=== PATIENT | female | born 1940 | race Caucasian/White ===

== ENCOUNTER 2018-10-15 04:49 | Emergency (ER) | payer OTHER, MEDICARE ==
[2018-10-15 05:57] LABS: Urine Appearance CLOUDY; Urine Bilirubin NEGATIVE (NEG); Urine Blood 1+ (NEG); Urine Color YELLOW; Urine Glucose NEGATIVE (NEG); Urine Microscopic Reflex ORDER UMIC; Urine Protein 2+ (NEG); Urine Urobilinogen 0.2 mg/dL (0.2-1.0); Urine pH 5.5 (5.0-7.0)
[2018-10-15 05:59] LABS: Urine Blood 1+ (NEG); Urine Glucose NEGATIVE (NEG); Urine Protein 2+ (NEG); Urine Specific Gravity 1.015 (1.005-1.030)
[2018-10-15 06:06] LABS: Absolute Lymphocytes (CBC) 1.4 K/uL (0.7-4.9); Absolute Monocytes 0.4 K/uL (0.1-1.3); Absolute Neutrophil 4.4 K/uL (1.8-8.0); Basophils % 0.6 % (0-1.3); Eosinophils % 3.8 % (0-4.4); Hematocrit 38.2 % (36.0-45.0); Lymphocytes % 21.9 % (15.3-44.8); MCH 31.3 pg (27.0-35.0); MCV 91.3 fL (80-100); MPV 8.8 fL (7.6-11.3); Monocytes % 5.8 % (3.3-12.3); RBC Red Blood Cell Count 4.18 M/uL (3.86-4.86)
[2018-10-15 06:09] LABS: Urine Bacteria <20 /HPF (<20); Urine Culture Reflex Order REFLEXED; Urine RBC <5 /HPF (NONE SEEN)
[2018-10-15 06:36] LABS: Albumin 3.7 g/dL (3.4-5.0); Bilirubin Direct 0.2 mg/dL (0-0.2); Bilirubin Total 0.5 mg/dL (0.2-1.0); Potassium 4.1 mmol/L (3.5-5.1); Protein, Total 7.6 g/dL (6.4-8.2)
[2018-10-15] MEDS ORDERED: NA CHLORIDE 0.9% 500 ML ONE (06:36)
[2018-10-15] MEDS ORDERED: CEFTRIAXONE/SWI 1gm 1 GM/10 ML SYR ONE (06:37)
--- NOTE | 2018-10-15 08:11 | EDPHYS ---
Physician Documentation [facility] Name: Tsering Osman Age: 78 yrs Sex: Female : 1940 Arrival Date: 10/15/2018 Time: 04:50 Bed 20 Private MD: Alexia Arellano C ED Physician Maulik Webster HPI: 10/15 06:18 This 78 yrs old Female presents to ER via Ambulatory with complaints of Back gris Pain. 06:18 The patient presents with pain that is acute. The symptoms are located in the low back, gris lumbar spine. Onset: The symptoms/episode began/occurred 2 day(s) ago. The pain does not radiate. Associated signs and symptoms: The patient has no apparent associated signs or symptoms. Modifying factors: The patient symptoms are alleviated by remaining still, the patient symptoms are aggravated by movement. Severity of symptoms: At their worst the symptoms were mild, moderate, in the emergency department the symptoms are unchanged. The patient has not experienced similar symptoms in the past. Historical: - Allergies: 05:12 NKA; jd3 - Home Meds: 05:12 aspirin 81 mg Oral chew 1 tab once daily [Active]; atorvastatin 20 mg Oral tab 1 tab jd3 nightly [Active]; Centrum Silver Oral daily [Active]; Coreg 6.25 mg Oral tab 1 tab 2 times per day [Active]; ferrous sulfate 325 mg (65 mg iron) Oral tab 2 tab daily [Active]; Flovent Inhl 100 mcg twice a day [Active]; furosemide 40 mg Oral tab 1 tab 2 times per day [Active]; gabapentin 300 mg Oral cap 3 times per day [Active]; glimepiride 4 mg Oral tab 1 tab twice a day [Active]; Oxybutynin Chloride Oral 1 tab once daily [Active]; trazodone 50 mg Oral tab nightly [Active]; Ventolin HFA 90 mcg/actuation Nebulizer HFAA 2 puffs Q4H prn [Active]; Plavix 75 mg Oral tab 1 tab once daily [Active]; Onglyza 5 mg oral tab 1 tab once daily [Active]; magnesium oxide 400 mg oral tab 400 mg daily [Active]; - PMHx: 05:12 CHF; Diabetes - NIDDM; Hyperlipidemia; Hypertension; jd3 - PSHx: 05:12 right knee sx; back sx; Heart stents; jd3 - Immunization history:: Adult Immunizations up to date, Pneumococcal vaccine is not up to date, Flu vaccine is not up to date. - Social history:: Smoking status: Patient/guardian denies using tobacco. - Ebola Screening: : Patient negative for fever greater than or equal to 101.5 degrees Fahrenheit, and additional compatible Ebola Virus Disease symptoms. - Family history:: not pertinent. ROS: 06:18 Constitutional: Negative for fever, chills, and weight loss, Eyes: Negative for injury, gris pain, redness, and discharge, ENT: Negative for injury, pain, and discharge, Neck: Negative for injury, pain, and swelling, Cardiovascular: Negative for chest pain, palpitations, and edema, Respiratory: Negative for shortness of breath, cough, wheezing, and pleuritic chest pain, Abdomen/GI: Negative for abdominal pain, nausea, vomiting, diarrhea, and constipation, : Negative for injury, bleeding, discharge, and swelling, MS/Extremity: Negative for injury and deformity, Skin: Negative for injury, rash, and discoloration, Neuro: Negative for headache, weakness, numbness, tingling, and seizure, Psych: Negative for depression, anxiety, suicide ideation, homicidal ideation, and hallucinations, Allergy/Immunology: Negative for hives, rash, and allergies, Endocrine: Negative for neck swelling, polydipsia, polyuria, polyphagia, and marked weight changes, Hematologic/Lymphatic: Negative for swollen nodes, abnormal bleeding, and unusual bruising. 06:18 Back: Positive for decreased range of motion, pain at rest, pain with movement, flank pain, on the right. Exam: 06:18 Constitutional: This is a well developed, well nourished patient who is awake, alert, gris and in no acute distress. Head/Face: Normocephalic, atraumatic. Eyes: Pupils equal round and reactive to light, extra-ocular motions intact. Lids and lashes normal. Conjunctiva and sclera are non-icteric and not injected. Cornea within normal limits. Periorbital areas with no swelling, redness, or edema. ENT: Nares patent. No nasal discharge, no septal abnormalities noted. Tympanic membranes are normal and external auditory canals are clear. Oropharynx with no redness, swelling, or masses, exudates, or evidence of obstruction, uvula midline. Mucous membranes moist. Neck: Trachea midline, no thyromegaly or masses palpated, and no cervical lymphadenopathy. Supple, full range of motion without nuchal rigidity, or vertebral point tenderness. No Meningismus. Chest/axilla: Normal chest wall appearance and motion. Nontender with no deformity. No lesions are appreciated. Cardiovascular: Regular rate and rhythm with a normal S1 and S2. No gallops, murmurs, or rubs. Normal PMI, no JVD. No pulse deficits. Respiratory: Lungs have equal breath sounds bilaterally, clear to auscultation and percussion. No rales, rhonchi or wheezes noted. No increased work of breathing, no retractions or nasal flaring. Abdomen/GI: Soft, non-tender, with normal bowel sounds. No distension or tympany. No guarding or rebound. No evidence of tenderness throughout. Female : Normal external genitalia. Skin: Warm, dry with normal turgor. Normal color with no rashes, no lesions, and no evidence of cellulitis. MS/ Extremity: Pulses equal, no cyanosis. Neurovascular intact. Full, normal range of motion. Neuro: Awake and alert, GCS 15, oriented to person, place, time, and situation. Cranial nerves II-XII grossly intact. Motor strength 5/5 in all extremities. Sensory grossly intact. Cerebellar exam normal. Normal gait. Psych: Awake, alert, with orientation to person, place and time. Behavior, mood, and affect are within normal limits. 06:18 Back: pain, that is mild, ROM is painful, normal spinal alignment noted, CVA tenderness, is absent. Vital Signs: 05:12 BP 171 / 83; Pulse 81; Resp 18 S; Temp 99.1(O); Pulse Ox 95% on R/A; Weight 90.72 kg jd3 (R); Height 5 ft. 7 in. (170.18 cm) (R); Pain 8/10; 06:52 BP 176 / 78; Pulse 79; Resp 16 S; Pulse Ox 94% on R/A; jd3 07:35 BP 167 / 75; Pulse 80; Resp 18; Pulse Ox 100% on R/A; hj 08:50 BP 158 / 74; Pulse 79; Resp 18; Pulse Ox 96% on R/A; hj 05:12 Body Mass Index 31.32 (90.72 kg, 170.18 cm) jd3 MDM: 05:18 Patient medically screened. tw4 05:59 Patient medically screened. [facility] 06:20 Data reviewed: vital signs, nurses notes, lab test result(s), radiologic studies, CT gris scan. 10/15 05:18 Order name: Basic Metabolic Panel [facility] 10/15 05:18 Order name: CBC with Diff [facility] 10/15 05:18 Order name: Creatinine for Radiology [facility] 10/15 05:18 Order name: Hepatic Function [facility] 10/15 05:18 Order name: Lipase [facility] 10/15 05:18 Order name: Urinalysis [facility] 10/15 05:51 Order name: Urine Dipstick--Ancillary (enter results) [facility] 10/15 05:57 Order name: Urinalysis; Complete Time: 06:16 [facility] 10/15 05:59 Order name: Urine Dipstick-Ancillary; Complete Time: 06:16 [facility] 10/15 06:10 Order name: Urine Microscopic Only; Complete Time: 06:16 [facility] 10/15 06:12 Order name: CBC with Automated Diff; Complete Time: 06:16 [facility] 10/15 06:37 Order name: Basic Metabolic Panel; Complete Time: 08:01 [facility] 10/15 06:37 Order name: Liver (Hepatic) Function; Complete Time: 08:01 [facility] 10/15 06:37 Order name: Lipase; Complete Time: 08:01 [facility] 10/15 05:18 Order name: IV Saline Lock; Complete Time: 05:48 [facility] 10/15 05:18 Order name: Labs collected and sent; Complete Time: 05:48 [facility] 10/15 06:17 Order name: CT Stone Protocol [facility] 10/15 06:37 Order name: Creatinine (Radiology Only); Complete Time: 08:01 [facility] 10/15 08:16 Order name: CT EDMS Administered Medications: 06:50 Drug: NS 0.9% 500 ml Route: IV; Rate: bolus; Site: left antecubital; jd3 07:30 Follow up: IV Status: Completed infusion hj 06:50 Drug: Rocephin - (cefTRIAXone) 1 grams Route: IVPB; Infused Over: 30 mins; Site: left jd3 antecubital; 07:00 Follow up: IV Status: Completed infusion hj 08:10 Drug: Cipro 500 mg Route: PO; hj 08:45 Follow up: Response: No adverse reaction hj 08:10 Drug: Dilaudid 0.5 mg Route: IVP; Site: left antecubital; hj 08:45 Follow up: Response: No adverse reaction; Pain is decreased hj 08:10 Drug: Zofran 4 mg Route: IVP; Site: left antecubital; hj 08:45 Follow up: Response: No adverse reaction; Nausea is decreased hj 08:10 Drug: Richardson 5 mg-325 mg 1 tabs Route: PO; hj 08:45 Follow up: Response: No adverse reaction; Pain is decreased Point of Care Testing: Blood Glucose: 07:43 Blood Glucose: 254 mg/dL; jb1 Ranges: Critical Glucose Levels:Adult <50 mg/dl or >400 mg/dl <40 mg/dl or >180 mg/dl Disposition: 10/15/18 08:10 Discharged to Home. Impression: Low back pain, Urinary tract infection, site not specified, Type 2 diabetes mellitus, Obesity, unspecified, Unspecified kidney failure, Cholelithiasis. - Condition is Stable. - Discharge Instructions: Back Pain, Adult, Chronic Back Pain, Type 2 Diabetes Mellitus, Diagnosis, Adult, Dysuria, Obesity, Adult, Urinary Tract Infection, Adult, Cholelithiasis, Cholelithiasis, [id number]. - Prescriptions for Skelaxin 800 mg Oral Tablet - take 1 tablet by ORAL route every 8 hours As needed; 21 tablet. Tylenol- Codeine #3 300-30 mg Oral Tablet - take 2 tablets by ORAL route every 6 hours As needed; 26 tablet. Cipro 250 mg Oral Tablet - take 1 tablet by ORAL route every 12 hours; 14 tablet. - Medication Reconciliation Form, Thank You Letter, Antibiotic Education, Prescription Opioid Use form. - Follow up: A Arellano; When: 2 - 3 days; Reason: Recheck today's complaints, Continuance of care, Re-evaluation by your physician. - Problem is new. - Symptoms have improved. Signatures: Dispatcher [employer] Maulik Trent MD MD cha Joaquin, Henry, RN RN hj Davies, Jonathon, RN RN jd3 Wadley, Terrence, MD MD tw4 Corrections: (The following items were deleted from the chart) 08:11 08:10 10/15/2018 08:10 Discharged to Home. Impression: Low back pain; Urinary tract gris infection, site not specified; Type 2 diabetes mellitus; Obesity, unspecified; Unspecified kidney failure. Condition is Stable. Discharge Instructions: Back Pain, Adult, Chronic Back Pain, Type 2 Diabetes Mellitus, Diagnosis, Adult, Dysuria, Obesity, Adult, Urinary Tract Infection, Adult. Prescriptions for Skelaxin 800 mg Oral Tablet - take 1 tablet by ORAL route every 8 hours As needed; 21 tablet, Tylenol-Codeine #3 300-30 mg Oral Tablet - take 2 tablets by ORAL route every 6 hours As needed; 26 tablet, Cipro 500 mg Oral Tablet - take 1 tablet by ORAL route every 12 hours for 7 days; 14 tablet. and Forms are Medication Reconciliation Form, Thank You Letter, Antibiotic Education, Prescription Opioid Use. Follow up: A Arellano; When: 2 - 3 days; Reason: Recheck today's complaints, Continuance of care, Re-evaluation by your physician. Problem is new. Symptoms have improved. [facility] 08:51 08:11 10/15/2018 08:10 Discharged to Home. Impression: Low back pain; Urinary tract hj infection, site not specified; Type 2 diabetes mellitus; Obesity, unspecified; Unspecified kidney failure; Cholelithiasis. Condition is Stable. Discharge Instructions: Back Pain, Adult, Chronic Back Pain, Type 2 Diabetes Mellitus, Diagnosis, Adult, Dysuria, Obesity, Adult, Urinary Tract Infection, Adult. Prescriptions for Skelaxin 800 mg Oral Tablet - take 1 tablet by ORAL route every 8 hours As needed; 21 tablet, Tylenol-Codeine #3 300-30 mg Oral Tablet - take 2 tablets by ORAL route every 6 hours As needed; 26 tablet, Cipro 500 mg Oral Tablet - take 1 tablet by ORAL route every 12 hours for 7 days; 14 tablet. and Forms are Medication Reconciliation Form, Thank You Letter, Antibiotic Education, Prescription Opioid Use. Follow up: A Arellano; When: 2 - 3 days; Reason: Recheck today's complaints, Continuance of care, Re-evaluation by your physician. Problem is new. Symptoms have improved. gris
--- NOTE | 2018-10-15 08:11 | ER ---
Nurse's Notes [facility] Name: Tsering Osman Age: 78 yrs Sex: Female : 1940 Arrival Date: 10/15/2018 Time: 04:50 Bed 20 Private MD: Alexia Arellano C Diagnosis: Low back pain;Urinary tract infection, site not specified;Type 2 diabetes mellitus;Obesity, unspecified;Unspecified kidney failure;Cholelithiasis Presentation: 10/15 05:02 Presenting complaint: Patient states: "I have been having lower back spasms for 3 weeks jd3 now.". Transition of care: patient was not received from another setting of care. Onset of symptoms was September 26, 2018. Risk Assessment: Do you want to hurt yourself or someone else? Patient reports no desire to harm self or others. Initial Sepsis Screen: Does the patient meet any 2 criteria? No. Patient's initial sepsis screen is negative. Does the patient have a suspected source of infection? No. Patient's initial sepsis screen is negative. Care prior to arrival: Medication(s) given: Tylenol, taken at 0350. 05:02 Method Of Arrival: Ambulatory jd3 05:02 Acuity: MANNIE 4 jd3 Historical: - Allergies: 05:12 NKA; jd3 - Home Meds: 05:12 aspirin 81 mg Oral chew 1 tab once daily [Active]; atorvastatin 20 mg Oral tab 1 tab jd3 nightly [Active]; Centrum Silver Oral daily [Active]; Coreg 6.25 mg Oral tab 1 tab 2 times per day [Active]; ferrous sulfate 325 mg (65 mg iron) Oral tab 2 tab daily [Active]; Flovent Inhl 100 mcg twice a day [Active]; furosemide 40 mg Oral tab 1 tab 2 times per day [Active]; gabapentin 300 mg Oral cap 3 times per day [Active]; glimepiride 4 mg Oral tab 1 tab twice a day [Active]; Oxybutynin Chloride Oral 1 tab once daily [Active]; trazodone 50 mg Oral tab nightly [Active]; Ventolin HFA 90 mcg/actuation Nebulizer HFAA 2 puffs Q4H prn [Active]; Plavix 75 mg Oral tab 1 tab once daily [Active]; Onglyza 5 mg oral tab 1 tab once daily [Active]; magnesium oxide 400 mg oral tab 400 mg daily [Active]; - PMHx: 05:12 CHF; Diabetes - NIDDM; Hyperlipidemia; Hypertension; jd3 - PSHx: 05:12 right knee sx; back sx; Heart stents; jd3 - Immunization history:: Adult Immunizations up to date, Pneumococcal vaccine is not up to date, Flu vaccine is not up to date. - Social history:: Smoking status: Patient/guardian denies using tobacco. - Ebola Screening: : Patient negative for fever greater than or equal to 101.5 degrees Fahrenheit, and additional compatible Ebola Virus Disease symptoms. - Family history:: not pertinent. Screenin:16 Abuse screen: Denies threats or abuse. Nutritional screening: No deficits noted. jd3 Tuberculosis screening: No symptoms or risk factors identified. Fall Risk Ambulatory Aid- Crutches/Cane/Walker (15 pts). Gait- Weak (10 pts.). Mental Status- Oriented to own ability (0 pts). Total Handy Fall Scale indicates Low Risk Score (25-44 pts). Fall prevention measures have been instituted. Side Rails Up X 2 Placed close to Nursing Station Frequent Obs/Assesments occuring Family Present and informed to notify staff if they need to leave bedside. Assessment: 05:14 General: Appears in no apparent distress. uncomfortable, Behavior is calm, cooperative, jd3 appropriate for age. Pain: Complains of pain in low back area Pain currently is 8 out of 10 on a pain scale. Quality of pain is described as aching, Is intermittent. Neuro: Level of Consciousness is awake, alert, obeys commands, Oriented to person, place, time, situation, Moves all extremities. Cardiovascular: Capillary refill < 3 seconds Patient's skin is warm and dry. Respiratory: Airway is patent Respiratory effort is even, unlabored, Respiratory pattern is regular, symmetrical. GI: No signs and/or symptoms were reported involving the gastrointestinal system. : Reports urinary frequency. EENT: No signs and/or symptoms were reported regarding the EENT system. Derm: Skin is intact, Skin is dry, Skin is normal, Skin temperature is warm. Musculoskeletal: Circulation, motion, and sensation intact. Range of motion: intact in all extremities. 06:15 Reassessment: Patient appears in no apparent distress at this time. Patient and/or jd3 family updated on plan of care and expected duration. Pain level reassessed. Patient is alert, oriented x 3, equal unlabored respirations, skin warm/dry/pink. 06:53 Reassessment: Patient appears in no apparent distress at this time. Patient and/or jd3 family updated on plan of care and expected duration. Pain level reassessed. Patient is alert, oriented x 3, equal unlabored respirations, skin warm/dry/pink. 07:00 General: Appears in no apparent distress. uncomfortable, Behavior is calm, cooperative, hj appropriate for age. Pain: Complains of pain in lumbar spine and back and low back area Pain Quality of pain is described as aching, Is intermittent. Neuro: Level of Consciousness is awake, alert, obeys commands, Oriented to person, place, time, situation, Moves all extremities. Cardiovascular: Capillary refill < 3 seconds Patient's skin is warm and dry. Respiratory: Airway is patent Respiratory effort is even, unlabored, Respiratory pattern is regular, symmetrical. GI: No signs and/or symptoms were reported involving the gastrointestinal system. : Reports urinary frequency. EENT: No signs and/or symptoms were reported regarding the EENT system. Derm: Skin is intact, Skin is dry. Musculoskeletal: Circulation, motion, and sensation intact. Range of motion: intact in all extremities. 08:50 Reassessment: Patient and/or family updated on plan of care and expected duration. Pain hj level reassessed. Patient is alert, oriented x 3, equal unlabored respirations, skin warm/dry/pink. Patient states feeling better. Patient states symptoms have improved. Vital Signs: 05:12 BP 171 / 83; Pulse 81; Resp 18 S; Temp 99.1(O); Pulse Ox 95% on R/A; Weight 90.72 kg [facility] (R); Height 5 ft. 7 in. (170.18 cm) (R); Pain 8/10; 06:52 BP 176 / 78; Pulse 79; Resp 16 S; Pulse Ox 94% on R/A; jd3 07:35 BP 167 / 75; Pulse 80; Resp 18; Pulse Ox 100% on R/A; hj 08:50 BP 158 / 74; Pulse 79; Resp 18; Pulse Ox 96% on R/A; hj 05:12 Body Mass Index 31.32 (90.72 kg, 170.18 cm) [facility] ED Course: 04:50 Patient arrived in ED. am2 04:51 Alexia Arellano MD is Private Physician. am2 05:01 Theron Scruggs, RN is Primary Nurse. jd3 05:04 Triage completed. jd3 05:13 Arm band placed on. jd3 05:16 Patient has correct armband on for positive identification. Bed in low position. Call jd3 light in reach. Side rails up X 1. Adult w/ patient. 05:17 Braeden Lraa MD is Attending Physician. tw4 05:38 Inserted saline lock: 22 gauge in left antecubital area, using aseptic technique. Blood jd3 collected. 05:48 Urinalysis Sent. jd3 05:48 Basic Metabolic Panel Sent. jd3 05:49 CBC with Diff Sent. jd3 05:49 Creatinine for Radiology Sent. jd3 05:49 Hepatic Function Sent. jd3 05:49 Lipase Sent. jd3 05:59 Maulik Webster MD is Attending Physician. gris 06:[address] via wheelchair. kw1 06:39 CT completed. Patient tolerated procedure well. Patient moved back from CT. kw1 07:47 Evaristo Quesada, CUCA is Primary Nurse. hj 08:10 Alexia Arellano MD is Referral Physician. gris 08:49 No provider procedures requiring assistance completed. IV discontinued, intact, hj bleeding controlled, No redness/swelling at site. Pressure dressing applied. Administered Medications: 06:50 Drug: NS 0.9% 500 ml Route: IV; Rate: bolus; Site: left antecubital; jd3 07:30 Follow up: IV Status: Completed infusion hj 06:50 Drug: Rocephin - (cefTRIAXone) 1 grams Route: IVPB; Infused Over: 30 mins; Site: left jd3 antecubital; 07:00 Follow up: IV Status: Completed infusion hj 08:10 Drug: Cipro 500 mg Route: PO; hj 08:45 Follow up: Response: No adverse reaction hj 08:10 Drug: Dilaudid 0.5 mg Route: IVP; Site: left antecubital; hj 08:45 Follow up: Response: No adverse reaction; Pain is decreased hj 08:10 Drug: Zofran 4 mg Route: IVP; Site: left antecubital; hj 08:45 Follow up: Response: No adverse reaction; Nausea is decreased hj 08:10 Drug: Raymond 5 mg-325 mg 1 tabs Route: PO; 08:45 Follow up: Response: No adverse reaction; Pain is decreased Point of Care Testing: Blood Glucose: 07:43 Blood Glucose: 254 mg/dL; jb1 Ranges: Outcome: 08:10 Discharge ordered by . gris 08:49 Discharged to home ambulatory, with family. 08:49 Condition: stable 08:49 Discharge instructions given to patient, family, Instructed on discharge instructions, follow up and referral plans. medication usage, Demonstrated understanding of instructions, follow-up care, medications, Prescriptions given X 3. 08:51 Patient left the ED. Addendum: 10/18/2018 07:14 Addendum: Culture Results: Positive urine culture. No further action required. Bacteria s s sensitive to prescribed antibiotic. Signatures: Adrian Torre jb1 Maulik Webster MD MD cha Smirch, Shelby, RN RN ss Evaristo Quesada RN RN hj Moreno, Amanda am2 Davies, Jonathon, RN RN jMiladis Raza kw1 Braeden Lara MD MD tw4
--- NOTE | 2018-10-15 08:16 | RAD REPORT ---
EXAM DESCRIPTION: CT - Stone Protocol - 10/15/2018 6:40 am CLINICAL HISTORY: Flank pain. PAIN COMPARISON: Abdomen Pelvis Wo Contrast dated 07/02/2016 TECHNIQUE: Axial images were obtained without oral or IV contrast. Lack of contrast limits solid org an and vascular assessment. The [id number] spans the entirety of the system partially obscuring uppermost abdomen and lung bases. Coronal reformatted images were obtained and reviewed. All CT scans are performed using dose optimization technique as appropriate and may include automated exposure control or mA/KV adjustment according to patient size. FINDINGS: The lower lung eckert are clear. Imaged portions of the liver and spleen show no suspicious findings on non-contrast imaging.Cholelith iasis. The pancreas and adrenal glands are normal. No pathologic lymphadenopathy in the abdomen or pe lvis. No urinary tract stones or obstructive uropathy. Urinary bladder is thickened with air present. No bowel obstruction, free air, free fluid or abscess. 5.1 cm left adnexal cystic appearing lesion is again noted, appearing quite similar to the prior study.The appendix is not identified as a discrete structure, however, no secondary findings of appendicitis are identified. Prominent lumbar degenerative changes are noted. 9 mm anterolisthesis of L4 on 5 is seen. IMPRESSION: Significant bladder wall thickening is present with air present in the urinary bladder s uggesting chronic inflammation/cystitis. Cystoscopy followup may be of value. Cholelithiasis. 5.1 cm left adnexal cystic lesion, unchanged. Prominent lumbar degenerative changes.
[2018-10-15] MEDS ORDERED: CIPROFLOXACIN HCL 500 MG TAB ONE (08:29)
[2018-10-15] MEDS ORDERED: HYDROMORPHONE HCL 0.5 MG/0.5 ML INJ ONE (08:30)
[2018-10-15] MEDS ORDERED: ONDANSETRON 4 MG/2 ML VIAL ONE (08:30)
[2018-10-15] MEDS ORDERED: HYDROCODONE/APAP 5/325 MG TAB ONE (08:30)
[2018-10-15 09:04] VITALS: TEMP 99.1
[2018-10-15 09:08] VITALS: BP 158/74; O2SAT 96
== END 2018-10-15 08:51 | disposition home or self-care (01) ==
LOC: ER 04:49
DX: N39.0 Urinary tract infection, site not specified (principal); K80.20 Calculus of gallbladder without cholecystitis without obstruction; N19 Unspecified kidney failure; E11.9 Type 2 diabetes mellitus without complications; E66.9 Obesity, unspecified; I10 Essential (primary) hypertension; E78.5 Hyperlipidemia, unspecified; Z95.818 Presence of other cardiac implants and grafts; Z79.01 Long term (current) use of anticoagulants; Z79.82 Long term (current) use of aspirin
CPT/HCPCS: 36415; 74176; 76377; 80048; 80076; 83690; 85025; 87077; 87086; 87088; 87186; 96361; 96374; 96375; 99284; J0696; J1170; J2405; 81003; 81015

== ENCOUNTER 2019-10-22 06:32 | Inpatient (IN) | payer OTHER, MEDICARE ==
[2019-10-22] MEDS ORDERED: ALBUTEROL 2.5 MG/3 ML NEB SOL ONE (06:46)
[2019-10-22 07:19] LABS: Absolute Lymphocytes (CBC) 1.1 K/uL (0.7-4.9); Basophils % 0.8 % (0-1.3); Hematocrit 34.7 % (36.0-45.0); Lymphocytes % 13.3 % (15.3-44.8); MPV 8.2 fL (7.6-11.3); RBC Red Blood Cell Count 3.84 M/uL (3.86-4.86)
[2019-10-22 07:46] LABS: Albumin 3.2 g/dL (3.4-5.0); Bilirubin Direct 0.2 mg/dL (0-0.2); Bilirubin Total 0.5 mg/dL (0.2-1.0); Magnesium 2.5 mg/dL (1.8-2.4); Potassium 4.6 mmol/L (3.5-5.1); Protein, Total 7.3 g/dL (6.4-8.2)
[2019-10-22 07:47] LABS: Troponin (Emerg Dept Use Only) 1.21 ng/mL (0.0-0.045)
[2019-10-22 07:52] LABS: Protime INR 1.11
[2019-10-22] MEDS ORDERED: ASPIRIN 81 MG CHEWABLE TABLET ONE (07:57)
[2019-10-22] MEDS ORDERED: ENOXAPARIN 100 MG/ML SYR SQ ONE (07:57)
[2019-10-22] MEDS ORDERED: FUROSEMIDE 20 MG/ 2ML VIAL ONE (07:57)
[2019-10-22] MEDS ORDERED: FUROSEMIDE 40 MG/4 ML VIAL ONE (07:58)
--- NOTE | 2019-10-22 08:07 | EDPHYS ---
Physician Documentation [facility] Name: Tsering Osman Age: 79 yrs Sex: Female : 1940 Arrival Date: 10/22/2019 Time: 06:[address] Private MD: ED Physician Bob Benjamin HPI: 10/22 07:21 This 79 yrs old Female presents to ER via EMS with complaints of shortness of jr8 breath. 07:21 The patient has shortness of breath at rest. Onset: The symptoms/episode began/occurred jr8 gradually, 2 day(s) ago. Duration: The symptoms are continuous. The patient's shortness of breath is aggravated by light activity, walking. Associated signs and symptoms: Pertinent positives: general weakness . Severity of symptoms: At their worst the symptoms were moderate in the emergency department the symptoms are unchanged. It is unknown whether or not the patient has had similar symptoms in the past. The patient has not recently seen a physician. Patient stated that she has been having mild difficulty breathing for past several days but thought it was secondary from her asthma. Stated that it has abruptly become worse over past two days. Very week. Called EMS this morning because she was so weak. EMS reported 88% RA saturation. Patient denies any other complaints at this time . Historical: - Allergies: 06:39 NKA; ao - Home Meds: 07:02 aspirin 81 mg Oral chew 1 tab once daily [Active]; atorvastatin 20 mg Oral tab 1 tab tw2 nightly [Active]; Centrum Silver Oral daily [Active]; Coreg 6.25 mg Oral tab 1 tab 2 times per day [Active]; ferrous sulfate 325 mg (65 mg iron) Oral tab 2 tab daily [Active]; Flovent Inhl 100 mcg twice a day [Active]; furosemide 40 mg Oral tab 1 tab 2 times per day [Active]; glimepiride 4 mg Oral tab 1 tab twice a day [Active]; gabapentin 300 mg Oral cap 3 times per day [Active]; magnesium oxide 400 mg Oral tab 400 mg daily [Active]; Onglyza 5 mg Oral tab 1 tab once daily [Active]; Oxybutynin Chloride Oral 1 tab once daily [Active]; Plavix 75 mg Oral tab 1 tab once daily [Active]; trazodone 50 mg Oral tab nightly [Active]; Ventolin HFA 90 mcg/actuation Nebulizer HFAA 2 puffs Q4H prn [Active]; - PMHx: 06:39 CHF; Hyperlipidemia; Diabetes - NIDDM; Hypertension; ao - PSHx: 07:02 right knee sx; back sx; Heart stents; tw2 - Immunization history:: Adult Immunizations up to date. - Social history:: Smoking status: Patient uses tobacco products, denies chronic smoking, but will smoke occasionally. - Ebola Screening: : Patient negative for fever greater than or equal to 101.5 degrees Fahrenheit, and additional compatible Ebola Virus Disease symptoms Patient denies exposure to infectious person Patient denies travel to an Ebola-affected area in the 21 days before illness onset. ROS: 07:21 Eyes: Negative for injury, pain, redness, and discharge, ENT: Negative for injury, jr8 pain, and discharge, Neck: Negative for injury, pain, and swelling, Cardiovascular: Negative for chest pain, palpitations, and edema, Abdomen/GI: Negative for abdominal pain, nausea, vomiting, diarrhea, and constipation, Back: Negative for injury and pain, MS/Extremity: Negative for injury and deformity, Skin: Negative for injury, rash, and discoloration, Neuro: Negative for headache, weakness, numbness, tingling, and seizure. 07:21 Constitutional: Positive for fatigue. 07:21 Respiratory: Positive for shortness of breath. Exam: 07:21 Constitutional: This is a well developed, well nourished patient who is awake, alert, jr8 and in no acute distress. Eyes: Pupils equal round and reactive to light, extra-ocular motions intact. Lids and lashes normal. Conjunctiva and sclera are non-icteric and not injected. Cornea within normal limits. Periorbital areas with no swelling, redness, or edema. ENT: Nares patent. No nasal discharge, no septal abnormalities noted. Tympanic membranes are normal and external auditory canals are clear. Oropharynx with no redness, swelling, or masses, exudates, or evidence of obstruction, uvula midline. Mucous membranes moist. Neck: Trachea midline, no thyromegaly or masses palpated, and no cervical lymphadenopathy. Supple, full range of motion without nuchal rigidity, or vertebral point tenderness. No Meningismus. Respiratory: Lungs have equal breath sounds bilaterally, clear to auscultation and percussion. No rales, rhonchi or wheezes noted. No increased work of breathing, no retractions or nasal flaring. Abdomen/GI: Soft, non-tender, with normal bowel sounds. No distension or tympany. No guarding or rebound. No evidence of tenderness throughout. Back: No spinal tenderness. No costovertebral tenderness. Full range of motion. Skin: Warm, dry with normal turgor. Normal color with no rashes, no lesions, and no evidence of cellulitis. MS/ Extremity: Pulses equal, no cyanosis. Neurovascular intact. Full, normal range of motion. Neuro: Awake and alert, GCS 15, oriented to person, place, time, and situation. Cranial nerves II-XII grossly intact. Motor strength 5/5 in all extremities. Sensory grossly intact. Cerebellar exam normal. Normal gait. 07:21 Cardiovascular: Rate: normal, Rhythm: regular, Pulses: Pulses are 2+ in right radial artery and left radial artery. Heart sounds: normal, normal S1and S2, no S3 or S4, no murmur, no rub, no gallop, Edema: 1+ edema to level of left ankle, left foot, right ankle and right foot, JVD: is not appreciated. Vital Signs: 06:38 BP 132 / 72; Pulse 76; Resp 20; Pulse Ox 88% on R/A; Weight 113.4 kg (R); Height 5 ft. ao 4 in. (162.56 cm) (R); 07:44 BP 138 / 66; Pulse 76; Resp 20; Temp 97.9(TE); Pulse Ox 94% on 4 lpm NC; tw2 08:16 BP 134 / 92; Pulse 81; Resp 20; Pulse Ox 97% on 4 lpm NC; tw2 06:38 Body Mass Index 42.91 (113.40 kg, 162.56 cm) ao MDM: 06:40 Patient medically screened. jr8 07:59 Data reviewed: vital signs, nurses notes, lab test result(s), EKG, radiologic studies, jr8 plain films. Data interpreted: Pulse oximetry: on room air is 88 %. Interpretation: hypoxia. Counseling: I had a detailed discussion with the patient and/or guardian regarding: the historical points, exam findings, and any diagnostic results supporting the discharge/admit diagnosis, lab results, radiology results, the need for further work-up and treatment in the hospital. 08:01 ED course: Both Dr. Arellano and Dr. Paulino consulted. Both accepted and will see patient .10/22 06:40 Order name: Basic Metabolic Panel; Complete Time: 07:49 10/22 06:40 Order name: CBC with Diff; Complete Time: 07:38 10/22 06:40 Order name: LFT's; Complete Time: 07:49 10/22 06:40 Order name: Magnesium; Complete Time: 07:49 10/22 06:40 Order name: NT PRO-BNP; Complete Time: 07:49 10/22 06:40 Order name: PT-INR; Complete Time: 07:58 10/22 06:40 Order name: Troponin (emerg Dept Use Only); Complete Time: 07:49 10/22 06:40 Order name: XRAY Chest (1 view); Complete Time: 09:13 10/22 07:52 Order name: Echo w/ Doppler [facility] 10/22 08:34 Order name: Urine Microscopic Only; Complete Time: 11:17 10/22 09:12 Order name: Urine Dipstick--Ancillary (enter results) 10/22 09:14 Order name: XRAY Chest Pa And Lat (2 Views) [facility] 10/22 09:44 Order name: Urine Dipstick-Ancillary; Complete Time: 11:17 EDMS 10/22 06:40 Order name: EKG; Complete Time: 06:41 10/22 06:40 Order name: Cardiac monitoring; Complete Time: 06:51 10/22 06:40 Order name: EKG - Nurse/Tech; Complete Time: 06:51 10/22 06:40 Order name: IV Saline Lock; Complete Time: 07:04 10/22 06:40 Order name: Labs collected and sent; Complete Time: 07:04 10/22 06:40 Order name: O2 Per Protocol; Complete Time: 06:51 10/22 06:40 Order name: O2 Sat Monitoring; Complete Time: 06:51 10/22 08:34 Order name: Straight Cath - Urine; Complete Time: 08:35 10/22 08:34 Order name: Urine Dipstick-Ancillary (obtain specimen); Complete Time: 08:36 jr8 10/22 08:50 Order name: CONS Physician Consult EDMS Administered Medications: 06:55 Drug: Albuterol 2.5 mg Route: Inhalation; jb4 08:36 Follow up: Response: No adverse reaction tw2 06:55 Drug: Albuterol 2.5 mg Route: Inhalation; tw2 06:55 Drug: Albuterol 2.5 mg Route: Inhalation; tw2 08:05 Drug: Lasix 60 mg Route: IVP; Site: left forearm; tw2 08:37 Follow up: Response: No adverse reaction tw2 08:05 Drug: Aspirin Chewable Tablet 324 mg Route: PO; tw2 08:36 Follow up: Response: No adverse reaction tw2 08:05 Drug: Lovenox 1 mg/kg Route: Sub-Q; Site: right lower abdomen; tw2 08:36 Follow up: Response: No adverse reaction tw2 Disposition: 10/22/19 08:02 Hospitalization ordered by Alexia Arellano for Inpatient Admission. Preliminary diagnosis are Non-ST elevation (NSTEMI) myocardial infarction, Acute respiratory failure with hypoxia, Chronic kidney disease (CKD). - Bed requested for Telemetry/MedSurg (Inpatient). - Status is Inpatient Admission. tw2 - Condition is Stable. - Problem is new. - Symptoms have improved. UTI on Admission? No Addendum: 10/23/2019 19:04 Co-signature as Attending Physician, Bob Benjamin MD. p kl Signatures: Dispatcher [employer] EDMS Marta borja Bob Gunn MD MD pkl Roszak, Josh, PA PA jr8 Jewel Reyes RN RN ao Wise, Tara, RN RN tw2 Pierre Desai, [facility] RN jb4 Corrections: (The following items were deleted from the chart) 10/22 07:02 06:39 PSHx: None; ao tw2 08:03 08:02 Hospitalization Ordered by Alexia Arellano MD for Inpatient Admission. Preliminary jr8 diagnosis is Non-ST elevation (NSTEMI) myocardial infarction; Acute respiratory failure with hypoxia. Bed requested for Telemetry/MedSurg (Inpatient). Status is Inpatient Admission. Condition is Stable. Problem is new. Symptoms have improved. UTI on Admission? No. jr8 09:03 08:03 10/22/2019 08:02 Hospitalization Ordered by A Adan AQUINO for Inpatient Admission. bd Preliminary diagnosis is Non-ST elevation (NSTEMI) myocardial infarction; Acute respiratory failure with hypoxia; Chronic kidney disease (CKD). Bed requested for Telemetry/MedSurg (Inpatient). Status is Inpatient Admission. Condition is Stable. Problem is new. Symptoms have improved. UTI on Admission? No. jr8 10:02 09:03 10/22/2019 08:02 Hospitalization Ordered by A Adan AQUINO for Inpatient Admission. tw2 Preliminary diagnosis is Non-ST elevation (NSTEMI) myocardial infarction; Acute respiratory failure with hypoxia; Chronic kidney disease (CKD). Bed requested for Telemetry/MedSurg (Inpatient). Status is Inpatient Admission. Condition is Stable. Problem is new. Symptoms have improved. UTI on Admission? No. bd
--- NOTE | 2019-10-22 08:07 | ER ---
Nurse's Notes [facility] Name: Tsering Osman Age: 79 yrs Sex: Female : 1940 Arrival Date: 10/22/2019 Time: 06:[address] Private MD: Diagnosis: Non-ST elevation (NSTEMI) myocardial infarction;Acute respiratory failure with hypoxia;Chronic kidney disease (CKD) Presentation: 10/22 06:36 Presenting complaint: Patient states: Pt C/O SOB and weakness since last night. Pt ao reports was to weak to get to get bed and felt down to sleep in her recliner. Pt called family this morning to get medical attention. Transition of care: patient was not received from another setting of care. Onset of symptoms was October 22, 2019 at 05:00. Risk Assessment: Do you want to hurt yourself or someone else? Patient reports no desire to harm self or others. Initial Sepsis Screen: Does the patient meet any 2 criteria? No. Patient's initial sepsis screen is negative. Does the patient have a suspected source of infection? No. Patient's initial sepsis screen is negative. Care prior to arrival: None. 06:36 Method Of Arrival: EMS: [facility] ao 06:36 Acuity: MANNIE 2 ao Historical: - Allergies: 06:39 NKA; ao - Home Meds: 07:02 aspirin 81 mg Oral chew 1 tab once daily [Active]; atorvastatin 20 mg Oral tab 1 tab tw2 nightly [Active]; Centrum Silver Oral daily [Active]; Coreg 6.25 mg Oral tab 1 tab 2 times per day [Active]; ferrous sulfate 325 mg (65 mg iron) Oral tab 2 tab daily [Active]; Flovent Inhl 100 mcg twice a day [Active]; furosemide 40 mg Oral tab 1 tab 2 times per day [Active]; glimepiride 4 mg Oral tab 1 tab twice a day [Active]; gabapentin 300 mg Oral cap 3 times per day [Active]; magnesium oxide 400 mg Oral tab 400 mg daily [Active]; Onglyza 5 mg Oral tab 1 tab once daily [Active]; Oxybutynin Chloride Oral 1 tab once daily [Active]; Plavix 75 mg Oral tab 1 tab once daily [Active]; trazodone 50 mg Oral tab nightly [Active]; Ventolin HFA 90 mcg/actuation Nebulizer HFAA 2 puffs Q4H prn [Active]; - PMHx: 06:39 CHF; Hyperlipidemia; Diabetes - NIDDM; Hypertension; ao - PSHx: 07:02 right knee sx; back sx; Heart stents; tw2 - Immunization history:: Adult Immunizations up to date. - Social history:: Smoking status: Patient uses tobacco products, denies chronic smoking, but will smoke occasionally. - Ebola Screening: : Patient negative for fever greater than or equal to 101.5 degrees Fahrenheit, and additional compatible Ebola Virus Disease symptoms Patient denies exposure to infectious person Patient denies travel to an Ebola-affected area in the 21 days before illness onset. Screenin:00 Abuse screen: Denies threats or abuse. Nutritional screening: No deficits noted. tw2 Tuberculosis screening: No symptoms or risk factors identified. Fall Risk Secondary diagnosis (15 points) impaired mobility. Assessment: 07:00 General: Appears in no apparent distress. obese, well groomed, Behavior is calm, tw2 cooperative, appropriate for age. Pain: Denies pain. Neuro: Level of Consciousness is awake, alert, obeys commands, Oriented to person, place, time, situation. Cardiovascular: Heart tones S1 S2 Patient's skin is warm and dry. Respiratory: Reports shortness of breath at rest on exertion Airway is patent Respiratory effort is even, unlabored, Respiratory pattern is regular, symmetrical, Breath sounds are clear bilaterally. Breath sounds are diminished bilaterally. GI: No signs and/or symptoms were reported involving the gastrointestinal system. Abdomen is round non-distended, obese, Bowel sounds present X 4 quads. : No signs and/or symptoms were reported regarding the genitourinary system. EENT: No signs and/or symptoms were reported regarding the EENT system. Derm: No signs and/or symptoms reported regarding the dermatologic system. Musculoskeletal: Range of motion: intact in all extremities. 07:45 Reassessment: Patient appears in no apparent distress at this time. Patient and/or tw2 family updated on plan of care and expected duration. Pain level reassessed. Patient is alert, oriented x 3, equal unlabored respirations, skin warm/dry/pink. 08:10 Reassessment: pt requesting olivarez at this time, states "i am just so weak i cannot get tw2 up, please can i have a olivarez", provider notified, no orders at this time, pt educated as to the risks and parameters of olivarez insertion and educated pt is not a candidate for olivarez at this time. peripads and care offered. 08:15 Reassessment: Dr. Paulino at bedside at this time. tw2 Vital Signs: 06:38 BP 132 / 72; Pulse 76; Resp 20; Pulse Ox 88% on R/A; Weight 113.4 kg (R); Height 5 ft. ao 4 in. (162.56 cm) (R); 07:44 BP 138 / 66; Pulse 76; Resp 20; Temp 97.9(TE); Pulse Ox 94% on 4 lpm NC; tw2 08:16 BP 134 / 92; Pulse 81; Resp 20; Pulse Ox 97% on 4 lpm NC; tw2 06:38 Body Mass Index 42.91 (113.40 kg, 162.56 cm) ao ED Course: 06:34 Patient arrived in ED. ds1 06:36 Bed in low position. Call light in reach. scientific software developer on. Pulse ox on. NIBP on. tw2 06:38 Triage completed. ao 06:39 Arm band placed on right wrist. Patient placed in an exam room, on a stretcher, Patient ao notified of wait time. 06:40 Ulysses Johnson PA is PHCP. jr8 06:40 Bob Benjamin MD is Attending Physician. jr8 07:00 Vicky Colin RN is Primary Nurse. tw2 07:05 Initial lab(s) drawn, by me, sent to lab. Maintain EMS IV. Dressing intact. Good blood jb4 return noted. Site clean \\T\\ dry. Gauge \\T\\ site: 20g Left forearm. 07:20 XRAY Chest (1 view) In Process Unspecified. EDMS 08:02 Alexia Arellano MD is Hospitalizing Provider. jr8 08:20 Straight cath inserted, using sterile technique, 18 Fr. Specimen obtained. Returned tw2 cloudy urine. Patient tolerated well. Mirna Domínguze served as visual merchandise manager. 08:51 Urine Microscopic Only Sent. tw2 10:00 No provider procedures requiring assistance completed. Patient admitted, IV remains in tw2 place. Administered Medications: 06:55 Drug: Albuterol 2.5 mg Route: Inhalation; jb4 08:36 Follow up: Response: No adverse reaction tw2 06:55 Drug: Albuterol 2.5 mg Route: Inhalation; tw2 06:55 Drug: Albuterol 2.5 mg Route: Inhalation; tw2 08:05 Drug: Lasix 60 mg Route: IVP; Site: left forearm; tw2 08:37 Follow up: Response: No adverse reaction tw2 08:05 Drug: Aspirin Chewable Tablet 324 mg Route: PO; tw2 08:36 Follow up: Response: No adverse reaction tw2 08:05 Drug: Lovenox 1 mg/kg Route: Sub-Q; Site: right lower abdomen; tw2 08:36 Follow up: Response: No adverse reaction tw2 Outcome: 08:02 Decision to Hospitalize by Provider. jr8 10:00 Admitted to Med/surg accompanied by nurse, via stretcher, room 206, with oxygen, with tw2 chart, Report called to [facility] Ascencio 10:00 Condition: stable 10:00 Instructed on the need for admit. 10:02 Patient left the ED. tw2 Signatures: Dispatcher [facility] [place] Dan ds1 Ulysses Johnson PA PA jr8 Jewel Reyes, RN RN Vicky Zepeda RN RN tw2 Pierre Desai, RN RN jb4 Corrections: (The following items were deleted from the chart) 07:02 06:39 PSHx: None; ao tw2 08:17 08:15 Reassessment: pt requesting olivarez at this time, states "i am just so weak i tw2 cannot get up, please can i have a olivarez", provider notified, no orders at this time, pt educated as to the risks and parameters of olivarez insertion and educated pt is not a candidate for olivarez at this time. peripads and care offered. tw2
--- NOTE | 2019-10-22 09:01 | RAD REPORT ---
EXAM DESCRIPTION: [facility] Single View10/22/2019 7:30 am CLINICAL HISTORY: Shortness of breath COMPARISON: 2016 FINDINGS: The [place] are blurred. . The heart is borderline enlarged Mild prominence of mediastinum IMPRESSION: [place] are blurred which may indicate minimal interstitial pulmonary edema Mild prominence mediastinum. PA and lateral chest series is recommended for further evaluation
[2019-10-22 09:43] LABS: Urine Specific Gravity 1.025 (1.005-1.030)
[2019-10-22 09:44] LABS: Urine Blood TRACE (NEG); Urine Glucose NEGATIVE (NEG); Urine Protein 3+ (NEG)
[2019-10-22 09:46] LABS: Urine Bacteria >50 /HPF (<20); Urine Culture Reflex Order REFLEXED
[2019-10-22 09:47] LABS: Urine Mucus SLIGHT /HPF (NONE SEEN)
[2019-10-22] MEDS ORDERED: ALBUTEROL 2.5 MG/3 ML NEB SOL NEB PRN (10:11)
[2019-10-22] MEDS ORDERED: D50W 25 GM/50 ML SYRINGE/VIAL IV PRN (10:11)
[2019-10-22] MEDS ORDERED: ONDANSETRON 4 MG/2 ML VIAL IV PRN (10:11)
[2019-10-22] MEDS ORDERED: GLUCAGON 1 MG/VIAL IM PRN (10:11)
[2019-10-22] MEDS ORDERED: IPRATROPIUM BROM 0.5MG/2.5ML NEB PRN (10:11)
[2019-10-22 10:20] VITALS: BMI 33.6
--- NOTE | 2019-10-22 10:27 | RAD REPORT ---
EXAM DESCRIPTION: RAD - Chest Pa And Lat (2 Views) - 10/22/2019 9:36 am CLINICAL HISTORY: abnormal 1 view Chest pain. COMPARISON: Chest Single View dated 10/22/2019; Chest Single View dated 09/26/2016; Chest Single View dated 09/23/2016; Chest Single View dated 09/22/2016 FINDINGS: Moderate bilateral interstitial lung opacities are present. This may represent interstitia l pneumonitis or interstitial pulmonary edema. The heart is upper limit of normal in size. No displac ed fractures.
[2019-10-22] MEDS ORDERED: FUROSEMIDE 40 MG/4 ML VIAL IV ONE (11:25)
[2019-10-22] MEDS: INSULIN -REGULAR HUMAN 50 UNIT/0.5 ML ML SQ SCH ×3 (11:30→21:00)
--- NOTE | 2019-10-22 12:04 | EKG ---
Test Date: 2019-10-22 Test Time: 06:45:16 Business Consult: [place] MEASUREMENT RESULTS: Intervals: Rate: 74 MO: 218 QRSD: 84 QT: 458 QTc: 508 [place]: P: 88 MO: 218 QRS: 43 T: 78 INTERPRETIVE STATEMENTS: Sinus rhythm with 1st degree AV block Anterior infarct, age undetermined Abnormal ECG Compared to ECG 09/23/2016 06:14:11 First degree AV block now present Myocardial infarct finding still present Electronically Signed On 10-22-19 12:03:25 FLAG DECORATOR by Dariel Paulino
[2019-10-22] MEDS: CEFTRIAXONE/SWI 1gm 1 GM/10 ML SYR IV SCH ×2 (12:08→20:42)
--- NOTE | 2019-10-22 13:23 | ECHO ---
HEIGHT: 5 ft 7 in WEIGHT: 215 lb 0 oz DATE OF STUDY: 10/22/[address]: Maurizio Johnson 2-DIMENSIONAL: YES M.MODE: YES DOPPLER: YES COLOR FLOW: YES TDS: YES PORTABLE: NO DEFINITY: NO BUBBLE STUDY: NO DIAGNOSIS: SHORTNESS OF BREATH CARDIAC HISTORY: CATHERIZATION: NO SURGERY: NO PROSTHETIC VALVE: NO PACEMAKER: NO MEASUREMENTS (cm) DIASTOLIC (NORMALS) SYSTOLIC (NORMALS) IVSd 1.2 (0.6-1.2) LA Diam 3.9 (1.9-4.0) LVEF 69% LVIDd 3.5 (3.5-5.7) LVIDs 2.2 (2.0-3.5) %FS 38% LVPWd 1.6 (0.6-1.2) Ao Diam 2.5 (2.0-3.7) 2 DIMENSIONAL ASSESSMENT: RIGHT ATRIUM: NORMAL LEFT ATRIUM: NORMAL RIGHT VENTRICLE: NORMAL LEFT VENTRICLE: LEFT VENTRICULAR HYPERTROPHY TRICUSPID VALVE: NORMAL MITRAL VALVE: NORMAL PULMONIC VALVE: NORMAL AORTIC VALVE: NORMAL PERICARDIAL EFFUSION: NONE AORTIC ROOT: NORMAL LEFT VENTRICULAR WALL MOTION: NORMAL EJECTION FRACTION. DOPPLER/COLOR FLOW: MILD TRICUSPID REGURGITATION. COMMENTS: DECREASED LEFT VENTRICULAR COMPLIANCE. NORMAL LEFT VENTRICULAR EJECTION FRACTION. LEFT VENTRICULAR HYPERTROPHY. NO EFFUSION. TECHNOLOGIST: OPLLO MERCADO
[2019-10-22] MEDS: ALBUTEROL 2.5 MG/3 ML NEB SOL NEB PRN ×2 (13:55→17:40)
[2019-10-22] MEDS: IPRATROPIUM BROM 0.5MG/2.5ML NEB PRN ×2 (13:55→17:40)
[2019-10-22] MEDS ORDERED: INFLUENZA VACCINE (for 3y+) 0.5 ML DOSE IMVAC ONE (14:00)
[2019-10-22] MEDS ORDERED: PNEUMOCOCCAL VACCINE 0.5 ML IMVAC ONE (14:00)
[2019-10-22] MEDS ORDERED: FUROSEMIDE 20 MG/ 2ML VIAL IV SCH (17:00)
--- NOTE | 2019-10-22 17:06 | CON ---
Date of Consultation: 10/22/2019 Reason For Consultation: Shortness of breath and elevated troponin. History Of Present Illness: Ms. Osman is an 79-year-old white woman. She is a patient of Dr. Juli Abdul, my partner. She has had a history of coronary artery disease status post stent in 2015, n egative stress test in 2016, ejection fraction 75% in 2016. She is a do not resuscitate, came in wit h nonspecific symptoms mostly weakness and fatigue for the last 2 to 3 weeks with some shortness of b reath. Denied chest pain, nausea, vomiting, diaphoresis, PND, orthopnea, palpitations, or syncope. Has had some pedal edema. Her EKG was nonspecific. Her troponin was 1.21. BNP was 5816. She was f ound to have a UTI. Allergies: NONE. Review of Systems: Negative. Social History: Negative. Family History: Noncontributory. Medications: Include Coreg, Januvia, Amaryl, Onglyza, losartan, Lasix, inhalers, aspirin, Plavix, an d Lipitor. Physical Examination: General: Ms. Osman was in no acute distress when I saw her. Vital Signs: Stable. O2 saturation was 88% on room air, 93% on 2 L. She was in sinus rhythm. No a cute distress. HEENT: Negative. Neck: Supple with no bruit. Chest: Reveals some rales both bases. Cardiac: Revealed a regular rhythm and rate with an S4 gallops. No murmurs or rubs. Abdomen: Obese, but benign. Extremities: Revealed 1+ edema. Skin: Dry and intact. Neurologic: She was nonfocal. Pulses were present distally bilaterally. Diagnostic Data: As stated earlier. Impression And Plan: 1.Elevated troponin with symptoms of weakness, shortness of breath, and pedal edema. We may be deal ing more with an acute on chronic diastolic congestive heart failure. 2.Urinary tract infection. 3.Renal insufficiency. 4.Elevated troponin secondary to congestive heart failure. 5.Diabetes. 6.Dyslipidemia. Patient takes Coreg, Januvia, Amaryl, Allyson, losartan, Lasix, inhalers, aspirin, Plavix, and Lipito r at home we told her to need to continue those. We could probably increase her dose of Coreg, incre ase her dose of Lasix, treat her UTI. Echocardiogram is pending. We should probably do an outpatien t stress test sometime down the road. No plan for catheterization at this point. Case was discussed with Dr. Arellano. NEELA/BRAULIO Voice ID: [id number] Report ID: [id number]
[2019-10-22] MEDS: FUROSEMIDE 40 MG/4 ML VIAL IV SCH (17:30)
[2019-10-22] MEDS ORDERED: CEFTRIAXONE 1 GM/NS 50 ML 1 GM/50 ML BAG IV SCH (21:00)
[2019-10-22] MEDS: ARFORMOTEROL TARTRATE 15 MCG/2 ML VIAL.NEB NEB SCH (21:15)
[2019-10-22] MEDS ORDERED: FORMOTEROL FUMARATE 20 MCG/2 ML VIAL.NEB ONE (21:32)
[2019-10-22] MEDS: GABAPENTIN 300 MG CAP PO SCH (23:32)
[2019-10-22] MEDS: TRAZODONE 50 MG TABLET PO SCH (23:32)
[2019-10-23] MEDS: ALBUTEROL 2.5 MG/3 ML NEB SOL NEB PRN ×2 (05:33→11:37)
[2019-10-23] MEDS: IPRATROPIUM BROM 0.5MG/2.5ML NEB PRN ×4 (05:33→20:20)
[2019-10-23 05:45] LABS: Absolute Lymphocytes (CBC) 1.5 K/uL (0.7-4.9); Basophils % 0.8 % (0-1.3); Hematocrit 32.3 % (36.0-45.0); Lymphocytes % 16.2 % (15.3-44.8); MPV 8.2 fL (7.6-11.3)
[2019-10-23] MEDS ORDERED: ENOXAPARIN 100 MG/ML SYR SQ SCH (06:00)
[2019-10-23 07:23] LABS: Potassium 3.9 mmol/L (3.5-5.1)
[2019-10-23] MEDS: INSULIN -REGULAR HUMAN 50 UNIT/0.5 ML ML SQ SCH ×4 (07:30→20:29)
[2019-10-23] MEDS ORDERED: ALBUTEROL INHALER 60 PUFF/8 GM IH PRN (07:42)
[2019-10-23] MEDS: ARFORMOTEROL TARTRATE 15 MCG/2 ML VIAL.NEB NEB SCH ×2 (07:59→20:20)
[2019-10-23] MEDS: CEFTRIAXONE/SWI 1gm 1 GM/10 ML SYR IV SCH ×2 (08:25→20:15)
[2019-10-23] MEDS: ASPIRIN 81 MG CHEWABLE TABLET PO SCH (08:25)
[2019-10-23] MEDS: FUROSEMIDE 40 MG/4 ML VIAL IV SCH ×2 (08:25→17:05)
[2019-10-23] MEDS: GABAPENTIN 300 MG CAP PO SCH ×3 (08:25→20:14)
[2019-10-23] MEDS: carvediloL 6.25 MG TAB PO SCH ×2 (08:39→20:14)
[2019-10-23] MEDS: MAGNESIUM OXIDE 400 MG TAB PO SCH (08:39)
[2019-10-23] MEDS: OXYBUTYNIN CHLORIDE 5 MG TAB PO SCH (08:39)
[2019-10-23] MEDS: LOSARTAN POTASSIUM 50 MG TABLET PO SCH (08:40)
[2019-10-23] MEDS: CIPROFLOXACIN HCL 250 MG TAB PO SCH ×2 (08:40→20:14)
[2019-10-23] MEDS: FLUTICASONE PROPIONATE 100 MCG IH SCH ×2 (09:00→20:28)
[2019-10-23] MEDS ORDERED: FLUOXETINE 20 MG CAP PO ONE (10:40)
[2019-10-23] MEDS: FERROUS SULFATE 325 MG TAB PO SCH (10:45)
[2019-10-23] MEDS: CLOPIDOGREL 75 MG TABLET PO SCH (10:45)
--- NOTE | 2019-10-23 13:53 | PN ---
History Of Present Illness: Mrs. Osman is 79. She came to the hospital with dyspnea, some tightn ess in the chest. She notes this happens to her a lot. She has had abnormal cardiac enzymes and EKG s that show sinus rhythm, first-degree AV block, old anterior infarct. The patient has a history of a stent being placed in her heart. It was in 2013. It was a stent in the circumflex. Mrs. Osman is [id number]-kukdsownnjp. She never wants to be put on a ventilator in an ICU, but she does want to do anything that might help her breathe better and feel better and is willing to undergo a cardiac cath . Medications: Outpatient medications have been Flovent, trazodone, Ditropan, Plavix, glimepiride, lavon apentin, furosemide, iron sulfate, Coreg, atorvastatin, aspirin, Ventolin, magnesium oxide, saxaglipt in, losartan, fluoxetine, multivitamin, and sitagliptin. Physical Examination: General: She is alert, oriented, pleasant, obese, not in distress. 5 feet 7 inches, 215 pounds. HEENT: Normal. Lungs: Clear. Cardiac: Within normal limits. Carotids, no bruit. Extremities: Mild edema. Distal pulses palpable. Laboratory Data: Her troponins are as high as 1.88. Her creatinine is 1.64, GFR 30. Impression: Mrs. Osman would probably benefit from a cardiac cath and another stent. There are r isks to be addressed including kidney injury. We will give medicines to prevent kidney injury, Mucom yst and gentle IV hydration, and I will recommend we try to do a cardiac cath tomorrow. The patient seems to understand the procedure, potential benefits, indications, risks, and agrees to proceed. BETO/BRAULIO Voice ID: [id number] Report ID: [id number]
--- NOTE | 2019-10-23 13:53 | PN ---
Date of Progress Note: 10/23/2019 Subjective: Patient was seen this morning for followup. She was feeling better this morning compare d to yesterday. Yesterday evening, she had lot of trouble with shortness of breath. Nebulizer treat ment was given and then we also added Brovana and eventually she improved. This morning, she is feel ing better, looking better. Denies any other complaints. No chest pain. Objective: Vital Signs: Reviewed. HEENT: Unremarkable. Lungs: Clear to auscultation except diminished air entry with some rales in lower lung eckert. Not using accessory muscles of respiration. Heart: Sounds normal. Abdomen: Soft. Bowel sounds normal. No guarding, rigidity, tenderness, or distention. Extremities: Bilateral leg edema present, but better today than yesterday. Laboratory Data: Sodium 139, potassium 3.9, chloride 104, bicarb 29, BUN 30, creatinine 1.64, glucos e 75. ProBNP 21,686. White count 9, hemoglobin 10.9, platelets 208. Impression: 1.Pulmonary edema. 2.Congestive heart failure, chronic, systolic, with acute exacerbation. 3.Coronary artery disease. 4.Diabetes mellitus. 5.Hypertension. 6.Urinary tract infection. 7.Chronic kidney disease, stage 3. 8.Anemia due to chronic kidney disease. Plan: We will continue current IV Rocephin and IV Lasix. Monitor intake and output records. Ambula tion was encouraged. Reduce dose of Lovenox to prophylactic dose per order. Cardiac enzymes reviewe d and we will continue to follow with tilt tray driver. I have added Cipro 250 mg twice a day considerin g patient having low-grade fever. This morning, her temperature is 100 degrees Fahrenheit. Urine cu lture pending. I will see her tomorrow for followup. JAVY/MODL Voice ID: [id number] Report ID: [id number]
[2019-10-23] MEDS ORDERED: POTASSIUM CL SA 10 MEQ TAB PO ONE (15:28)
--- NOTE | 2019-10-23 19:19 | HP ---
Date of Admission: 10/22/2019 Chief Complaint: Shortness of breath and feeling weak. History Of Present Illness: This is an 79-year-old female patient who lives at home, has been having some shortness of breath for the last few days and today she came into emergency room because of weakness. When the patient's daughter talked to her on the phone, the patient was not making any sense, appeared very weak and daughter was concerned about how the patient was sounding on the phone , so she made arrangements for patient to come to emergency room. Patient was sitting in her chair for almost 12 hours and says that she was so weak that she could not get up. Denies any fall or injury. After she was evaluated in the ER , she was admitted to the hospital. Denies any chest pain. No fever, chills, nausea, vomiting. Medications List: Reviewed. Allergies: NO KNOWN ALLERGIES. Review of Systems: Constitutional: As mentioned above. Respiratory: As mentioned above. Cardiovascular: As mentioned above. Extremities: Has bilateral leg edema. All other systems reviewed and negative. 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 Past Surgical History: Hysterectomy, back surgery in 2013, coronary artery angioplasty with stent placement in 2013. Family History: Significant for heart disease, lung cancer. Social History: Negative for smoking and alcohol abuse. Physical Examination: Vital Signs: Temperature 97.9, pulse 81, respiratory rate 20, blood pressure 134/92, oxygen saturation 97%. Height 5 feet 7 inches. General: Awake, alert, oriented, not in distress. HEENT: Head atraumatic, normocephalic. Conjunctivae nonerythematous. Sclerae white. Mouth, no thrush or edema noted. Ears/Nose, no mass, lesion, discharge noted. Neck: Supple. No JVD, lymph nodes, bruit, thyromegaly noted. Lungs: Diminished air entry with some crackles in the lower lung eckert. Heart: Normal heart sounds, no murmur or gallop. Abdomen: Soft, bowel sounds normal. No guarding, rigidity, tenderness, mass, hepatosplenomegaly, distention, or bruit noted. Extremities: Bilateral grade 2 pedal edema and there is some edema of upper extremity and edema of her face. Skin: No rash, ulcer, cellulitis. Lymphatics: No lymph node enlargement in neck, supraclavicular, infraclavicular region. Neuro: No focal neurological deficit. Chest: Unremarkable. External Genitalia: Deferred. Rectal: Deferred. Laboratory Data: Echocardiogram done today shows ejection fraction 69%, left ventricular hypertrophy with reduced left ventricular compliance. No pericardial effusion. Chest x-ray shows changes of pulmonary edema. EKG; sinus rhythm, first-degree AV block, anterior infarct, age undetermined. White count 7.1, hemoglobin 11.5. Sodium 139, potassium 4.6, chloride 104, bicarb 29 , BUN 34, creatinine 1.61, glucose 119. Liver function tests unremarkable. Troponin 1.21. ProBNP 5860. Urinalysis; trace esterase, wbc more than 50, bacteria more than 50. Impression: 1. Pulmonary edema. 2. Congestive heart failure, chronic, systolic, with acute exacerbation. 3. Coronary artery disease. 4. Chronic kidney disease, stage 3. 5. Hypertension. 6. Type 2 diabetes mellitus. 7. Osteoarthritis, multiple sites. 8. Hyperlipidemia. 9. Peripheral neuropathy. 10. Asthma. 11. Depression. 12. Urinary tract infection. Plan: Admit patient to hospital for further evaluation and management of this problem. The patient is appropriate for inpatient and is expected to spend 2 midnights in the hospital. We will go ahead and continue home medications per order. She received 60 mg of Lasix in the emergency room. I will give her 40 mg of Lasix twice a day per order. Monitor intake, output, daily weight. Nebulizer treatment will be given per order. Details were discussed with Dr. Paulino regarding abnormal cardiac enzymes. Patient has no chest pain at all and Dr. Paulino has suggested at this point conservative treatment. She already received 1 dose of Lovenox in the emergency room. Echocardiogram shows normal ejection fraction at this point and Dr. Paulino will consider elective stress test on an outpatient basis for her. Her last cardiac cath was about 4 to 5 years ago. I did talk to her in presence of her daughter about all these details including advanced directives and the patient does not want any heroic measures like CPR, defibrillation, ventilator support, etc. DNR order was written in the chart and she was advised to get out of hospital DNR paperwork ready as per her decision and we will have social service to help her with that. Consult physical therapy to help ambulate. We will repeat blood work tomorrow morning. We will start IV antibiotics per order for urinary tract infection and follow up on culture results. JAVY/BRAULIO Voice ID: [id number]
[2019-10-23] MEDS: ATORVASTATIN 20 MG TAB PO SCH (20:14)
[2019-10-23] MEDS: ACETYLCYST 20% 800 MG/4 ML VIAL PO SCH (20:15)
[2019-10-23] MEDS: TRAZODONE 50 MG TABLET PO SCH (20:15)
[2019-10-24 05:40] LABS: Absolute Lymphocytes (CBC) 1.5 K/uL (0.7-4.9); Basophils % 1.1 % (0-1.3); Hematocrit 30.9 % (36.0-45.0); Lymphocytes % 28.1 % (15.3-44.8); MPV 8.1 fL (7.6-11.3); RBC Red Blood Cell Count 3.36 M/uL (3.86-4.86)
[2019-10-24 05:58] LABS: Magnesium 2.4 mg/dL (1.8-2.4); Potassium 3.8 mmol/L (3.5-5.1)
[2019-10-24] MEDS ORDERED: HEPA 1000U/500MLS 2,000 UNIT/1,000 ML BAG IV ONE (06:58)
[2019-10-24] MEDS ORDERED: LIDOCAINE 1% 20 ML MDV ONE (06:58)
[2019-10-24] MEDS: INSULIN -REGULAR HUMAN 50 UNIT/0.5 ML ML SQ SCH ×4 (07:30→21:37)
[2019-10-24] MEDS: ARFORMOTEROL TARTRATE 15 MCG/2 ML VIAL.NEB NEB SCH ×2 (07:51→20:00)
[2019-10-24] MEDS: CEFTRIAXONE/SWI 1gm 1 GM/10 ML SYR IV SCH ×2 (08:23→21:33)
[2019-10-24] MEDS: ASPIRIN 81 MG CHEWABLE TABLET PO SCH (08:23)
[2019-10-24] MEDS: GABAPENTIN 300 MG CAP PO SCH ×3 (08:24→21:39)
[2019-10-24] MEDS: CIPROFLOXACIN HCL 250 MG TAB PO SCH ×2 (08:24→21:39)
[2019-10-24] MEDS: carvediloL 6.25 MG TAB PO SCH ×2 (08:25→21:39)
[2019-10-24] MEDS: FUROSEMIDE 40 MG/4 ML VIAL IV SCH ×2 (08:25→16:24)
[2019-10-24] MEDS: LOSARTAN POTASSIUM 50 MG TABLET PO SCH (08:25)
[2019-10-24] MEDS: CLOPIDOGREL 75 MG TABLET PO SCH (08:25)
[2019-10-24] MEDS: ACETYLCYST 20% 800 MG/4 ML VIAL PO SCH ×2 (08:27→21:46)
[2019-10-24] MEDS ORDERED: PNEUMOCOCCAL VACCINE 0.5 ML IMVAC ONE ×2 (09:00→15:00)
[2019-10-24] MEDS: FLUTICASONE PROPIONATE 100 MCG IH SCH ×2 (09:00→21:00)
[2019-10-24] MEDS ORDERED: INFLUENZA VACCINE (for 3y+) 0.5 ML DOSE IMVAC ONE ×2 (09:00→15:00)
[2019-10-24] MEDS ORDERED: ENOXAPARIN 30 MG/0.3 ML SQ SCH (09:00)
[2019-10-24] MEDS ORDERED: POTASSIUM CL SA 10 MEQ TAB PO ONE (09:00)
[2019-10-24] MEDS: MAGNESIUM OXIDE 400 MG TAB PO SCH ×2 (09:00→14:04)
[2019-10-24] MEDS: FLUOXETINE 20 MG CAP PO SCH ×2 (09:00→14:03)
[2019-10-24] MEDS: FERROUS SULFATE 325 MG TAB PO SCH ×2 (09:00→14:04)
[2019-10-24] MEDS: OXYBUTYNIN CHLORIDE 5 MG TAB PO SCH ×2 (09:00→14:04)
[2019-10-24] MEDS ORDERED: NA CHLORIDE 0.9% 500 ML ONE (10:11)
[2019-10-24] MEDS ORDERED: HEPARIN 5000 UNIT/ML 1 ML VIAL ONE (10:11)
[2019-10-24] MEDS ORDERED: MIDAZOLAM HCL 2 MG/2 ML INJ ONE (10:11)
[2019-10-24] MEDS ORDERED: NICARDIPINE HCL 25 MG/10 ML IV ONE (10:12)
[2019-10-24] MEDS ORDERED: NITROGLYCERIN 100 MCG/ML SYR (for cath lab use only) IV ONE (10:12)
[2019-10-24] MEDS ORDERED: NITROGLYCERIN/D5W 25 MG/250 ML BTL IV ONE (10:12)
[2019-10-24] MEDS ORDERED: NA CHLORIDE 0.9% 0 ML IV ONE (10:12)
[2019-10-24] MEDS ORDERED: FENTANYL CITR 100 MCG/2 ML ONE (10:12)
[2019-10-24] MEDS ORDERED: ATROPINE SULF 1 MG/10 ML SYR IV ONE (10:12)
[2019-10-24] MEDS ORDERED: FLUMAZENIL 0.1 MG/ML (5 mL VIAL) IV ONE (10:25)
--- NOTE | 2019-10-24 11:53 | OP ---
Surgeon: Brian Abdul MD Veterinarian Small Animal: Daphnie Hansen. Identification: 79-year-old woman. Procedure: Left heart catheterization and coronary angiography. No intervention was done. Procedure Findings: The patient's right coronary artery, left main, proximal mid, LAD are all perfec tly normal. The distal LAD has a 90% stenosis at the apex where it becomes a 0.5 mm vessel. The cir cumflex is totally occluded just after an obtuse marginal branch. The obtuse marginal branch itself has a 50% stenosis, which may be mostly a myocardial bridge. No LV-gram was done. Left ventricular end-diastolic pressure was 16. She has mild systolic hypertension, systolic from 40s and there was n o gradient across the valve, so no evidence of aortic stenosis. Procedure In Detail: The patient was brought to the cardiac pathology laboratory technologist in a fasting state, sedated wit h Versed and fentanyl, prepared and draped in usual sterile fashion. Right radial approach was used. 1% lidocaine was used to anesthetize the tissues over the right radial artery. The artery was ente red using a 21-gauge needle, cannulated with a 0.021 inch diameter guidewire and a 6-Setswana CHROMAom ra dial sheath was placed. It was flushed and a radial cocktail was given consisting of nicardipine, he darrian, nitroglycerin. We guided a TIG catheter into the ascending aorta using fluoroscopy and a [employer] Glidewire with a short radius J-tip. We angiogramed right coronary, left coronary and measured pr essures in the left ventricle all using the same TIG catheter. No LV-gram was done in order to reduc e the contrast load due to renal insufficiency. Total IV contrast used during the case 58 cc. At th e end of the procedure, the catheter was withdrawn over a guidewire. The sheath was removed and the arteriotomy closed with a TR band, large. Complications from the procedure none. Estimated Blood Loss: 5 cc. BETO/BRAULIO Voice ID: [id number] Report ID: [id number]
--- NOTE | 2019-10-24 14:42 | PN ---
Date of Progress Note: 10/24/2019 Subjective: Patient was seen this morning for followup. She was lying in bed. Her daughter was wit h her at bedside. Denies any chest pain, shortness of breath. Objective: VITAL SIGNS: Reviewed. HEENT: Unremarkable. LUNGS: Clear to auscultation. No wheezing. No crackles. HEART: Sounds normal. ABDOMEN: Soft. Bowel sounds normal. No guarding, rigidity, tenderness, or distention. EXTREMITIES: Trace leg edema. Overall, better than before. Laboratory Data: White count 5.5, hemoglobin 10.1, platelets 182. Sodium 141, potassium 3.8, chlori de 104, bicarb 32, BUN 37, creatinine 1.99, glucose 175. Magnesium 2.4. Urine culture grew E coli. Impression: 1.Pulmonary edema, resolved. 2.Urinary tract infection. 3.Chronic kidney disease, stage 3. 4.Coronary artery disease. 5.Hypertension. 6.Diabetes mellitus. 7.Anemia due to chronic kidney disease. Plan: We will continue current medications. Dr. Abdul saw her from Cardiology yesterday and her sc heduled cardiac cath will be done today. Depending on cardiac cath findings, further cardiac intervention will be decided. I will see her tomorrow for followup. We will repeat blood work tomor row. Continue current antibiotics. JAVY/MODL Voice ID: [id number] Report ID: [id number]
[2019-10-24] MEDS: IPRATROPIUM BROM 0.5MG/2.5ML NEB PRN (19:52)
[2019-10-24] MEDS: TRAZODONE 50 MG TABLET PO SCH (21:39)
[2019-10-24] MEDS: ATORVASTATIN 20 MG TAB PO SCH (21:39)
[2019-10-25 05:25] LABS: Absolute Lymphocytes (CBC) 1.3 K/uL (0.7-4.9); Basophils % 1.1 % (0-1.3); Hematocrit 31.3 % (36.0-45.0); Lymphocytes % 21.3 % (15.3-44.8); MPV 8.1 fL (7.6-11.3); RBC Red Blood Cell Count 3.41 M/uL (3.86-4.86)
[2019-10-25 05:45] LABS: Magnesium 2.3 mg/dL (1.8-2.4); Potassium 4.1 mmol/L (3.5-5.1)
[2019-10-25] MEDS: ARFORMOTEROL TARTRATE 15 MCG/2 ML VIAL.NEB NEB SCH (07:50)
[2019-10-25] MEDS: IPRATROPIUM BROM 0.5MG/2.5ML NEB PRN (07:50)
[2019-10-25] MEDS: ALBUTEROL 2.5 MG/3 ML NEB SOL NEB PRN (07:50)
[2019-10-25] MEDS: FLUOXETINE 20 MG CAP PO SCH (08:44)
[2019-10-25] MEDS: OXYBUTYNIN CHLORIDE 5 MG TAB PO SCH (08:44)
[2019-10-25] MEDS: MAGNESIUM OXIDE 400 MG TAB PO SCH (08:44)
[2019-10-25] MEDS: CEFTRIAXONE/SWI 1gm 1 GM/10 ML SYR IV SCH (08:44)
[2019-10-25] MEDS: CLOPIDOGREL 75 MG TABLET PO SCH (08:44)
[2019-10-25] MEDS: carvediloL 6.25 MG TAB PO SCH (08:44)
[2019-10-25] MEDS: GABAPENTIN 300 MG CAP PO SCH (08:45)
[2019-10-25] MEDS: LOSARTAN POTASSIUM 50 MG TABLET PO SCH (08:45)
[2019-10-25] MEDS: FUROSEMIDE 40 MG/4 ML VIAL IV SCH (08:45)
[2019-10-25] MEDS: ASPIRIN 81 MG CHEWABLE TABLET PO SCH (08:45)
[2019-10-25] MEDS: CIPROFLOXACIN HCL 250 MG TAB PO SCH (08:46)
[2019-10-25] MEDS: FERROUS SULFATE 325 MG TAB PO SCH (08:46)
[2019-10-25] MEDS: FLUTICASONE PROPIONATE 100 MCG IH SCH (08:58)
[2019-10-25 09:00] VITALS: O2SAT 93
[2019-10-25] MEDS: INSULIN -REGULAR HUMAN 50 UNIT/0.5 ML ML SQ SCH ×2 (09:55→11:30)
[2019-10-25] MEDS: ACETYLCYST 20% 800 MG/4 ML VIAL PO SCH (09:56)
[2019-10-25 15:04] VITALS: BP 109/56; TEMP 98.2
--- NOTE | 2019-10-26 00:22 | DS ---
Date of Discharge: 10/25/2019 Disposition: Discharged to go home. Physical Examination: HEENT: Unremarkable. Lungs: Clear to auscultation. Heart: Heart sounds normal. Abdomen: Soft, bowel sounds normal. No guarding, rigidity, tenderness, or distention. Extremities: No leg edema. Laboratory Data: Labs done during this hospitalization. Initial white count 7.9, hemoglobin 11.5 pl atelets 210 on 10/22/2019. Today, white count 6.2, hemoglobin 10.4, platelets 192. Today chemistry, sodium 143, potassium 4.1, chloride 105, bicarb 31, BUN 40, creatinine 1.83, glucose 172, magnesium 2.3. Hospital Course: An 79-year-old female patient who was admitted to the hospital with complaints of s hortness of breath and feeling weak. Please see dictated H and P for more information. The patient was evaluated in the emergency room, admitted to the hospital with pulmonary edema and acute exacerba tion of chronic diastolic congestive heart failure. Cardiac enzymes, troponin was slightly elevated 1.21 and highest level was around 1.6. Cardiology consultation was obtained from Dr. Paulino. Dr. Quinn gonzalez was thinking about doing outpatient cardiac stress test, but then Dr. Abdul saw her day after that for followup and he recommended cardiac cath and he performed this cardiac cath procedure yeste rday and the patient has coronary artery disease as he has documented in the findings, but no interve ntion was done yesterday. After the procedure, the patient has remained stable. Throughout this hos pitalization, since the admission, we started giving her IV diuretic therapy and her condition actual ly improved very well. Both pulmonary edema and congestive heart failure problem improved. Shortnes s of breath and feeling weak complaints that she had has improved. The patient is medically stable f or discharge. Her urinalysis was abnormal consistent with urinary tract infection. Urine culture gr ew E coli. It is sensitive to all different antibiotics and the patient was started on oral Cipro 2- 3 days ago. Upon discharge, we will continue 5 more days of oral antibiotics. Final Diagnoses: 1.Congestive heart failure, chronic, systolic, with acute exacerbation. 2.Pulmonary edema. 3.Urinary tract infection. 4.Coronary artery disease. 5.Chronic kidney disease, stage 3. 6.Hypertension. 7.Type 2 diabetes mellitus. 8.Osteoarthritis, multiple sites. 9.Peripheral neuropathy. 10.Asthma. 11.Depression. Discharge Medications And Instructions: 1.Continue all prior home medications. 2.Take Cipro 250 mg 2 times a day for 5 days. 3.Follow up at my office during week of 11/03/2019. JAVY/BRAULIO Voice ID: [id number] Report ID: [id number]
== END 2019-10-25 13:05 | disposition home or self-care (01) | DRG 286 ==
LOC: ER 06:32 → ERHOLD 08:46 → 2ND 09:32
PROVIDERS: ADMIT Internal Medicine; ATTEND Internal Medicine
PROC: 4A023N7 Measurement of Cardiac Sampling and Pressure, Left Heart, Percutaneous Approach (ICD-10-PCS; principal; 2019-10-24)
PROC: B215YZZ Fluoroscopy of Left Heart using Other Contrast (ICD-10-PCS; 2019-10-24)
DX: I13.0 Hypertensive heart and chronic kidney disease with heart failure and stage 1 through stage 4 chronic kidney disease, or unspecified chronic kidney disease (principal); I50.23 Acute on chronic systolic (congestive) heart failure; N39.0 Urinary tract infection, site not specified; N18.3 Chronic kidney disease, stage 3 (moderate); E11.22 Type 2 diabetes mellitus with diabetic chronic kidney disease; I25.10 Atherosclerotic heart disease of native coronary artery without angina pectoris; M19.90 Unspecified osteoarthritis, unspecified site; E78.5 Hyperlipidemia, unspecified; E11.42 Type 2 diabetes mellitus with diabetic polyneuropathy; J45.909 Unspecified asthma, uncomplicated; F32.9 Major depressive disorder, single episode, unspecified; D63.1 Anemia in chronic kidney disease; I44.0 Atrioventricular block, first degree; Z79.4 Long term (current) use of insulin
CPT/HCPCS: 36415; 51702; 71045; 71046; 80048; 80076; 81003; 81015; 82947; 83735; 83880; 84484; 85025; 85610; 87077; 87086; 87088; 87186; 93005; 93306; 93458; 94640; 96372; 96374; 97116; 97161; 97530; 99285; C1893; J0583; J0696; J1644; J1650; J1940; J2250; J3010; J7040; J7605

== ENCOUNTER 2019-11-29 14:24 | Inpatient (IN) | payer OTHER, MEDICARE ==
[2019-11-29] MEDS: PIPER/TAZO/NS 3.375gm 3.375 GM/100 ML BAG IVPB SCH ×4 (01:00→18:00)
--- NOTE | 2019-11-29 16:46 | RAD REPORT ---
EXAM DESCRIPTION: RAD - Foot Left 2 View - 11/29/2019 4:14 pm CLINICAL HISTORY: Second toe soft tissue swelling COMPARISON: None. FINDINGS: Soft tissue swelling is present involving the mid and distal portion of the second toe. No air or foreign body in the soft tissues. Bone destructive changes are present involving the distal p halanx. There may be some bone loss in the head of the second middle phalanx. Second proximal phalanx is intact. Elsewhere no acute fracture or bone destructive process seen. Pes planus deformity seen. There is a plantar spur present. Arterial calcifications are present. IMPRESSION: Osteomyelitis bone destructive changes involving the second distal phalanx and possibly the head of the second middle phalanx. Soft tissue swelling of the second toe with no air or foreign body.
--- NOTE | 2019-11-29 16:47 | RAD REPORT ---
EXAM DESCRIPTION: RAD - Foot Right 2 View - 11/29/2019 4:18 pm CLINICAL HISTORY: Right fourth toe soft tissue swelling COMPARISON: None. FINDINGS: No bone destructive changes identifiable. No fracture or acute bone process seen. Arterial tree calcifications are present. Degenerative bony changes are present. Plantar spur and pes planus configuration noted. IMPRESSION: No bone destructive changes seen. No air or foreign body in the soft tissues.
[2019-11-29 16:49] LABS: Urine Blood TRACE (NEG); Urine Glucose NEGATIVE (NEG); Urine Protein 3+ (NEG)
[2019-11-29 17:14] LABS: Urine Bacteria <20 /HPF (<20); Urine RBC NONE SEEN /HPF (NONE SEEN)
[2019-11-29 17:15] LABS: Urine Culture Reflex Order NOT NEEDED
[2019-11-29 17:46] LABS: Absolute Lymphocytes (CBC) 1.7 K/uL (0.7-4.9); Basophils % 0.6 % (0-1.3); Hematocrit 36.6 % (36.0-45.0); Lymphocytes % 24.9 % (15.3-44.8); MPV 8.3 fL (7.6-11.3)
[2019-11-29 18:04] LABS: ALT/SGPT 22 U/L (12-78); AST/SGOT 17 U/L (15-37); Albumin 3.2 g/dL (3.4-5.0); Alkaline Phosphatase 79 U/L (45-117); BUN Blood Urea Nitrogen 42 mg/dL (7-18); Bicarbonate 29 mmol/L (21-32); Bilirubin Direct 0.2 mg/dL (0-0.2); Bilirubin Total 0.4 mg/dL (0.2-1.0); Glucose Level 192 mg/dL (74-106); Magnesium 2.2 mg/dL (1.8-2.4); Potassium 3.5 mmol/L (3.5-5.1); Protein, Total 7.6 g/dL (6.4-8.2); Sodium Level 141 mmol/L (136-145); Troponin (Emerg Dept Use Only) < 0.02 ng/mL (0.0-0.045)
--- NOTE | 2019-11-29 18:29 | ER ---
Nurse's Notes [facility] Name: Tsering Osman Age: 79 yrs Sex: Female : 1940 Arrival Date: 11/29/2019 Time: 14:26 Bed 18 Private MD: Alexia Arellano C Diagnosis: Osteomyelitis-left second toe;Cellulitis of right toe-fourth Presentation: 11/29 14:54 Presenting complaint: Patient states: "I think I'm having a UTI." Daughter reports jl7 she's been more tired and a little confused x 1 day and when she gets like this it's normally a UTI. Also reports left foot middle toe has a wound on the bottom side, noticed it yesterday due to drainage but doesn't have much feeling in her feet due to DM. Transition of care: patient was not received from another setting of care. Onset of symptoms was November 28, 2019. Risk Assessment: Do you want to hurt yourself or someone else? Patient reports no desire to harm self or others. Initial Sepsis Screen: Does the patient meet any 2 criteria? No. Patient's initial sepsis screen is negative. Does the patient have a suspected source of infection? Yes: Skin breakdown/wound. Care prior to arrival: None. 14:54 Method Of Arrival: Ambulatory jl7 14:54 Acuity: MANNIE 3 jl7 Triage Assessment: 15:03 General: Appears in no apparent distress. uncomfortable, Behavior is calm, cooperative, jl7 appropriate for age. Pain: Denies pain. Historical: - Allergies: 15:03 NKA; jl7 - Home Meds: 15:03 aspirin 81 mg Oral chew 1 tab once daily [Active]; atorvastatin 20 mg Oral tab 1 tab jl7 nightly [Active]; Coreg 6.25 mg Oral tab 1 tab 2 times per day [Active]; ferrous sulfate 325 mg (65 mg iron) Oral tab 2 tab daily [Active]; furosemide 40 mg Oral tab 1 tab 2 times per day [Active]; gabapentin 300 mg Oral cap 3 times per day [Active]; glimepiride 4 mg Oral tab 1 tab twice a day [Active]; Onglyza 5 mg Oral tab 1 tab once daily [Active]; magnesium oxide 400 mg Oral tab 400 mg daily [Active]; insulin [Active]; Plavix 75 mg Oral tab 1 tab once daily [Active]; Ventolin HFA 90 mcg/actuation Nebulizer HFAA 2 puffs Q4H prn [Active]; Flovent Inhl 100 mcg twice a day [Active]; Oxybutynin Chloride Oral 1 tab once daily [Active]; trazodone 50 mg Oral tab nightly [Active]; Centrum Silver Oral daily [Active]; - PMHx: 15:03 CHF; Hypertension; Diabetes - IDDM; Asthma; neuropathy; jl7 - PSHx: 15:03 right knee sx; back sx; Heart stents; jl7 - Immunization history:: Adult Immunizations not up to date. - Social history:: Smoking status: Patient/guardian denies using tobacco. - Ebola Screening: : No symptoms or risks identified at this time. Screenin:39 Abuse screen: Denies threats or abuse. Denies injuries from another. Nutritional ph screening: No deficits noted. Tuberculosis screening: No symptoms or risk factors identified. Fall Risk None identified. Assessment: 17:42 General: Appears in no apparent distress. comfortable, obese, well groomed, Behavior is ph calm, cooperative, appropriate for age, Denies fever. Pain: Denies pain. 17:43 Neuro: Level of Consciousness is awake, alert, obeys commands, Oriented to person, ph place, time, situation. Cardiovascular: Capillary refill < 3 seconds in bilateral fingers Patient's skin is warm and dry. Respiratory: Airway is patent Respiratory effort is even, unlabored, Respiratory pattern is regular, symmetrical. GI: Patient currently denies abdominal pain, diarrhea, nausea, vomiting. : Reports burning with urination, urinary frequency. Derm: Skin is fragile, is thin, Skin is pink, warm \\T\\ dry. Wound noted plantar aspect of left second toe and right fourth toe. Musculoskeletal: Circulation, motion, and sensation intact. Range of motion: intact in all extremities. 18:45 Reassessment: Patient appears in no apparent distress at this time. Patient and/or ph family updated on plan of care and expected duration. Pain level reassessed. Patient is alert, oriented x 3, equal unlabored respirations, skin warm/dry/pink. 20:00 Reassessment: Patient appears in no apparent distress at this time. Patient and/or iw family updated on plan of care and expected duration. Pain level reassessed. Patient is alert, oriented x 3, equal unlabored respirations, skin warm/dry/pink. Vital Signs: 15:03 BP 190 / 84; Pulse 77; Resp 17 S; Temp 98.9(O); Pulse Ox 94% on R/A; Pain 0/10; jl7 17:37 BP 173 / 67; Pulse 62; Resp 17; Temp 98.1(O); Pulse Ox 94% on R/A; mh5 18:58 BP 172 / 68; Pulse 64; Resp 18; Pulse Ox 95% on R/A; ph 22:07 BP 175 / 82; Pulse 81; Resp 16; Pulse Ox 98% on R/A; iw ED Course: 14:26 Patient arrived in ED. mr 14:27 Alexia Arellano MD is Private Physician. mr 14:58 Triage completed. jl7 15:03 Arm band placed on right wrist. jl7 15:37 Maulik Clemente PA is PHCP. cp 15:37 Maulik Webster MD is Attending Physician. cp 15:49 Lashonda Sunshine, RN is Primary Nurse. ph 16:14 XRAY Foot RIGHT 2 View In Process Unspecified. EDMS 16:14 XRAY Foot LEFT 2 View In Process Unspecified. EDMS 16:40 Patient has correct armband on for positive identification. Bed in low position. Call 5 light in reach. Side rails up X 1. Adult w/ patient. Pulse ox on. NIBP on. 16:40 Urine collected: clean catch specimen, cloudy. mh5 16:41 Urine Culture Sent. mh5 16:41 Urine Microscopic Only Sent. mh5 16:45 EKG done, by ED staff, reviewed by Maulik ZHANG. mh5 17:10 No provider procedures requiring assistance completed. Missed attempt(s): 22 gauge in ph right antecubital area. Bleeding controlled, band aid applied, catheter tip intact. Inserted saline lock: 22 gauge in left antecubital area, using aseptic technique. 18:27 Alexia Arellano MD is Hospitalizing Provider. cp 22:25 Patient admitted, IV remains in place. iw Administered Medications: 19:00 Drug: NS 0.9% 1000 ml Route: IV; Rate: 75 ml/hr; Site: left antecubital; iw 19:14 Drug: NS 0.9% 250 ml Route: IV; Rate: bolus; Site: left antecubital; iw 19:14 Drug: Zosyn 3.375 grams Route: IVPB; Infused Over: 60 mins; Site: left antecubital; iw 21:32 Drug: vancoMYCIN 1 grams Route: IVPB; Infused Over: 2 hrs; Site: left antecubital; iw Outcome: 18:28 Decision to Hospitalize by Provider. cp 22:25 Admitted to Med/surg accompanied by tech, via wheelchair, room 421. iw 22:25 Condition: good 22:25 Discharge instructions given to patient, family, Instructed on the need for admit. 22:28 Patient left the ED. iw Signatures: Dispatcher [employer] EDMS Ginette Cedeno mr Hollie Henderson RN RN Lashonda Sunshine RN RN Maulik De PA PA cp Martinez, [facility] Netta Velazquez RN RN jl7
--- NOTE | 2019-11-29 18:30 | EDPHYS ---
Physician Documentation [facility] Name: Tsering Osman Age: 79 yrs Sex: Female : 1940 Arrival Date: 11/29/2019 Time: 14:26 Bed 18 Private MD: Alexia Arellano C ED Physician Maulik Webster HPI: 11/29 15:55 This 79 yrs old Female presents to ER via Ambulatory with complaints of cp Urinary Problem, Toe laceration. 15:55 The patient presents with possible urinary tract infection. Onset: The symptoms/episode cp began/occurred 1 day(s) ago. 15:55 Associated signs and symptoms: Pertinent positives: nausea, Pertinent negatives: cp constipation, diarrhea, dysuria, fever, vomiting, flank pain. Severity of symptoms: in the emergency department the symptoms are unchanged. Historical: - Allergies: 15:03 NKA; jl7 - Home Meds: 15:03 aspirin 81 mg Oral chew 1 tab once daily [Active]; atorvastatin 20 mg Oral tab 1 tab jl7 nightly [Active]; Coreg 6.25 mg Oral tab 1 tab 2 times per day [Active]; ferrous sulfate 325 mg (65 mg iron) Oral tab 2 tab daily [Active]; furosemide 40 mg Oral tab 1 tab 2 times per day [Active]; gabapentin 300 mg Oral cap 3 times per day [Active]; glimepiride 4 mg Oral tab 1 tab twice a day [Active]; Onglyza 5 mg Oral tab 1 tab once daily [Active]; magnesium oxide 400 mg Oral tab 400 mg daily [Active]; insulin [Active]; Plavix 75 mg Oral tab 1 tab once daily [Active]; Ventolin HFA 90 mcg/actuation Nebulizer HFAA 2 puffs Q4H prn [Active]; Flovent Inhl 100 mcg twice a day [Active]; Oxybutynin Chloride Oral 1 tab once daily [Active]; trazodone 50 mg Oral tab nightly [Active]; Centrum Silver Oral daily [Active]; - PMHx: 15:03 CHF; Hypertension; Diabetes - IDDM; Asthma; neuropathy; jl7 - PSHx: 15:03 right knee sx; back sx; Heart stents; jl7 - Immunization history:: Adult Immunizations not up to date. - Social history:: Smoking status: Patient/guardian denies using tobacco. - Ebola Screening: : No symptoms or risks identified at this time. ROS: 16:00 Constitutional: Negative for body aches, chills, fever, poor PO intake. cp 16:00 Eyes: Negative for injury, pain, redness, and discharge. cp 16:00 ENT: Negative for ear pain, sore throat, difficulty swallowing, difficulty handling secretions. 16:00 Cardiovascular: Negative for chest pain. 16:00 Respiratory: Negative for cough, wheezing. 16:00 Abdomen/GI: Positive for nausea, Negative for abdominal pain, vomiting, diarrhea, constipation. 16:00 : Negative for burning with urination. 16:00 Skin: Positive for cellulitis, of the right foot and left foot. 16:00 Neuro: Positive for weakness, Negative for altered mental status, headache. 16:00 All other systems are negative. Exam: 16:05 Constitutional: The patient appears in no acute distress, alert, awake, cp non-diaphoretic, non-toxic, well developed, well nourished. 16:05 Head/Face: Normocephalic, atraumatic. cp 16:05 Eyes: Periorbital structures: appear normal, Conjunctiva: normal, no exudate, no injection, Sclera: no appreciated abnormality, Lids and lashes: appear normal, bilaterally. 16:05 ENT: External ear(s): are unremarkable, Nose: is normal, Mouth: is normal, Posterior pharynx: is normal, airway is patent, no erythema, no exudate, Voice: is normal. 16:05 Neck: ROM/movement: Meningeal signs: are not present, nuchal rigidity, is not appreciated. 16:05 Chest/axilla: Inspection: normal, Palpation: is normal, no crepitus, no tenderness. 16:05 Cardiovascular: Rate: normal, Rhythm: regular, JVD: is not appreciated. 16:05 Respiratory: the patient does not display signs of respiratory distress, Respirations: normal, no use of accessory muscles, no retractions, no splinting, no tachypnea, labored breathing, is not present, Breath sounds: are clear throughout, no decreased breath sounds, no stridor, no wheezing. 16:05 Abdomen/GI: Inspection: abdomen appears normal, Bowel sounds: active, all quadrants, Palpation: abdomen is soft and non-tender, in all quadrants. 16:05 Back: CVA tenderness, is absent. 16:05 Skin: cellulitis, well demarcated, on the left second toe and right fourth toe, injury, pressure ulcer noted to left second toe and right fourth toe. 16:05 Neuro: Orientation: to person, place \T\ time. Mentation: is normal, Cerebellar function: is grossly normal, Motor: moves all fours, strength is normal, Sensation: is normal. 17:19 ECG was reviewed by the Attending Physician. Vital Signs: 15:03 BP 190 / 84; Pulse 77; Resp 17 S; Temp 98.9(O); Pulse Ox 94% on R/A; Pain 0/10; jl7 17:37 BP 173 / 67; Pulse 62; Resp 17; Temp 98.1(O); Pulse Ox 94% on R/A; mh5 18:58 BP 172 / 68; Pulse 64; Resp 18; Pulse Ox 95% on R/A; ph 22:07 BP 175 / 82; Pulse 81; Resp 16; Pulse Ox 98% on R/A; iw MDM: 15:42 Patient medically screened. gris 16:00 Differential diagnosis: urinary tract infection, sepsis, osteomyelitis, cellulitis, cp pyelonephritis, sepsis. 18:25 Data reviewed: vital signs, nurses notes, lab test result(s), EKG, radiologic studies, cp plain films, I have discussed the patient's presentation/case with the attending Emergency Department Physician; and as a result, I will admit patient. 18:25 Test interpretation: by ED physician or midlevel provider: ECG. Counseling: I had a detailed discussion with the patient and/or guardian regarding: the historical points, exam findings, and any diagnostic results supporting the discharge/admit diagnosis, the presence of at least one elevated blood pressure reading (>120/80) during this emergency department visit, lab results, radiology results, the need for further work-up and treatment in the hospital. 18:27 Physician consultation: A Adan AQUINO was called at 18:27, was contacted at 18:27, regarding admission, to the medical/surgical unit. patient's condition. 11/29 15:51 Order name: Urine Microscopic Only; Complete Time: 17:16 11/29 17:17 Interpretation: Normal except: UWBC 5-10. 11/29 15:51 Order name: Urine Culture cp 11/29 15:51 Order name: Troponin (emerg Dept Use Only); Complete Time: 18:11 cp 11/29 15:51 Order name: Basic Metabolic Panel; Complete Time: 18:11 cp 11/29 18:11 Interpretation: Normal except: GLUC 192; BUN 42; GFR 40. cp 11/29 15:51 Order name: CBC with Diff; Complete Time: 18:11 cp 11/29 15:51 Order name: LFT's; Complete Time: 18:11 cp 11/29 15:51 Order name: Magnesium; Complete Time: 18:11 cp 11/29 16:42 Order name: Urine Dipstick--Ancillary (enter results); Complete Time: 17:06 ms 11/29 17:06 Interpretation: Normal except: UBLD TRACE; UPROT 3+; UESTR TRACE. cp 11/29 17:16 Order name: Blood Culture Adult (2) cp 11/29 17:16 Order name: Procalcitonin; Complete Time: 18:18 cp 11/29 18:18 Interpretation: Within normal limits. cp 11/29 17:16 Order name: Lactate; Complete Time: 18:11 cp 11/29 18:29 Order name: Wound Culture cp 11/29 19:55 Order name: Vancomycin Peak EDMS 11/29 19:55 Order name: Basic Metabolic Panel EDMS 11/29 15:51 Order name: XRAY Foot RIGHT 2 View; Complete Time: 17:06 cp 11/29 17:06 Interpretation: Report reviewed. cp 11/29 15:51 Order name: XRAY Foot LEFT 2 View; Complete Time: 17:06 cp 11/29 17:06 Interpretation: Report reviewed. cp 11/29 15:51 Order name: Urine Dipstick-Ancillary (obtain specimen); Complete Time: 16:41 cp 11/29 15:51 Order name: EKG - Nurse/Tech; Complete Time: 16:46 cp 11/29 15:51 Order name: EKG; Complete Time: 15:53 cp 11/29 15:51 Order name: Cardiac monitoring; Complete Time: 17:40 cp 11/29 15:51 Order name: IV Saline Lock; Complete Time: 17:41 cp 11/29 19:55 Order name: CONS Pharmacy Consult EDMS 11/29 19:55 Order name: Basic Metabolic Panel EDMS 11/29 20:00 Order name: Consistent Carb (ADA) [address] EDMS 11/29 20:01 Order name: CBC with Automated Diff EDMS 11/29 20:01 Order name: CBC with Automated Diff EDMS 11/29 15:51 Order name: Labs collected and sent; Complete Time: 17:41 cp 11/29 15:51 Order name: O2 Per Protocol; Complete Time: 17:41 cp 11/29 15:51 Order name: O2 Sat Monitoring; Complete Time: 17:41 cp EC:19 Rate is 71 beats/min. Rhythm is regular. WI interval is prolonged at 226 msec. QRS cp interval is normal. QT interval is normal. T waves are Inverted in lead aVL. Interpreted by me. Reviewed by me. Administered Medications: 19:00 Drug: NS 0.9% 1000 ml Route: IV; Rate: 75 ml/hr; Site: left antecubital; iw 19:14 Drug: NS 0.9% 250 ml Route: IV; Rate: bolus; Site: left antecubital; iw 19:14 Drug: Zosyn 3.375 grams Route: IVPB; Infused Over: 60 mins; Site: left antecubital; iw 21:32 Drug: vancoMYCIN 1 grams Route: IVPB; Infused Over: 2 hrs; Site: left antecubital; iw Disposition: 11/29/19 18:28 Hospitalization ordered by Alexia Arellano for Inpatient Admission. Preliminary diagnosis are Osteomyelitis - left second toe, Cellulitis of right toe - fourth. - Bed requested for Telemetry/MedSurg (Inpatient). - Status is Inpatient Admission. iw - Condition is Stable. - Problem is new. - Symptoms have improved. UTI on Admission? No Addendum: 12/01/2019 09:32 Co-signature as Attending Physician, Maulik Webster MD I agree with the assessment and c rivera plan of care. Signatures: Dispatcher [employer] EDAR Maulik Webster MD MD cha Williams, Irene, RN RN Maulik Gabriel PA PA cp Leal, Jahala, RN RN jl7 Miguel Angel Shelby RN RN ja1 Corrections: (The following items were deleted from the chart) 11/29 19:26 18:28 Hospitalization Ordered by Alexia Arellano MD for Inpatient Admission. Preliminary cp diagnosis is Osteomyelitis - left second toe. Bed requested for Telemetry/MedSurg (Inpatient). Status is Inpatient Admission. Condition is Stable. Problem is new. Symptoms have improved. UTI on Admission? No. cp 20:57 19:26 11/29/2019 18:28 Hospitalization Ordered by A Adan AQUINO for Inpatient Admission. ja1 Preliminary diagnosis is Osteomyelitis - left second toe; Cellulitis of right toe - fourth. Bed requested for Telemetry/MedSurg (Inpatient). Status is Inpatient Admission. Condition is Stable. Problem is new. Symptoms have improved. UTI on Admission? No. cp 22:28 20:57 11/29/2019 18:28 Hospitalization Ordered by A Adan AQUINO for Inpatient Admission. iw Preliminary diagnosis is Osteomyelitis - left second toe; Cellulitis of right toe - fourth. Bed requested for Telemetry/MedSurg (Inpatient). Status is Inpatient Admission. Condition is Stable. Problem is new. Symptoms have improved. UTI on Admission? No. ja1
[2019-11-29] MEDS ORDERED: VANCOMYCIN 1 GM/VIAL ONE (19:02)
[2019-11-29] MEDS ORDERED: PIPER/TAZO/NS 3.375gm 3.375 GM/100 ML BAG ONE (19:03)
[2019-11-29] MEDS ORDERED: NA CHLORIDE 0.9% 1,000 ML ONE (19:03)
[2019-11-29] MEDS ORDERED: NA CHLORIDE 0.9% 250 ML ONE (19:03)
[2019-11-29] MEDS ORDERED: Pharmacy Consult 1 EA XX PRN (19:51)
[2019-11-29] MEDS ORDERED: ACETAMINOPHEN 500 MG TAB PO PRN (19:51)
[2019-11-29 22:53] VITALS: BMI 34.0
[2019-11-29] MEDS ORDERED: VANCOMYCIN 750 MG in NA CHLORIDE 0.9% 250 ML IVPB ONE (23:30)
[2019-11-30] MEDS ORDERED: PIPER/TAZO/NS 3.375gm 6.750 GM/200 ML BAG ONE (00:44)
[2019-11-30] MEDS ORDERED: PIPER/TAZO/NS 3.375gm 3.375 GM/100 ML BAG IVPB SCH ×3 (01:00→06:00)
[2019-11-30] MEDS ORDERED: GLUCAGON 1 MG/VIAL IM PRN (04:34)
[2019-11-30] MEDS ORDERED: D50W 25 GM/50 ML SYRINGE/VIAL IV PRN (04:34)
[2019-11-30] MEDS ORDERED: ACETAMINOPHEN 500 MG TAB PO PRN (04:49)
[2019-11-30] MEDS ORDERED: VANCOMYCIN 750 MG in NA CHLORIDE 0.9% 250 ML IVPB ONE (05:15)
[2019-11-30] MEDS ORDERED: NA CHLORIDE 0.9% 250 ML ONE (05:23)
[2019-11-30] MEDS ORDERED: VANCOMYCIN 1 GM/VIAL ONE (05:23)
[2019-11-30 06:23] LABS: Absolute Lymphocytes (CBC) 1.4 K/uL (0.7-4.9); Hematocrit 34.2 % (36.0-45.0); Lymphocytes % 19.3 % (15.3-44.8); MPV 7.9 fL (7.6-11.3); RBC Red Blood Cell Count 3.78 M/uL (3.86-4.86)
[2019-11-30 06:32] LABS: Potassium 3.7 mmol/L (3.5-5.1)
[2019-11-30] MEDS: INSULIN -REGULAR HUMAN 50 UNIT/0.5 ML ML SQ SCH ×4 (07:30→21:00)
[2019-11-30] MEDS ORDERED: ALBUTEROL INHALER 60 PUFF/8 GM IH PRN ×2 (09:43→10:30)
[2019-11-30] MEDS ORDERED: HOME MED 1 EA UNK (Fluoxetine Hcl [Prozac] 40 MG) PO SCH (10:00)
[2019-11-30] MEDS: LOSARTAN POTASSIUM 50 MG TABLET PO SCH (10:21)
[2019-11-30] MEDS: ONDANSETRON 4 MG/2 ML VIAL IV PRN ×2 (10:21→16:21)
[2019-11-30] MEDS: FLUOXETINE 20 MG CAP PO SCH (10:21)
[2019-11-30] MEDS: carvediloL 6.25 MG TAB PO SCH ×2 (10:21→21:44)
[2019-11-30] MEDS ORDERED: ENOXAPARIN 40 MG/0.4 ML SQ ONE (11:00)
[2019-11-30] MEDS ORDERED: MAGNES/ALUMIN/SIMET 30ML UCUP PO ONE (12:00)
[2019-11-30] MEDS: CEFTRIAXONE/SWI 1gm 1 GM/10 ML SYR IVP SCH ×2 (12:00→21:44)
--- NOTE | 2019-11-30 12:48 | EKG ---
Test Date: 2019-11-29 Test Time: 17:13:40 Commercial Lending Relationship Manager: HA MEASUREMENT RESULTS: Intervals: Rate: 71 IA: 226 QRSD: 86 QT: 424 QTc: 460 [place]: P: 105 IA: 226 QRS: 27 T: 72 INTERPRETIVE STATEMENTS: Sinus rhythm with 1st degree AV block Anterior infarct, age undetermined Abnormal ECG Compared to ECG 10/22/2019 06:45:16 No significant changes Electronically Signed On 11-30-19 12:47:40 SUPERVISOR COREMAKER by Dariel Paulino
[2019-11-30] MEDS ORDERED: HOME MED 1 EA UNK (Gabapentin [Gralise] 300 MG) PO SCH (14:00)
[2019-11-30] MEDS: GABAPENTIN 300 MG CAP PO SCH ×2 (15:36→21:44)
[2019-11-30] MEDS: FUROSEMIDE 40 MG TABLET PO SCH (16:18)
[2019-11-30] MEDS: GLIMEPIRIDE 2 MG TABLET PO SCH (16:18)
[2019-11-30] MEDS ORDERED: HOME MED 1 EA UNK (Glimepiride [Amaryl] 4 MG) PO SCH (17:00)
--- NOTE | 2019-11-30 17:30 | RAD REPORT ---
EXAM DESCRIPTION: RAD - Chest Single View - 11/30/2019 5:01 pm CLINICAL HISTORY: PICC COMPARISON: Chest Pa And Lat (2 Views) dated 10/22/2019; Chest Single View dated 10/22/2019; Chest S miranda View dated 09/26/2016; Chest Single View dated 09/23/2016 FINDINGS: Portable chest was obtained following placement of a right upper extremity PICC line. The catheter tip projects over the atrial caval junction.
--- NOTE | 2019-11-30 19:15 | RAD REPORT ---
EXAM DESCRIPTION: US - Lower Extremity Arterial Bilat - 11/30/2019 6:43 pm CLINICAL HISTORY: rule out PVD Leg pain, claudication COMPARISON: No comparisons TECHNIQUE: Bilateral lower extremity arterial Doppler examination was performed with queenie larkin FINDINGS: Triphasic waveforms are seen throughout both lower extremity arterial systems to the level popliteal arteries. Infrapopliteal vessels bilaterally demonstrate blunted amplitude and monophasic waveforms, slightly w orse on the left, compatible with moderate distal peripheral vascular disease. IMPRESSION: Evidence of moderate bilateral infrapopliteal peripheral vascular disease is present, sl ightly worse on the left and distally. No occlusion identified.
[2019-11-30] MEDS ORDERED: carvediloL 6.25 MG TAB PO SCH (21:00)
[2019-11-30] MEDS ORDERED: INFLUENZA VACCINE (for 3y+) 0.5 ML DOSE IMVAC ONE (21:00)
[2019-11-30] MEDS ORDERED: VANCOMYCIN 1.75 GM in NA CHLORIDE 0.9% 500 ML IVPB SCH (21:00)
[2019-11-30] MEDS: ATORVASTATIN 20 MG TAB PO SCH (21:43)
[2019-11-30] MEDS: ASPIRIN 81 MG CHEWABLE TABLET PO SCH (21:44)
[2019-11-30] MEDS: VANCOMYCIN 1.75 GM in NA CHLORIDE 0.9% 500 ML IVPB SCH (21:44)
[2019-11-30] MEDS: CLOPIDOGREL 75 MG TABLET PO SCH (21:44)
[2019-11-30] MEDS: TRAZODONE 50 MG TABLET PO SCH (21:44)
--- NOTE | 2019-11-30 22:41 | HP ---
Date of Admission: 11/30/2019 Chief Complaint: Feeling weak and confused, and drainage from the left foot 2nd toe. History Of Present Illness: This is an 79-year-old female patient with multiple comorbidities including diabetes and diabetic neuropathy, who does not have normal sensation in her feet. Denies any injury to her left foot, but she felt like that her 2nd toe on the left foot felt a little wet, so she was concerned about some drainage from that foot. Started to feel a little confused and weak, and she was concerned about having a urinary tract infection as she had similar presentation a little over a month ago when she was in the hospital last time. So, she came into emergency room. After she was evaluated in the emergency room, she was noted to have actually osteomyelitis of left foot 2nd toe with right foot 4th toe also showing signs of infection on the dorsum aspect. She was not aware of anything wrong with the right foot at all. She thinks that the right foot 4th toe problem that is noted is likely due to ill-fitting shoe, but she denies using any different or new pair of shoes lately. No fall. No injury. No fever, chills. She was admitted to the hospital. When I saw her this morning, her daughter was with her at bedside. Patient reports that her eyesight is extremely poor, and she is not able to examine her feet for any details. She also has impaired sensation in her both feet because of neuropathy problem. She has chronic pain in her legs and feet because of neuropathy that has not changed lately. Medications: List was reviewed. 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 Dermatology: As mentioned above. All other systems were reviewed and were negative. Allergies: NO KNOWN ALLERGIES. 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 Past Surgical History: Hysterectomy, back surgery in 2013, coronary artery angioplasty with stent placement in 2013. Patient had a cardiac cath done during her last hospital admission. No intervention was done at that time. Family History: Significant for heart disease, lung cancer. Social History: Negative for smoking and alcohol use. Physical Examination: Vital Signs: Temperature 98.2, pulse 84, respiratory rate 17, blood pressure 155/64, oxygen saturation 97%, height 5 feet 7 inches, weight 217 pounds. General: Awake, alert, oriented, not in distress. HEENT: Head atraumatic, normocephalic. Conjunctivae nonerythematous. Sclerae white. Mouth, no thrush or edema noted. Ears/Nose, no mass, lesion, discharge noted. Neck: Supple. No JVD, lymph nodes, bruit, thyromegaly noted. Lungs: Bilateral good equal air entry. Clear to auscultation. No rhonchi. No rales. Heart: Normal heart sounds, no murmur or gallop. Abdomen: Soft, bowel sounds normal. No guarding, rigidity, tenderness, mass, hepatosplenomegaly, distention, or bruit noted. Skin: No rash, ulcer, cellulitis. Lymphatics: No lymph node enlargement in neck, supraclavicular, infraclavicular region. Neuro: No focal neurological deficit. Chest: Unremarkable. External Genitalia: Deferred. Rectal: Deferred. Extremities: Trace edema noted in both lower extremities, more so in the left leg than the right leg. Right foot 4th toe: On the dorsum aspect, almost entire toe is swollen with pink and warm skin. Dorsum aspect of this 4th toe, almost 3/4 area of the skin has shown superficial abrasion. No discharge. No bleeding. Left foot 2nd toe has slightly hammertoe type of deformity, and on the plantar aspect of the majority of this, the 2nd toe has callus present. There is no active discharge or bleeding. Peripheral pulses: Difficult to feel dorsalis pedis pulse on both feet. Laboratory Data And Imaging: Yesterday, white count 6.9, hemoglobin 12, platelets 232. Today, white count 7.3, hemoglobin 11.3, platelets 220. Yesterday, sodium 141, potassium 3.5, chloride 105, bicarb 29, BUN 42, creatinine 1.27, glucose 192. Liver function tests unremarkable. Procalcitonin less than 0.05. Lactic acid 1. This morning, sodium 146, potassium 3.7, chloride 111, bicarb 29, BUN 31, creatinine 1.21, glucose 140. Urinalysis: Trace leukocyte esterase, bacteria less than 20, wbc's 5-10, 3+ protein, negative for nitrites. Left foot x-ray shows changes of osteomyelitis involving the 2nd toe distal phalanx and part of the middle phalanx. Right foot x-ray: Negative for osteomyelitis changes. Impression: 1. Osteomyelitis, acute, left foot. 2. Cellulitis, right foot. 3. Chronic kidney disease stage 3. 4. Anemia due to chronic kidney disease. 5. Diabetic neuropathy. 6. Coronary artery disease. 7. Osteoarthritis, multiple sites. 8. Hypertension. 9. Hyperlipidemia. Plan: We will admit the patient to hospital for further evaluation and management of this problem. Patient is appropriate for inpatient and is expected to spend 2 midnights in the hospital. Home medications will be continued per order. She was having some nausea this morning, so the Zofran was ordered for her. If Zofran does not help her, then nurse is asked to give 30 mL of Maalox x1 dose. We will give empiric antibiotics, which are vancomycin and ceftriaxone. I have ordered a PICC line and an MRI of the bilateral feet to be done tomorrow. I will communicate with general surgeon and request consultation. Our goal is to try to resolve this osteomyelitis problem with the help of antibiotic therapy for 6 weeks, and hopefully, we can avoid any surgical intervention. I will get an arterial Doppler of lower extremities to evaluate her circulation. Details and plan of treatment were discussed with her. I also discussed with her about her advance directives, and DNR order was written in the chart as per patient's decision. DVT prophylaxis will be given per order. Patient would prefer to go home with home IV antibiotic therapy, so we will request our social service to assist with her discharge planning and home IV antibiotic therapy. Patient's daughter and granddaughter will be willing to provide her help with antibiotic administration. JAVY/BRAULIO Voice ID: [id number] ELYSSA
[2019-12-01] MEDS: INSULIN -REGULAR HUMAN 50 UNIT/0.5 ML ML SQ SCH ×4 (07:30→20:40)
[2019-12-01] MEDS: MAGNESIUM OXIDE 400 MG TAB PO SCH (09:00)
[2019-12-01] MEDS ORDERED: FOLIC PO SCH (09:00)
[2019-12-01] MEDS ORDERED: IRON PO SCH (09:00)
[2019-12-01] MEDS ORDERED: LUTEIN PO SCH (09:00)
[2019-12-01] MEDS ORDERED: LOSARTAN POTASSIUM 50 MG TABLET PO SCH (09:00)
[2019-12-01] MEDS ORDERED: MULTIVIT MIN PO SCH (09:00)
[2019-12-01] MEDS ORDERED: HOME MED 1 EA UNK (Fluoxetine Hcl [Prozac] 40 MG) PO SCH (09:00)
[2019-12-01] MEDS: CEFTRIAXONE/SWI 1gm 1 GM/10 ML SYR IVP SCH ×2 (09:08→20:39)
[2019-12-01] MEDS: SITAGLIPTIN PHOS 100 MG TAB PO SCH (09:08)
[2019-12-01] MEDS: OXYBUTYNIN CHLORIDE 5 MG TAB PO SCH (09:08)
[2019-12-01] MEDS: GLIMEPIRIDE 2 MG TABLET PO SCH ×2 (09:08→16:31)
[2019-12-01] MEDS: LOSARTAN POTASSIUM 50 MG TABLET PO SCH (09:09)
[2019-12-01] MEDS: GABAPENTIN 300 MG CAP PO SCH ×3 (09:09→20:39)
[2019-12-01] MEDS: FERROUS SULFATE 325 MG TAB PO SCH (09:09)
[2019-12-01] MEDS: FUROSEMIDE 40 MG TABLET PO SCH ×2 (09:09→16:31)
[2019-12-01] MEDS: MULTIVIT W/ MINERAL TAB PO SCH (09:09)
[2019-12-01] MEDS: FLUOXETINE 20 MG CAP PO SCH (09:09)
[2019-12-01] MEDS: ENOXAPARIN 40 MG/0.4 ML SQ SCH (09:10)
[2019-12-01] MEDS: carvediloL 6.25 MG TAB PO SCH ×2 (09:10→20:39)
--- NOTE | 2019-12-01 10:01 | RAD REPORT ---
EXAM DESCRIPTION: MRI - Foot Right Wo Cont - 12/01/2019 8:18 am CLINICAL HISTORY: osteomyelitis Fourth toe swelling. COMPARISON: Foot Right 2 View dated 11/29/2019 FINDINGS: The distal phalanx of the second toe demonstrates diminished T1 signal and elevated T2/IR signal with cortical irregularity present. This is suspicious for mild osteomyelitis. Subtle edema is present in the distal phalanx of the fourth toe without marrow replacement. This is p robably reactive in nature. No soft tissue mass or hematoma. No drainable fluid collection. No fracture seen. IMPRESSION: Mild osteomyelitis suspected distal phalanx of the second toe.
--- NOTE | 2019-12-01 10:06 | RAD REPORT ---
EXAM DESCRIPTION: MRI - Foot Left Wo Cont - 12/01/2019 8:47 am CLINICAL HISTORY: osteomyelitis Pain and swelling to the second toe. COMPARISON: No comparisons FINDINGS: Abnormal diminished T1 signal and elevated T2 signal is seen distal phalanx of the second toe with surrounding edema in the soft tissues. The soft tissues are also thickened. No drainable flu id collection. Elsewhere, no evidence of marrow replacing process. No soft tissue mass or hematoma. No fracture. Pro minent plantar calcaneal spur seen. IMPRESSION: Moderate osteomyelitis involves the distal phalanx of the second toe.
--- NOTE | 2019-12-01 15:54 | CON ---
Date of Consultation: 11/30/2019 Reason For Consultation: Wound, left foot and right foot and osteomyelitis. History Of Present Illness: Patient is an 79-year-old female with multiple medical problems, who cam e in with wound on her left second toe. She was concerned about some drainage. She was also confuse d and weak and that she had a x-ray done, which showed osteo on the left foot. She also has a wound on the right foot on the 4th toe. She has very poor sensation in her lower extremity, because of her diabetic neuropathy. There is no fever or chills and there is drainage from the left 2nd toe. Review of Systems: Otherwise unremarkable. Past Medical History: Significant for coronary artery disease, osteoarthritis, hyperlipidemia, diabe figueroa, chronic kidney disease, hypertension, congestive heart failure, depression. Past Surgical History: Hysterectomy, coronary artery angioplasty with stent. Allergies: NO ALLERGIES. Social History: She does not smoke or drink. Family History: Significant for heart disease and lung cancer. Physical Examination: Vital Signs: Stable. She is afebrile. General: She is awake, alert, oriented x3. Head and Neck: Cranial nerves 2 through 12 grossly within normal limit. No neck masses. No JVD. T hroat clear. Neck supple. Chest: Clear. Heart: S1 and S2. Abdomen: Soft. Extremities: Diminished dorsalis pedis and posterior tibial pulses. There is some wrinkling of the skin, which indicated the edema is going down. However, there is edema in the left lower extremity g reater than the right. There is a wound on the bottom of the left 2nd toe, which has some fluctuance and the wound is approximately 1.5 cm in diameter and there was minimal oozing noted from the bottom of the toe in the distal phalanx. On the right 4th toe on the dorsal aspect, there is approximately a 1.5 cm by what appears to be a partial thickness wound, involving the epidermis. The dermis appea rs to be intact, but more like an abrasion primary secondary to pressure. Laboratory Data: Reviewed. White count is 7.3. Chemistry reviewed. Her lactic acid and procalcito drew were normal. Foot MRI shows osteo in the left 2nd toe and also on the right 2nd toe. However, t here is no wound on the right foot. Her Doppler reviewed and there is triphasic flow up to the knee, but below the knee has monophasic flow, slightly worse on the left. Assessment: 79-year-old female with bilateral foot wounds with osteo in both feet. Recommendation: The wound on the left 4th foot was debrided and pus was evacuated at the bedside. C ultures were done. Dressing was ordered. I will [facility] the [facility]. Collagenase dressing daily, home health. She already has a PICC line, then I would jessica mmend based on the culture 6 weeks IV antibiotics. Should the wound did not heal or osteo get worse, she may need further surgical intervention such as a toe amputation. However, at this time, we will try medical management first and she at this time is high risk for any peripheral vascular intervent ion, however, should things worsen, that may be giving more consideration. Again, plan of care discu ssed with the family and Dr. Arellano. /BRAULIO Voice ID: [id number] Report ID: [id number]
[2019-12-01] MEDS: ATORVASTATIN 20 MG TAB PO SCH (20:39)
[2019-12-01] MEDS: CLOPIDOGREL 75 MG TABLET PO SCH (20:39)
[2019-12-01] MEDS: TRAZODONE 50 MG TABLET PO SCH (20:39)
[2019-12-01] MEDS: ASPIRIN 81 MG CHEWABLE TABLET PO SCH (20:39)
[2019-12-01] MEDS: VANCOMYCIN 1.75 GM in NA CHLORIDE 0.9% 500 ML IVPB SCH (20:40)
--- NOTE | 2019-12-01 23:30 | PN ---
Date of Progress Note: 12/01/2019 Subjective: Patient was seen this morning. No new complaints problems reported by her. Objective: Vital Signs: Reviewed. HEENT: Unremarkable. Lungs: Clear to auscultation. Cardiac: Heart sounds normal. Abdomen: Soft. Bowel sounds normal. No guarding, rigidity, tenderness, distention. Extremities: No leg edema. Impression: 1.Osteomyelitis, left foot. 2.Cellulitis, right foot. 3.Coronary artery disease. 4.Diabetes mellitus. 5.Hypertension. Plan: We will continue current antibiotics. PICC line is in place in right arm and details were dis cussed with Dr. Mccullough today. We will follow up on MRI and arterial Doppler results and decide about further plan of treatment. Dr. Mccullough did perform some debridement on the left foot second toe and so me purulent material that was obtained underneath the callus area, was sent for culture. We will josué t for that culture results before making final decision on antibiotics. JAVY/MODL Voice ID: [id number] Report ID: [id number]
[2019-12-02 04:23] LABS: Hematocrit 32.2 % (36.0-45.0); Lymphocytes % 27.3 % (15.3-44.8); MPV 8.3 fL (7.6-11.3); RBC Red Blood Cell Count 3.54 M/uL (3.86-4.86)
[2019-12-02 04:52] LABS: Magnesium 2.3 mg/dL (1.8-2.4); Potassium 3.8 mmol/L (3.5-5.1)
[2019-12-02] MEDS: INSULIN -REGULAR HUMAN 50 UNIT/0.5 ML ML SQ SCH ×4 (07:30→21:00)
[2019-12-02] MEDS: PNEUMOCOCCAL VACCINE 0.5 ML IMVAC ONE (08:31)
[2019-12-02] MEDS: ENOXAPARIN 40 MG/0.4 ML SQ SCH (08:33)
[2019-12-02] MEDS: SITAGLIPTIN PHOS 100 MG TAB PO SCH (08:35)
[2019-12-02] MEDS: FERROUS SULFATE 325 MG TAB PO SCH (08:35)
[2019-12-02] MEDS: MAGNESIUM OXIDE 400 MG TAB PO SCH (08:35)
[2019-12-02] MEDS: GABAPENTIN 300 MG CAP PO SCH ×3 (08:35→21:21)
[2019-12-02] MEDS: GLIMEPIRIDE 2 MG TABLET PO SCH ×2 (08:36→16:51)
[2019-12-02] MEDS: carvediloL 6.25 MG TAB PO SCH ×2 (08:36→21:22)
[2019-12-02] MEDS: FLUOXETINE 20 MG CAP PO SCH (08:36)
[2019-12-02] MEDS: MULTIVIT W/ MINERAL TAB PO SCH (08:38)
[2019-12-02] MEDS: OXYBUTYNIN CHLORIDE 5 MG TAB PO SCH (08:45)
[2019-12-02] MEDS: Levofloxacin 250mg IV 250 MG/50 ML BAG IV SCH (08:46)
[2019-12-02] MEDS: TRAZODONE 50 MG TABLET PO SCH (21:21)
[2019-12-02] MEDS: ASPIRIN 81 MG CHEWABLE TABLET PO SCH (21:21)
[2019-12-02] MEDS: CLOPIDOGREL 75 MG TABLET PO SCH (21:22)
[2019-12-02] MEDS: ATORVASTATIN 20 MG TAB PO SCH (21:22)
--- NOTE | 2019-12-03 00:07 | PN ---
Date of Progress Note: 12/02/2019 Subjective: Patient was seen this morning for followup. She was sleeping, arousable, did not have a ny complaints. Objective: Vital Signs: Reviewed. HEENT: Unremarkable. Lungs: Clear to auscultation. Heart: Sounds normal. Abdomen: Soft. No guarding, rigidity, tenderness, or distention. Extremities: Trace leg edema. Laboratory Data: White count 7.5, hemoglobin 10.4, platelets 180. Sodium 144, potassium 3.8, chlori de 109, bicarb 31, BUN 37, creatinine 2.50, glucose 211, magnesium 2.3. Impression: 1.Acute kidney injury. 2.Osteomyelitis, left foot. 3.Peripheral vascular disease. 4.Diabetes mellitus. 5.Hypertension. 6.Coronary artery disease. Plan: Patient is currently on ceftriaxone and vancomycin and her creatinine was 1.1 to 1.2 range and all of a sudden, it has gone up to 2.5 and will consider possibility of patient's vancomycin. So, I will discontinue that particular antibiotic. I did start her on Levaquin per order. We will repeat blood work tomorrow. She has history of congestive heart failure and we will not give any IV fluid at this point unless we have to. Details were discussed with her. I will see her tomorrow for followup. JAVY/MODL Voice ID: [id number] Report ID: [id number]
[2019-12-03] MEDS: COLLAGENASE 30 GM OINTMENT TOP SCH ×2 (05:09→09:00)
[2019-12-03 05:33] LABS: Absolute Lymphocytes (CBC) 1.4 K/uL (0.7-4.9); Basophils % 0.4 % (0-1.3); Hematocrit 31.2 % (36.0-45.0); Lymphocytes % 21.4 % (15.3-44.8); MPV 8.3 fL (7.6-11.3); RBC Red Blood Cell Count 3.48 M/uL (3.86-4.86)
[2019-12-03 05:40] LABS: Potassium 3.4 mmol/L (3.5-5.1)
[2019-12-03] MEDS: INSULIN -REGULAR HUMAN 50 UNIT/0.5 ML ML SQ SCH ×4 (07:30→20:04)
[2019-12-03] MEDS: ENOXAPARIN 30 MG/0.3 ML SQ SCH (08:42)
[2019-12-03] MEDS: OXYBUTYNIN CHLORIDE 5 MG TAB PO SCH (08:42)
[2019-12-03] MEDS: GLIMEPIRIDE 2 MG TABLET PO SCH ×2 (08:43→16:01)
[2019-12-03] MEDS: SITAGLIPTIN PHOS 100 MG TAB PO SCH (08:43)
[2019-12-03] MEDS: carvediloL 6.25 MG TAB PO SCH ×2 (08:43→20:14)
[2019-12-03] MEDS: MULTIVIT W/ MINERAL TAB PO SCH (08:43)
[2019-12-03] MEDS: GABAPENTIN 300 MG CAP PO SCH ×3 (08:43→20:14)
[2019-12-03] MEDS: MAGNESIUM OXIDE 400 MG TAB PO SCH (08:43)
[2019-12-03] MEDS: FLUOXETINE 20 MG CAP PO SCH (08:43)
[2019-12-03] MEDS: Levofloxacin 250mg IV 250 MG/50 ML BAG IV SCH (08:45)
[2019-12-03] MEDS: FERROUS SULFATE 325 MG TAB PO SCH (08:46)
[2019-12-03] MEDS: PNEUMOCOCCAL VACCINE 0.5 ML IMVAC ONE (08:55)
[2019-12-03] MEDS ORDERED: INFLUENZA VACCINE (for 3y+) 0.5 ML DOSE IMVAC ONE (09:00)
[2019-12-03] MEDS: FUROSEMIDE 40 MG TABLET PO SCH ×2 (10:24→16:01)
[2019-12-03] MEDS: LOSARTAN POTASSIUM 50 MG TABLET PO SCH (10:24)
[2019-12-03] MEDS: LOPERAMIDE HCL 2 MG CAPSULE PO PRN (16:00)
[2019-12-03] MEDS: CLOPIDOGREL 75 MG TABLET PO SCH (20:13)
[2019-12-03] MEDS: ASPIRIN 81 MG CHEWABLE TABLET PO SCH (20:14)
[2019-12-03] MEDS: ATORVASTATIN 20 MG TAB PO SCH (20:14)
[2019-12-03] MEDS: TRAZODONE 50 MG TABLET PO SCH (20:14)
--- NOTE | 2019-12-04 01:21 | PN ---
Date of Progress Note: 12/03/2019 Subjective: Patient was seen this morning for followup. She was lying in bed, not in distress. Objective: Vital Signs: Reviewed. HEENT: Unremarkable. Lungs: Clear to auscultation. Heart: Sounds normal. Abdomen: Soft. Bowel sounds normal. No guarding, rigidity, tenderness, or distention. Extremities: No leg edema. Right foot exam shows area of cellulitis of the right foot fourth toe, i s significantly better than before. Laboratory Data: Reviewed. Renal function is better today than yesterday. Impression: 1.Osteomyelitis, left foot second toe. 2.Cellulitis, right foot 4th toe. 3.Acute kidney injury. 4.Hypertension. 5.Diabetes mellitus. Plan: We will go ahead and continue current medications. Repeat blood work tomorrow morning. Wound culture is growing Staphylococcus aureus. Patient has a PICC line in place and she will need 6 week s of appropriate antibiotic therapy. JAVY/MODL Voice ID: [id number] Report ID: [id number]
[2019-12-04 05:41] LABS: Absolute Lymphocytes (CBC) 1.4 K/uL (0.7-4.9); Basophils % 0.4 % (0-1.3); Hematocrit 29.6 % (36.0-45.0); Lymphocytes % 18.1 % (15.3-44.8); MPV 8.2 fL (7.6-11.3); RBC Red Blood Cell Count 3.29 M/uL (3.86-4.86)
[2019-12-04 06:03] LABS: Magnesium 2.2 mg/dL (1.8-2.4); Potassium 3.6 mmol/L (3.5-5.1)
[2019-12-04] MEDS: INSULIN -REGULAR HUMAN 50 UNIT/0.5 ML ML SQ SCH ×4 (07:30→21:00)
[2019-12-04] MEDS ORDERED: CEFAZOLIN 2 GM in NA CHLORIDE 0.9% 100 ML IVPB SCH (08:00)
[2019-12-04] MEDS: ENOXAPARIN 30 MG/0.3 ML SQ SCH (10:14)
[2019-12-04] MEDS: FLUOXETINE 20 MG CAP PO SCH (10:15)
[2019-12-04] MEDS: GABAPENTIN 300 MG CAP PO SCH ×3 (10:15→21:36)
[2019-12-04] MEDS: CEFAZOLIN/SWI 2gm 2 GM/20 ML SYR IV SCH ×2 (10:15→21:36)
[2019-12-04] MEDS: MULTIVIT W/ MINERAL TAB PO SCH (10:15)
[2019-12-04] MEDS: MAGNESIUM OXIDE 400 MG TAB PO SCH (10:16)
[2019-12-04] MEDS: LOSARTAN POTASSIUM 50 MG TABLET PO SCH (10:16)
[2019-12-04] MEDS: GLIMEPIRIDE 2 MG TABLET PO SCH ×2 (10:16→16:51)
[2019-12-04] MEDS: FUROSEMIDE 40 MG TABLET PO SCH ×2 (10:16→16:51)
[2019-12-04] MEDS: carvediloL 6.25 MG TAB PO SCH ×2 (10:16→21:36)
[2019-12-04] MEDS: SITAGLIPTIN PHOS 100 MG TAB PO SCH (10:16)
[2019-12-04] MEDS: OXYBUTYNIN CHLORIDE 5 MG TAB PO SCH (10:17)
[2019-12-04] MEDS: FERROUS SULFATE 325 MG TAB PO SCH (10:18)
[2019-12-04] MEDS: COLLAGENASE 30 GM OINTMENT TOP SCH (10:20)
[2019-12-04 12:55] LABS: C.diff Antigen/Toxin Ag pos : Tox neg (NEG : NEG)
[2019-12-04] MEDS: ATORVASTATIN 20 MG TAB PO SCH (21:36)
[2019-12-04] MEDS: CLOPIDOGREL 75 MG TABLET PO SCH (21:36)
[2019-12-04] MEDS: TRAZODONE 50 MG TABLET PO SCH (21:36)
[2019-12-04] MEDS: ASPIRIN 81 MG CHEWABLE TABLET PO SCH (21:39)
--- NOTE | 2019-12-05 00:57 | PN ---
Date of Progress Note: 12/04/2019 Subjective: Patient was seen this morning for followup. No new complaints or problems reported by t he patient. Lying in bed, not in distress. Objective: Vital Signs: Reviewed. HEENT: Unremarkable. Lungs: Clear to auscultation. Heart: Heart sounds normal. Abdomen: Soft. Bowel sounds normal. No guarding, rigidity, tenderness, or distention. Extremities: Trace leg edema. Impression: 1.Osteomyelitis, left foot. 2.Hypertension. 3.Coronary artery disease. 4.Chronic kidney disease stage 3. 5.Diabetes mellitus. Plan: Continue current medications. We will go ahead and discontinue Levaquin, start her on cefazol in 2 g IV piggyback every 12 hours. Consult Social Service to make arrangements for 6 weeks of IV an tibiotic therapy at home. Possible discharge to go home tomorrow if home IV antibiotic arrangements get completed. JAVY/MODL Voice ID: [id number] Report ID: [id number]
[2019-12-05] MEDS: INSULIN -REGULAR HUMAN 50 UNIT/0.5 ML ML SQ SCH ×2 (07:30→11:30)
[2019-12-05] MEDS: LOSARTAN POTASSIUM 50 MG TABLET PO SCH (08:43)
[2019-12-05] MEDS: ENOXAPARIN 30 MG/0.3 ML SQ SCH (08:43)
[2019-12-05] MEDS: FLUOXETINE 20 MG CAP PO SCH (08:43)
[2019-12-05] MEDS: MULTIVIT W/ MINERAL TAB PO SCH (08:43)
[2019-12-05] MEDS: carvediloL 6.25 MG TAB PO SCH (08:44)
[2019-12-05] MEDS: MAGNESIUM OXIDE 400 MG TAB PO SCH (08:44)
[2019-12-05] MEDS: SITAGLIPTIN PHOS 100 MG TAB PO SCH (08:44)
[2019-12-05] MEDS: FUROSEMIDE 40 MG TABLET PO SCH (08:44)
[2019-12-05] MEDS: FERROUS SULFATE 325 MG TAB PO SCH (08:45)
[2019-12-05] MEDS: OXYBUTYNIN CHLORIDE 5 MG TAB PO SCH (08:45)
[2019-12-05] MEDS: GLIMEPIRIDE 2 MG TABLET PO SCH (08:45)
[2019-12-05] MEDS: GABAPENTIN 300 MG CAP PO SCH ×2 (08:45→14:25)
[2019-12-05] MEDS: CEFAZOLIN/SWI 2gm 2 GM/20 ML SYR IV SCH (08:46)
[2019-12-05] MEDS: COLLAGENASE 30 GM OINTMENT TOP SCH (08:47)
[2019-12-05] MEDS ORDERED: levoFLOXacin 500 MG TAB PO SCH (11:00)
[2019-12-05] MEDS: LOPERAMIDE HCL 2 MG CAPSULE PO PRN (11:56)
[2019-12-05 16:09] VITALS: O2SAT 98
[2019-12-05 16:39] VITALS: BP 158/76; TEMP 97.3
--- NOTE | 2019-12-06 04:02 | DS ---
Date of Discharge: 12/05/2019 Disposition: The patient will be discharged to go home. Physical Examination: HEENT: Unremarkable. Lungs: Clear to auscultation. Heart: Heart sounds normal. Abdomen: Soft, bowel sounds normal. No guarding, rigidity, tenderness, or distention. Extremities: Trace leg edema. Laboratory Data: Upon admission on 11/29/2019, white count 6.9, hemoglobin 12, platelets 232. Yeste rday, white count 7.7, hemoglobin 9.7, platelets 169. Yesterday, sodium 145, potassium 3.6, chloride 111, bicarb 29, BUN 37, creatinine 1.76, glucose 141, magnesium 2.2. Her highest creatinine during this hospital stay was 2.50, which was on 12/02/2019. Her initial creatinine when she came into the hospital was 1.27. Hospital Course: This is an 79-year-old pleasant female patient, admitted to the hospital when she c bud into emergency room with complaints of feeling weak, confused, drainage from left foot second toe . Please see dictated H and P, for more information. After patient was evaluated, she was admitted to the hospital with osteomyelitis of left foot second toe and cellulitis of right foot fourth toe. There was no evidence of urinary tract infection. She was started on empiric antibiotic, ceftriaxone and vancomycin. Within couple of days of vancomycin therapy, her creatinine went up from 1.27 to 2. 5, so we discontinued vancomycin and her creatinine came down to 1.7 today, which is closed to her ba phoebe. Her wound culture had grown staphylococcal aureus and this is not methicillin-resistant Stap hylococcus aureus. It is sensitive to cefazolin. So, we started that yesterday and on basis of crea tinine clearance, we have decided to give her 2 g IV piggyback every 12 hours for 6 weeks. Social Se [facility] was consulted for home IV antibiotic therapy. The patient would like to go home for this inste ad of going to facility. Details were discussed with the patient and her daughter. The patient's da ughter and patient's granddaughter will assist her with antibiotic administration. Dr. Mccullough was con sulted from General Surgery, did debridement of the left foot second toe and he will continue to see her on outpatient basis for followup. Arterial Doppler of lower extremity shows [id number] dis ease. No need for any surgical intervention. Patient has had some hypoxia during this hospitalizati on requiring oxygen around 2 L/minute and today when I started talking to her about making arrangemen ts for home oxygen she refuses to use any oxygen at home. Understands the importance of it as I expl ained it to her, but she does not want to use oxygen at all at home. Today, as I was reviewing her c morgan, she has second bacteria growing in her wound culture and it is Enterococcus faecalis, it is res istant to cefazolin, but sensitive to Levaquin and Cipro. So, we will start her on oral Cipro 500 mg p.o. daily for 30 days. Final Diagnoses: 1.Osteomyelitis, acute, left foot. 2.Cellulitis, right foot. 3.Chronic kidney disease, stage 3. 4.Acute kidney injury, likely secondary to vancomycin. 5.Anemia due to chronic kidney disease. 6.Diabetic neuropathy. 7.Osteoarthritis, multiple sites. 8.Hypertension. 9.Coronary artery disease. 10.Hyperlipidemia. Discharge Medications And Instructions: 1.Continue all prior home medications. 2.Cefazolin 2 g IV piggyback every 12 hours for 6 weeks. 3.Levaquin 500 mg p.o. for 30 days. 4.Home health nurse to assist the patient with dressing changes as per instruction from susannah Richardson IV antibiotic, flush PICC line per protocol, change PICC line dressing per protocol and remove PI CC line once 6 weeks of IV antibiotic therapy completed. 5.The patient to call my office next week to schedule followup appointment and patient to follow up with Dr. Mccullough as per his instruction. JAVY/MODL Voice ID: [id number] Report ID: [id number]
== END 2019-12-05 17:06 | disposition home health service (06) | DRG 638 ==
LOC: ER 14:24 → ERHOLD 20:31 → 4TH 22:14
PROVIDERS: ADMIT Internal Medicine; ATTEND Internal Medicine
DX: E11.69 Type 2 diabetes mellitus with other specified complication (principal); M86.172 Other acute osteomyelitis, left ankle and foot; L03.115 Cellulitis of right lower limb; I13.0 Hypertensive heart and chronic kidney disease with heart failure and stage 1 through stage 4 chronic kidney disease, or unspecified chronic kidney disease; B95.61 Methicillin susceptible Staphylococcus aureus infection as the cause of diseases classified elsewhere; N18.3 Chronic kidney disease, stage 3 (moderate); D63.1 Anemia in chronic kidney disease; E11.40 Type 2 diabetes mellitus with diabetic neuropathy, unspecified; I25.10 Atherosclerotic heart disease of native coronary artery without angina pectoris; M15.9 Polyosteoarthritis, unspecified; E78.5 Hyperlipidemia, unspecified; E11.628 Type 2 diabetes mellitus with other skin complications; N17.9 Acute kidney failure, unspecified; N14.1 Nephropathy induced by other drugs, medicaments and biological substances; T36.8X5A Adverse effect of other systemic antibiotics, initial encounter; D47.2 Monoclonal gammopathy; I50.9 Heart failure, unspecified; Z66 Do not resuscitate
CPT/HCPCS: 36415; 71045; 80048; 80076; 80202; 81003; 81015; 82947; 83605; 83735; 84145; 84484; 85025; 87040; 87045; 87046; 87070; 87077; 87086; 87088; 87176; 87186; 87205; 87324; 87449; 90471; 93005; 93925; 96374; 96375; 97116; 97161; 99285; J0690; J0696; J1650; J2405; J2543; J3590; J7030; J7040; Q2035

== ENCOUNTER 2022-05-07 08:27 | Emergency (ER) | payer OTHER, MEDICARE ==
[2022-05-07 09:37] LABS: Absolute Lymphocytes (CBC) 2.5 K/uL (0.7-4.9); Hematocrit 35.3 % (36.0-45.0); Lymphocytes % 38.6 % (15.3-44.8); MPV 7.5 fL (7.6-11.3)
[2022-05-07 09:59] LABS: Albumin 3.2 g/dL (3.4-5.0); Bilirubin Total 0.4 mg/dL (0.2-1.0); Potassium 3.4 mmol/L (3.5-5.1)
--- NOTE | 2022-05-07 10:09 | RAD REPORT ---
EXAM DESCRIPTION: CT - Stone Protocol - 05/07/2022 9:39 am CLINICAL HISTORY: Abdominal pain. Flank pain COMPARISON: 2017 and 2015 TECHNIQUE: Computed axial tomography of the abdomen pelvis was obtained without oral or IV contrast. Lack of IV and oral contrast limits evaluation of solid organs, bowel, appendix and vessels. Coronal reformatted images were obtained and reviewed. All CT scans are performed using dose optimization technique as appropriate and may include automated exposure control or mA/KV adjustment according to patient size. FINDINGS: A renal calculus is not seen. An ureteral calculus is not noted. A bladder calculus is not present. Multiple small gallstones. Gallbladder wall is not thickened. The liver, spleen, pancreas and adrenals appear grossly normal There is no evidence of diverticulitis. The appendix is not seen. No stranding adjacent cecum. Small umbilical hernia. Postsurgical changes involve spine. Degenerative changes noted 5 centimeter cystic mass left adnexa unchanged. Small umbilical hernia IMPRESSION: Negative for a genitourinary calculus 5 centimeters cystic mass left adnexal unchanged likely benign Cholelithiasis
[2022-05-07 11:11] LABS: Urine Blood Trace-lysed (Negative); Urine Glucose Negative (Negative); Urine Protein 3+ (Negative); Urine pH 7.5 (5.0-7.0)
--- NOTE | 2022-05-07 13:25 | RAD REPORT ---
EXAM DESCRIPTION: RAD - Femur Right - 05/07/2022 1:08 pm CLINICAL HISTORY: Leg pain FINDINGS: No fracture is seen. No bony abnormality is displayed Right knee prosthesis in good position
--- NOTE | 2022-05-07 13:26 | RAD REPORT ---
EXAM DESCRIPTION: RAD - Hip Right 2 View - 05/07/2022 1:08 pm CLINICAL HISTORY: Right hip pain FINDINGS: No fracture or dislocation is seen. The bones are osteoporotic. Mild osteoarthritis right hip
--- NOTE | 2022-05-07 13:33 | ER ---
Nurse's Notes [facility] Name: Tsering Osman Age: 82 yrs Sex: Female : 1940 Arrival Date: 05/07/2022 Time: 08:29 Bed 2 Private MD: Alexia Arellano C Diagnosis: Upper abdominal pain, unspecified;Other cholelithiasis without obstruction Presentation: 05/07 08:37 Chief complaint: Patient states: RLQ pain and pain to right thigh that began yesterday. aa5 Denies nausea/vomiting/diarrhea. Coronavirus screen: At this time, the client does not indicate any symptoms associated with coronavirus-19. Ebola Screen: No symptoms or risks identified at this time. Initial Sepsis Screen: Does the patient meet any 2 criteria? No. Patient's initial sepsis screen is negative. Does the patient have a suspected source of infection? No. Patient's initial sepsis screen is negative. Risk Assessment: Do you want to hurt yourself or someone else? Patient reports no desire to harm self or others. Onset of symptoms was April 2022. 08:37 Acuity: MANNIE 3 aa5 08:37 Method Of Arrival: Ambulatory aa5 Historical: - Allergies: 08:33 NKA; aa5 - PMHx: 08:33 Asthma; CHF; Hyperlipidemia; Diabetes - IDDM; Hypertension; neuropathy; aa5 - PSHx: 08:39 Heart stent; Back sx; R Knee Replacement; aa5 - Immunization history:: Adult Immunizations unknown. - Social history:: Smoking status: Patient denies any tobacco usage or history of. Screenin:30 Abuse screen: Denies threats or abuse. Denies injuries from another. Nutritional jl7 screening: No deficits noted. Tuberculosis screening: No symptoms or risk factors identified. Fall Risk. Assessment: 09:30 General: Appears in no apparent distress. uncomfortable, Behavior is calm, cooperative, jl7 appropriate for age. Pain: Complains of pain in right lower quadrant Pain currently is 6 out of 10 on a pain scale. Quality of pain is described as stabbing, Pain began 2-3 days ago. Is intermittent. Pain: Complains of pain in right quadriceps Pain currently is 9 out of 10 on a pain scale. Is continuous. Neuro: Level of Consciousness is awake, alert, obeys commands, Oriented to person, place, time, situation. Cardiovascular: Patient's skin is warm and dry. Respiratory: Airway is patent Respiratory effort is even, unlabored, Respiratory pattern is regular, symmetrical. GI: Abdomen is round non-distended, Bowel sounds present X 4 quads. Abd is soft X 4 quads Abdomen is tender to palpation in right lower quadrant Patient currently denies diarrhea, nausea, vomiting. Derm: Skin is pink, warm \T\ dry. 10:03 Reassessment: Dr Arellano at bedside. vg1 10:41 Reassessment: Patient appears in no apparent distress at this time. No changes from vg1 previously documented assessment. Patient and/or family updated on plan of care and expected duration. Pain level reassessed. Patient is alert, oriented x 3, equal unlabored respirations, skin warm/dry/pink. 12:00 Reassessment: Patient appears in no apparent distress at this time. No changes from jl7 previously documented assessment. Patient and/or family updated on plan of care and expected duration. Pain level reassessed. Patient is alert, oriented x 3, equal unlabored respirations, skin warm/dry/pink. 13:00 Reassessment: Patient appears in no apparent distress at this time. No changes from jl7 previously documented assessment. Patient and/or family updated on plan of care and expected duration. Pain level reassessed. Patient is alert, oriented x 3, equal unlabored respirations, skin warm/dry/pink. 13:30 Reassessment: Dr. Mitchell at bedside discussing results and POC. jl7 Vital Signs: 08:37 BP 156 / 72; Pulse 75; Resp 18 S; Temp 98.4(TE); Pulse Ox 90% on R/A; Weight 81.19 kg aa5 (R); Height 5 ft. 7 in. (170.18 cm) (R); 10:41 BP 200 / 90; Pulse 70; Resp 16; Pulse Ox 99% on R/A; vg1 11:26 BP 210 / 84 (man/); Pulse 70; Resp 15; Pulse Ox 94% on R/A; jl7 13:30 BP 170 / 74; Pulse 70; Resp 15; Pulse Ox 94% ; jl7 08:37 Body Mass Index 28.04 (81.19 kg, 170.18 cm) aa5 ED Course: 08:29 Patient arrived in ED. as 08:30 Alexia Arellano MD is Private Physician. as 08:33 Arm band placed on. aa5 08:36 Feliciano Mitchell MD is Attending Physician. kdr 08:38 Triage completed. aa5 08:44 Netta Velazquez, RN is Primary Nurse. jl7 09:10 Missed attempt(s): 20 gauge in right forearm. Bleeding controlled, band aid applied, jl7 catheter tip intact. 09:15 Missed attempt(s): 20 gauge in left antecubital area. Bleeding controlled, band aid jl7 applied, catheter tip intact. 09:20 Missed attempt(s): 22 gauge in left forearm. Bleeding controlled, band aid applied, jl7 catheter tip intact. 09:30 Patient has correct armband on for positive identification. Bed in low position. Call jl7 light in reach. Side rails up X2. Pulse ox on. NIBP on. Warm blanket given. 09:31 Initial lab(s) drawn, by ga, sent to lab. Missed attempt(s): 22 gauge in right wrist. vg1 Bleeding controlled, band aid applied, catheter tip intact. 09:40 CT Stone Protocol In Process Unspecified. EDMS 11:14 Urine collected: straight cath specimen, clear. Straight cath inserted, using sterile jl7 technique, 16 Fr. Returned clear yellow urine. 13:10 Hip Right 2 View XRAY In Process Unspecified. EDMS 13:10 Femur Right XRAY In Process Unspecified. EDMS 13:30 No provider procedures requiring assistance completed. Patient did not have IV access jl7 during this emergency room visit. 13:31 Alexia Arellano MD is Referral Physician. kdr Administered Medications: No medications were administered Medication: 11:14 VIS not applicable for this client. jl7 Outcome: 13:32 Discharge ordered by . kdr 13:55 Discharged to home via wheelchair, with family. jl7 13:55 Condition: stable 13:55 Discharge instructions given to patient, family, Instructed on discharge instructions, follow up and referral plans. medication usage, Demonstrated understanding of instructions, follow-up care, medications, Prescriptions given X 1. 13:55 Patient left the ED. jl7 Signatures: Dispatcher [employer] EDMS Feliciano Mitchell MD MD kdr Hortencia Rodriguez Audri, RN RN aa5 Netta Velazquez, CUCA RN jl7 Nunu Rosario RN RN vg1 Corrections: (The following items were deleted from the chart) 11:26 11:26 BP 210 / 84; Pulse 70bpm; Resp 15bpm; Pulse Ox 94% RA; codi kincaid
--- NOTE | 2022-05-07 13:33 | EDPHYS ---
Physician Documentation [facility] Name: Tsering Osman Age: 82 yrs Sex: Female : 1940 Arrival Date: 05/07/2022 Time: 08:29 Bed 2 Private MD: Alexia Arellano C ED Physician Feliciano Mitchell HPI: 05/07 09:23 This 82 yrs old Female presents to ER via Ambulatory with complaints of Leg Pain, kdr Abdominal Pain. 09:23 Patient complains of right anterior flank pain. Is been ongoing for couple of days. It kdr seems to get better yesterday but that has been worse overnight. The patient states she has been unable to sleep last night. She now complains of right flank pain. She has no other focal complaint. She does not appear toxic or to require immediate acute intervention at this time. Her daughter relates that she has had urinary tract infections in the past and that this normally resulted in altered mental status. She does not appear to have that presentation at this time. Onset: The symptoms/episode began/occurred gradually, 3 day(s) ago. Severity of symptoms: At their worst the symptoms were mild in the emergency department the symptoms are unchanged. The patient has not experienced similar symptoms in the past. The patient has not recently seen a physician. Historical: - Allergies: 08:33 NKA; aa5 - PMHx: 08:33 Asthma; CHF; Hyperlipidemia; Diabetes - IDDM; Hypertension; neuropathy; aa5 - PSHx: 08:39 Heart stent; Back sx; R Knee Replacement; aa5 - Immunization history:: Adult Immunizations unknown. - Social history:: Smoking status: Patient denies any tobacco usage or history of. ROS: 09:23 Constitutional: Negative for fever, chills, and weight loss, Eyes: Negative for injury, kdr pain, redness, and discharge, ENT: Negative for injury, pain, and discharge, Neck: Negative for injury, pain, and swelling, Cardiovascular: Negative for chest pain, palpitations, and edema, Respiratory: Negative for shortness of breath, cough, wheezing, and pleuritic chest pain, Back: Negative for injury and pain, : Negative for injury, bleeding, discharge, and swelling, MS/Extremity: Negative for injury and deformity, Skin: Negative for injury, rash, and discoloration, Neuro: Negative for headache, weakness, numbness, tingling, and seizure activity. Psych: Negative for depression, anxiety, suicide ideation, homicidal ideation, and hallucinations, Allergy/Immunology: Negative for hives, rash, and allergies, Endocrine: Negative for neck swelling, polydipsia, polyuria, polyphagia, and marked weight changes, Hematologic/Lymphatic: Negative for swollen nodes, abnormal bleeding, and unusual bruising. 09:23 Abdomen/GI: Positive for abdominal pain, nausea, of the anterior aspect of right lateral abdomen. Exam: 09:23 Constitutional: This is a well developed, well nourished patient who is awake, alert, kdr and in no acute distress. Head/Face: Normocephalic, atraumatic. Eyes: Pupils equal round and reactive to light, extra-ocular motions intact. Lids and lashes normal. Conjunctiva and sclera are non-icteric and not injected. Cornea within normal limits. Periorbital areas with no swelling, redness, or edema. Neck: Trachea midline, no thyromegaly or masses palpated, and no cervical lymphadenopathy. Supple, full range of motion without nuchal rigidity, or vertebral point tenderness. No Meningismus. Chest/axilla: Normal chest wall appearance and motion. Nontender with no deformity. No lesions are appreciated. Cardiovascular: Regular rate and rhythm with a normal S1 and S2. No gallops, murmurs, or rubs. Normal PMI, no JVD. No pulse deficits. Respiratory: Lungs have equal breath sounds bilaterally, clear to auscultation and percussion. No rales, rhonchi or wheezes noted. No increased work of breathing, no retractions or nasal flaring. Back: No spinal tenderness. No costovertebral tenderness. Full range of motion. Skin: Warm, dry with normal turgor. Normal color with no rashes, no lesions, and no evidence of cellulitis. MS/ Extremity: Pulses equal, no cyanosis. Neurovascular intact. Full, normal range of motion. Neuro: Awake and alert, GCS 15, oriented to person, place, time, and situation. Cranial nerves II-XII grossly intact. Motor strength 5/5 in all extremities. Sensory grossly intact. Cerebellar exam normal. Normal gait. Psych: Awake, alert, with orientation to person, place and time. Behavior, mood, and affect are within normal limits. 09:23 Abdomen/GI: Inspection: obese Bowel sounds: normal, active, Palpation: soft, mild abdominal tenderness. Vital Signs: 08:37 BP 156 / 72; Pulse 75; Resp 18 S; Temp 98.4(TE); Pulse Ox 90% on R/A; Weight 81.19 kg aa5 (R); Height 5 ft. 7 in. (170.18 cm) (R); 10:41 BP 200 / 90; Pulse 70; Resp 16; Pulse Ox 99% on R/A; vg1 11:26 BP 210 / 84 (man/); Pulse 70; Resp 15; Pulse Ox 94% on R/A; jl7 13:30 BP 170 / 74; Pulse 70; Resp 15; Pulse Ox 94% ; jl7 08:37 Body Mass Index 28.04 (81.19 kg, 170.18 cm) aa5 MDM: 09:23 Data reviewed: vital signs, nurses notes, lab test result(s), radiologic studies. kdr Counseling: I had a detailed discussion with the patient and/or guardian regarding: lab results, radiology results, the need for outpatient follow up. 13:32 Patient medically screened. [facility] 05/07 08:56 Order name: CBC with Diff; Complete Time: 11:03 [facility] 05/07 08:56 Order name: CMP; Complete Time: 11:03 [facility] 05/07 08:56 Order name: Lipase; Complete Time: 11:03 [facility] 05/07 08:56 Order name: Urine Culture [facility] 05/07 11:12 Order name: Urine Dipstick-Ancillary; Complete Time: 11:14 [facility] 05/07 11:25 Order name: SARS-COV-2 RT PCR (Document "Date of Onset" if Symptomatic); Complete Time: eb 12:34 05/07 08:56 Order name: Labs collected and sent; Complete Time: 09:54 kdr 05/07 08:56 Order name: Urine Dipstick-Ancillary (obtain specimen); Complete Time: 11:15 kdr 05/07 08:56 Order name: CT Stone Protocol; Complete Time: 11:03 kdr 05/07 11:36 Order name: Hip Right 2 View XRAY; Complete Time: 13:27 kdr 05/07 11:36 Order name: Femur Right XRAY; Complete Time: 13:27 kdr Administered Medications: No medications were administered Disposition Summary: 05/07/22 13:32 Discharge Ordered Location: Home kdr Problem: new kdr Symptoms: have improved kdr Condition: Stable kdr Diagnosis - Upper abdominal pain, unspecified kdr - Other cholelithiasis without obstruction kdr Followup: kdr - With: Alexia Arellano MD - When: 2 - 3 days - Reason: If symptoms return, Further diagnostic work-up, Recheck today's complaints, Continuance of care, Re-evaluation by your physician Discharge Instructions: - Discharge Summary Sheet kdr - Cholelithiasis, [id number] kdr - Hip Pain kdr Forms: - Medication Reconciliation Form kdr - Thank You Letter kdr - Prescription Opioid Use kdr Prescriptions: - Tramadol 50 mg Oral Tablet - take 1 tablet by ORAL route every 8 hours As needed as needed; 12 tablet; kdr Refills: 0, Product Selection Permitted Signatures: Dispatcher [employer] Feliciano Lomax MD MD kdr Sameera Elliott, RN RN aa5
[2022-05-07 14:16] VITALS: TEMP 98.4
[2022-05-07 14:20] VITALS: O2SAT 94
[2022-05-07 14:21] VITALS: BP 170/74
== END 2022-05-07 13:55 | disposition home or self-care (01) ==
LOC: ER 08:27
DX: K80.80 Other cholelithiasis without obstruction (principal); E11.9 Type 2 diabetes mellitus without complications; I10 Essential (primary) hypertension; I50.9 Heart failure, unspecified; Z20.822 Contact with and (suspected) exposure to COVID-19; Z95.818 Presence of other cardiac implants and grafts
CPT/HCPCS: 87088; 85025; 87086; 36415; 81003; 83690; 80053; 76377; 74176; 73502; 73552; 51702; 99284; U0003; 87077; 87186

== ENCOUNTER 2022-06-24 19:01 | Inpatient (IN) | payer OTHER, MEDICARE ==
[2022-06-24] MEDS ORDERED: FUROSEMIDE 40 MG/4 ML VIAL ONE (19:26)
[2022-06-24] MEDS ORDERED: LEVALBUTEROL 1.25 MG/3 ML NEB ONE (19:26)
[2022-06-24 19:38] LABS: Hematocrit 31.7 % (36.0-45.0); Lymphocytes % 28.5 % (15.3-44.8); MCV 87.6 fL (80-100); MPV 6.6 fL (7.6-11.3); RBC Red Blood Cell Count 3.62 M/uL (3.86-4.86)
[2022-06-24 19:40] LABS: Protime INR 1.05
[2022-06-24 19:56] LABS: Albumin 3.3 g/dL (3.4-5.0); Bilirubin Direct 0.2 mg/dL (0-0.2); Bilirubin Total 0.5 mg/dL (0.2-1.0); Magnesium 2.5 mg/dL (1.8-2.4); Potassium 4.1 mmol/L (3.5-5.1); Protein, Total 7.1 g/dL (6.4-8.2); Troponin High Sensitivity 15.5 pg/mL (<58.9)
[2022-06-24 20:21] LABS: SARS-CoV-2 Antigen Rapid Res Negative (Negative)
--- NOTE | 2022-06-24 20:27 | RAD REPORT ---
EXAM DESCRIPTION: Lazarus Single View06/24/2022 7:47 pm CLINICAL HISTORY: Shortness of breath COMPARISON: 2019 FINDINGS: Mild bilateral pulmonary opacities. Heart is borderline enlarged IMPRESSION: Mild CHF suspected
--- NOTE | 2022-06-24 22:05 | ER ---
Nurse's Notes [facility] Name: Tsering Osman Age: 82 yrs Sex: Female : 1940 Arrival Date: 06/24/2022 Time: 19:03 Bed 25 Private MD: Diagnosis: Acute on chronic congestive heart failure exacerbation;Hyponatremia Presentation: 06/24 19:04 Chief complaint: Patient states: shortness of breath. Coronavirus screen: Vaccine rivera status: Patient reports receiving the 2nd dose of the covid vaccine. Ebola Screen: Patient denies travel to an Ebola-affected area in the 21 days before illness onset. Initial Sepsis Screen: Does the patient meet any 2 criteria? No. Patient's initial sepsis screen is negative. Does the patient have a suspected source of infection? No. Patient's initial sepsis screen is negative. Risk Assessment: Do you want to hurt yourself or someone else? Patient reports no desire to harm self or others. Onset of symptoms was June 24, 2022. 19:04 Method Of Arrival: EMS: [facility] rivera 19:04 Acuity: MANNIE 3 rivera Triage Assessment: 19:05 General: Appears in no apparent distress. Behavior is calm, cooperative. Pain: Denies rivera pain. Historical: - Allergies: 19:05 NKA; rivera - Home Meds: 19:05 aspirin 81 mg Oral chew 1 tab once daily [Active]; atorvastatin 20 mg Oral tab 1 tab rivera nightly [Active]; Centrum Silver Oral daily [Active]; Coreg 6.25 mg Oral tab 1 tab 2 times per day [Active]; ferrous sulfate 325 mg (65 mg iron) Oral tab 2 tab daily [Active]; Flovent Inhl 100 mcg twice a day [Active]; furosemide 40 mg Oral tab 1 tab 2 times per day [Active]; gabapentin 300 mg Oral cap 3 times per day [Active]; glimepiride 4 mg Oral tab 1 tab twice a day [Active]; insulin [Active]; magnesium oxide 400 mg Oral tab 400 mg daily [Active]; Onglyza 5 mg Oral tab 1 tab once daily [Active]; Oxybutynin Chloride Oral 1 tab once daily [Active]; Plavix 75 mg Oral tab 1 tab once daily [Active]; trazodone 50 mg Oral tab nightly [Active]; Ventolin HFA 90 mcg/actuation Nebulizer HFAA 2 puffs Q4H prn [Active]; - PMHx: 19:05 Asthma; CHF; Diabetes - IDDM; Hyperlipidemia; Hypertension; neuropathy; rivera - PSHx: 19:05 back sx; heart stent; R knee replacement; rivera - Immunization history:: Adult Immunizations up to date. - Social history:: Smoking status: Patient denies any tobacco usage or history of. Screenin:35 Abuse screen: Denies threats or abuse. Nutritional screening: No deficits noted. ll3 Tuberculosis screening: No symptoms or risk factors identified. Fall Risk No fall in past 12 months (0 pts). No secondary diagnosis (0 pts). IV access (20 points). Ambulatory Aid- Crutches/Cane/Walker (15 pts). Gait- Weak (10 pts.). Mental Status- Oriented to own ability (0 pts). Total Handy Fall Scale indicates Low Risk Score (25-44 pts). Fall prevention measures have been instituted. Side Rails Up X 2 Placed close to Nursing Station Frequent Obs/Assesments occuring Family Present and informed to notify staff if they need to leave bedside As available Patient and Family Educated on Fall Prevention Program and strategies. Assessment: 19:34 General: Appears uncomfortable, Behavior is cooperative, anxious. Pain: Denies pain. ll3 Neuro: Level of Consciousness is awake, alert, obeys commands, Oriented to person, place, time, situation. Respiratory: Reports shortness of breath since last week, progressively gotten worse Respiratory effort is labored, Respiratory pattern is regular, symmetrical. Derm: Skin is pink, warm \T\ dry. 20:37 Reassessment: No changes from previously documented assessment. Patient and/or family ll3 updated on plan of care and expected duration. Pain level reassessed. Patient is alert, oriented x 3, equal unlabored respirations, skin warm/dry/pink. 22:04 Reassessment: No changes from previously documented assessment. Patient and/or family ll3 updated on plan of care and expected duration. Pain level reassessed. Patient is alert, oriented x 3, equal unlabored respirations, skin warm/dry/pink. 23:26 Reassessment: Patient and/or family updated on plan of care and expected duration. Pain ll3 level reassessed. Patient is alert, oriented x 3, equal unlabored respirations, skin warm/dry/pink. 23:26 Reassessment: RT at bedside, pt placed on high flow O2, tolerated well. 3 06/25 00:25 Reassessment: No changes from previously documented assessment. Patient and/or family 3 updated on plan of care and expected duration. Pain level reassessed. Patient is alert, oriented x 3, equal unlabored respirations, skin warm/dry/pink. Vital Signs: 06/24 19:04 BP 148 / 70; Pulse 77; Resp 18; Temp 98.6(T); Pulse Ox 86% on R/A; Weight 81.65 kg; rivera Height 5 ft. 6 in. (167.64 cm); 20:37 BP 147 / 64; Pulse 79; Resp 18; Pulse Ox 84% on 4 lpm NC; ll3 22:04 BP 138 / 55; Pulse 73; Resp 20; Pulse Ox 88% on 4 lpm NC; 3 23:26 BP 143 / 51; Pulse 75; Resp 18; Pulse Ox 97% ; ll3 06/25 00:25 BP 133 / 92; Pulse 75; Resp 17; Pulse Ox 98% on NC; ll3 06/24 19:04 Body Mass Index 29.05 (81.65 kg, 167.64 cm) ED Course: 06/24 19:03 Patient arrived in ED. 19:05 Triage completed. 19:05 Arm band placed on. 19:12 Wade Montalvo PA is [facility] 19:12 Feliciano Mitchell MD is Attending Physician. [facility] 19:23 Patient has correct armband on for positive identification. Bed in low position. Call [facility] light in reach. Side rails up X 1. Adult w/ patient. Warm blanket given. Pillow given. radiographer mammographer on. Pulse ox on. NIBP on. 19:23 EKG done, by ED staff, reviewed by Wade ZHANG. [facility] 19:34 Inserted saline lock: 22 gauge in right forearm, using aseptic technique. Blood ds4 collected. 19:49 XRAY Chest (1 view) In Process Unspecified. EDMS 20:37 Sharon Leblanc RN is Primary Nurse. [facility] 22:04 Alexia Arellano MD is Hospitalizing Provider. [facility] 06/25 00:43 No provider procedures requiring assistance completed. Patient admitted, IV remains in ll3 place. Administered Medications: 06/24 19:21 Drug: Xopenex (levalbuterol) (3) 1.25 mg Route: Inhalation; ll3 20:34 Follow up: Response: No adverse reaction ll3 19:32 Drug: Lasix (furosemide) 40 mg Route: IVP; Site: right forearm; ll3 20:34 Follow up: Response: No adverse reaction 3 22:03 Drug: SOLU-Medrol (methylPrednisoLONE) 125 mg Route: IVP; Site: right forearm; ll3 23:32 Follow up: Response: No adverse reaction 3 Medication: 23:27 VIS not applicable for this client. 3 Outcome: 22:04 Decision to Hospitalize by Provider. [facility] 06/25 00:43 Admitted to Med/surg accompanied by nurse, via stretcher, room 218, with oxygen, with 3 chart, Report called to [facility] Condition: stable Discharge instructions given to patient, Instructed on the need for admit, Demonstrated understanding of instructions. 00:44 Patient left the ED. 3 Signatures: Dispatcher [employer] EDMS Wade Montalvo PA PA jmm Swanson, Donovan 4 Irlanda Rodriguez Sharon Aguirre RN RN 3 Shana Moon RN RN rivera
--- NOTE | 2022-06-24 22:05 | EDPHYS ---
Physician Documentation [facility] Name: Tsering Osman Age: 82 yrs Sex: Female : 1940 Arrival Date: 06/24/2022 Time: 19:03 Bed 25 Private MD: ED Physician Feliciano Mitchell HPI: 06/24 22:01 This 82 yrs old Female presents to ER via EMS with complaints of Shortness of breath. [facility] 22:01 Onset: The symptoms/episode began/occurred gradually, 1 week(s) ago. Is an 82-year-old [facility] female with history of diabetes mellitus, asthma, hyperlipidemia, hypertension, CHF the presents emerged part with complaints of progressively worsening shortness of breath over the past week. Patient arrived via EMS stating that O2 was 84% on room air. Patient normally is around 90% on room air. Per family. Patient denies chest pain, abdominal pain, fever. Historical: - Allergies: 19:05 NKA; rivera - Home Meds: 19:05 aspirin 81 mg Oral chew 1 tab once daily [Active]; atorvastatin 20 mg Oral tab 1 tab rivera nightly [Active]; Centrum Silver Oral daily [Active]; Coreg 6.25 mg Oral tab 1 tab 2 times per day [Active]; ferrous sulfate 325 mg (65 mg iron) Oral tab 2 tab daily [Active]; Flovent Inhl 100 mcg twice a day [Active]; furosemide 40 mg Oral tab 1 tab 2 times per day [Active]; gabapentin 300 mg Oral cap 3 times per day [Active]; glimepiride 4 mg Oral tab 1 tab twice a day [Active]; insulin [Active]; magnesium oxide 400 mg Oral tab 400 mg daily [Active]; Onglyza 5 mg Oral tab 1 tab once daily [Active]; Oxybutynin Chloride Oral 1 tab once daily [Active]; Plavix 75 mg Oral tab 1 tab once daily [Active]; trazodone 50 mg Oral tab nightly [Active]; Ventolin HFA 90 mcg/actuation Nebulizer HFAA 2 puffs Q4H prn [Active]; - PMHx: 19:05 Asthma; CHF; Diabetes - IDDM; Hyperlipidemia; Hypertension; neuropathy; rivera - PSHx: 19:05 back sx; heart stent; R knee replacement; rivera - Immunization history:: Adult Immunizations up to date. - Social history:: Smoking status: Patient denies any tobacco usage or history of. ROS: 22:01 Constitutional: Negative for fever, chills, and weight loss, Cardiovascular: Negative [facility] for chest pain, palpitations, and edema. 22:01 Respiratory: Positive for shortness of breath. 22:01 All other systems are negative. Exam: 22:01 Constitutional: This is a well developed, well nourished patient who is awake, alert, jmm and in no acute distress. Head/Face: atraumatic. Eyes: EOMI, no conjunctival erythema appreciated ENT: Moist Mucus Membranes Neck: Trachea midline, Supple Chest/axilla: Normal chest wall appearance and motion. 22:01 Abdomen/GI: Non distended Back: Normal ROM Skin: General appearance color normal Neuro: Awake and alert Psych: Behavior is normal, Mood is normal, Patient is cooperative and pleasant 22:01 Cardiovascular: Rate: normal, Rhythm: regular. 22:01 Respiratory: the patient does not display signs of respiratory distress, Respirations: normal, Breath sounds: wheezing: is scattered. 22:01 Musculoskeletal/extremity: Edema noted to the legs bilaterally. Vital Signs: 19:04 BP 148 / 70; Pulse 77; Resp 18; Temp 98.6(T); Pulse Ox 86% on R/A; Weight 81.65 kg; rivera Height 5 ft. 6 in. (167.64 cm); 20:37 BP 147 / 64; Pulse 79; Resp 18; Pulse Ox 84% on 4 lpm NC; ll3 22:04 BP 138 / 55; Pulse 73; Resp 20; Pulse Ox 88% on 4 lpm NC; ll3 23:26 BP 143 / 51; Pulse 75; Resp 18; Pulse Ox 97% ; ll3 06/25 00:25 BP 133 / 92; Pulse 75; Resp 17; Pulse Ox 98% on NC; ll3 06/24 19:04 Body Mass Index 29.05 (81.65 kg, 167.64 cm) rivera MDM: 06/24 19:15 Patient medically screened. [facility] 22:03 Data reviewed: vital signs, nurses notes. Counseling: I had a detailed discussion with [facility] the patient and/or guardian regarding: the historical points, exam findings, and any diagnostic results supporting the discharge/admit diagnosis, lab results, the need for further work-up and treatment in the hospital. ED course: I discussed the patient with Dr. Arellano whom accepted the patient to his service did not recommend any labs.. 23:20 ED course: I discussed the patient with her family who states that the patient is jmm normally around 90% on room air at home. Will oxygenate with a goal of 90%.. 06/24 19:13 Order name: Basic Metabolic Panel; Complete Time: 19:58 06/24 19:13 Order name: CBC with Diff; Complete Time: 19:41 06/24 19:13 Order name: LFT's; Complete Time: :58 06/24 19:13 Order name: Magnesium; Complete Time: :58 06/24 19:13 Order name: NT PRO-BNP; Complete Time: :58 06/24 19:13 Order name: PT-INR; Complete Time: 19:41 06/24 19:13 Order name: Troponin HS; Complete Time: :58 06/24 19:13 Order name: XRAY Chest (1 view); Complete Time: 20:46 06/24 19:13 Order name: EKG; Complete Time: 19:15 06/24 19:13 Order name: Cardiac monitoring; Complete Time: 19:23 06/24 19:14 Order name: SARS RAPID; Complete Time: 20:24 06/24 19:13 Order name: EKG - Nurse/Tech; Complete Time: 19:21 06/24 19:13 Order name: IV Saline Lock; Complete Time: 19:31 06/24 19:13 Order name: Labs collected and sent; Complete Time: 19:31 06/24 19:13 Order name: O2 Per Protocol; Complete Time: 19:21 06/24 19:13 Order name: O2 Sat Monitoring; Complete Time: 19:21 jmm Administered Medications: 19:21 Drug: Xopenex (levalbuterol) (3) 1.25 mg Route: Inhalation; ll3 20:34 Follow up: Response: No adverse reaction ll3 19:32 Drug: Lasix (furosemide) 40 mg Route: IVP; Site: right forearm; ll3 20:34 Follow up: Response: No adverse reaction ll3 22:03 Drug: SOLU-Medrol (methylPrednisoLONE) 125 mg Route: IVP; Site: right forearm; ll3 23:32 Follow up: Response: No adverse reaction ll3 Disposition: 06/25 04:00 Co-signature as Attending Physician, Feliciano Mitchell MD I agree with the assessment and kdr plan of care. Disposition Summary: 06/24/22 22:04 Hospitalization Ordered Hospitalization Status: Inpatient Admission [facility] Provider: Alexia Arellano Location: Telemetry/MedSur (Inpatient) jm Condition: Stable jmm Problem: new jmm Symptoms: have improved jmm Bed/Room Type: Standard [facility] Room Assignment: 218(06/24/22 23:25) tw5 Diagnosis - Acute on chronic congestive heart failure exacerbation jmm - Hyponatremia [facility] Forms: - Medication Reconciliation Form jmm - SBAR form [facility] Signatures: Dispatcher [employer] EDFeliciano Laura MD MD [facility] Wade Montalvo PA PA [facility] Nora Rubi tw5 Sharon Leblanc RN RN [facility] Shana Moon RN RN Corrections: (The following items were deleted from the chart) 06/24 23:25 22:04 [facility] tw5
[2022-06-24] MEDS ORDERED: METHYLPREDNISOLONE 125 MG INJ ONE (22:07)
[2022-06-24] MEDS: ALBUTEROL 2.5 MG/3 ML NEB SOL NEB SCH (23:00)
[2022-06-24] MEDS ORDERED: ALBUTEROL 2.5 MG/3 ML NEB SOL ONE (23:14)
[2022-06-24] MEDS ORDERED: ACETAMINOPHEN 500 MG TAB PO PRN (23:21)
[2022-06-25] MEDS: ALBUTEROL 2.5 MG/3 ML NEB SOL NEB SCH ×6 (03:35→23:20)
[2022-06-25] MEDS ORDERED: D50W 25 GM/50 ML SYRINGE IV PRN (08:32)
[2022-06-25] MEDS ORDERED: GLUCAGON 1 MG/VIAL IM PRN (08:32)
[2022-06-25] MEDS ORDERED: D10W 125 ML IV PRN (08:54)
[2022-06-25] MEDS ORDERED: GABAPENTIN 300 MG CAP PO SCH (09:00)
[2022-06-25] MEDS: INSULIN GLARGINE 100 UNIT/ML SQ SCH (09:00)
[2022-06-25] MEDS ORDERED: FUROSEMIDE 40 MG/4 ML VIAL IV SCH (09:00)
[2022-06-25 09:34] LABS: Magnesium 2.4 mg/dL (1.8-2.4)
[2022-06-25 10:00] LABS: Thyroid Stimulating Hormone 4.49 uIU/mL (0.360-3.740)
[2022-06-25] MEDS: LOSARTAN POTASSIUM 50 MG TABLET PO SCH (10:31)
[2022-06-25] MEDS: FLUOXETINE 20 MG CAP PO SCH (10:32)
[2022-06-25] MEDS: HEPARIN 5000 UNIT/ML 1 ML VIAL SQ SCH ×2 (10:32→20:53)
[2022-06-25] MEDS: CLOPIDOGREL 75 MG TABLET PO SCH (10:32)
[2022-06-25] MEDS: carvediloL 12.5 MG TAB PO SCH ×2 (10:32→16:46)
[2022-06-25] MEDS: FUROSEMIDE 40 MG/4 ML VIAL IV SCH ×2 (10:32→20:53)
[2022-06-25] MEDS: MAGNESIUM OXIDE 400 MG TAB PO SCH (10:33)
[2022-06-25] MEDS: AMLODIPINE 5 MG TAB PO SCH (10:33)
[2022-06-25] MEDS: OXYBUTYNIN CHLORIDE 5 MG TAB PO SCH (10:35)
[2022-06-25] MEDS: INSULIN -REGULAR HUMAN 50 UNIT/0.5 ML ML SQ SCH ×3 (11:30→20:54)
[2022-06-25] MEDS ORDERED: GABAPENTIN 400 MG CAP PO SCH (14:00)
[2022-06-25] MEDS: GABAPENTIN 400 MG CAP PO SCH ×2 (16:55→20:53)
[2022-06-25] MEDS: ATORVASTATIN 20 MG TAB PO SCH (20:53)
[2022-06-25] MEDS: DIPHENHYDRAMINE 25 MG TAB/CAP PO PRN (20:53)
[2022-06-26 03:26] LABS: Hematocrit 28.5 % (36.0-45.0); MCV 87.7 fL (80-100); MPV 6.6 fL (7.6-11.3); RBC Red Blood Cell Count 3.25 M/uL (3.86-4.86)
[2022-06-26 03:33] LABS: Magnesium 2.3 mg/dL (1.8-2.4); Potassium 3.5 mmol/L (3.5-5.1)
[2022-06-26] MEDS: ALBUTEROL 2.5 MG/3 ML NEB SOL NEB SCH ×5 (04:00→20:05)
[2022-06-26] MEDS: LEVOTHYROXINE SOD 0.088 MG TAB PO SCH (06:07)
--- NOTE | 2022-06-26 06:29 | HP ---
Date of Admission: 06/24/2022 Chief Complaint: Shortness of breath and pain in both feet. History Of Present Illness: This is an 82-year-old female patient, who came in to see me on 06/20/2022 with her daughter. At that time, the patient reported that she was having increasing shortness of breath at nighttime lately and she did gain significant amount of weight over last 1 month, almost 23 pounds weight gain. She was recommended to come to hospital for admission, but she did not want to do so, so we adjusted her medications and asked her to come see me in 2 weeks. She was taking metolazone 2.5 mg once a week, instead of that, I advised her to take it 2 times a week and yesterday evening, she came to our hospital emergency room because of shortness of breath and pain in both feet. The patient says that day after she saw me, she was feeling fine, but as of night, she started to have the shortness of breath at nighttime again. Denies any chest pain. Allergies: NO KNOWN ALLERGIES. Review of Systems: Cardiovascular: As mentioned above. Neurology: As mentioned above. All other systems reviewed and negative. Medications: Albuterol inhaler 2 puffs every 4 hours as needed for shortness of breath, amlodipine 5 mg daily, aspirin 81 mg daily, clopidogrel 75 mg daily, atorvastatin 20 mg in the evening, carvedilol 12.5 mg takes 1-1/2 tablet 2 times a day, fluoxetine 40 mg daily, furosemide 40 mg, she takes 2 tablets in the morning and 1 tablet in the evening, gabapentin 300 mg 3 times a day, glimepiride 4 mg half a tablet in the morning with breakfast, Toujeo 25 units subcutaneous injection daily, levothyroxine 88 mcg daily, losartan 100 mg p.o. daily, magnesium oxide 400 mg daily, metolazone 2.5 mg 2 times a week, and oxybutynin 5 mg daily. Past Medical History: Significant for peripheral neuropathy due to diabetes, allergic rhinitis, type 2 diabetes mellitus, asthma, pulmonary hypertension, chronic systolic heart failure, coronary artery disease, hypertension, hyperlipidemia, chronic kidney disease, osteoarthritis at multiple sites, hypomagnesemia, anemia, monoclonal gammopathy of unknown significance, depression, and osteopenia. Past Surgical History: Hysterectomy, back surgery, knee surgery. Family History: Mother had lung cancer. Social History: Negative for smoking, alcohol use. Physical Examination: Vital Signs: Temperature 98.1, pulse 84, respiratory rate 18, blood pressure 140/60, oxygen saturation 95%. General: Awake, alert, oriented, not in distress. HEENT: Head atraumatic, normocephalic. Conjunctivae nonerythematous. Sclerae white. Mouth, no thrush or edema noted. Ears/Nose, no mass, lesion, discharge noted. Neck: Supple. No JVD, lymph nodes, bruit, thyromegaly noted. Lungs: Lung examination shows presence of rales noted in both lower lung eckert. Not using any accessory muscles of respiration. Heart: Normal heart sounds, no murmur or gallop. Abdomen: Soft, bowel sounds normal. No guarding, rigidity, tenderness, mass, hepatosplenomegaly, distention, or bruit noted. Extremities: Bilateral leg edema Skin: No rash, ulcer, cellulitis. Lymphatics: No lymph node enlargement in neck, supraclavicular, infraclavicular region. Neuro: No focal neurological deficit. Chest: Unremarkable. External Genitalia: Deferred. Rectal: Deferred. Laboratory Data: White count 7, hemoglobin 11, platelets 253. Sodium 120, potassium 4.1, chloride 85, bicarb 26, BUN 42, creatinine 1.62, glucose 79. Liver function tests unremarkable. ProBNP 1845. COVID-19 test negative. Troponin 15.5. Chest x-ray shows changes of congestive heart failure. Impression: 1. Congestive heart failure, chronic, systolic, with acute exacerbation. 2. Hyponatremia. 3. Diabetic neuropathy. 4. Anemia, chronic, unspecified. 5. Hypertension. 6. Hyperlipidemia. 7. Coronary artery disease. 8. Type 2 diabetes mellitus. 9. Hypomagnesemia. 10. Hyperlipidemia. 11. Hypothyroidism. Plan: We will go ahead and admit the patient to hospital for further evaluation and management of this problem. The patient is appropriate for inpatient and is expected to spend 2 midnights in hospital. We will continue antihypertensive medications per order, continue cholesterol medication per order. The patient takes levothyroxine 88 mcg daily at home, which will be continued. We will monitor electrolyte, renal function, and continue magnesium replacement per order. The patient received 1 dose of Lasix 40 mg IV in the emergency room last night when I was contacted and starting today we will give Lasix 40 mg IV every 12 hours. Monitor intake, output, daily weight, and I will see her tomorrow for followup. We will consult Physical Therapy to help ambulate the patient. I did communicate with her regarding advance directives and she clearly states that in the event of cardiopulmonary arrest, she does not want any heroic measures like CPR, defibrillation, or ventilator support and as per the patient's decision do not resuscitate order was placed in the chart. We will get blood work done today and monitor that, get TSH done as well. Tomorrow, we will get echo with Doppler to evaluate left ventricular ejection fraction. At home, she takes gabapentin 300 mg 3 times a day. We will increase dose to 400 mg 3 times a day considering her diabetic neuropathy symptoms. Plan of treatment discussed with her. I will see her tomorrow for followup. JAVY/BRAULIO Voice ID: [id number] MTDD
[2022-06-26] MEDS: INSULIN -REGULAR HUMAN 50 UNIT/0.5 ML ML SQ SCH ×4 (07:30→20:05)
[2022-06-26] MEDS: INSULIN GLARGINE 100 UNIT/ML SQ SCH (09:00)
[2022-06-26] MEDS ORDERED: POTASSIUM CL SA 10 MEQ TAB PO ONE (09:00)
[2022-06-26] MEDS: HEPARIN 5000 UNIT/ML 1 ML VIAL SQ SCH ×2 (09:14→20:01)
[2022-06-26] MEDS: OXYBUTYNIN CHLORIDE 5 MG TAB PO SCH (09:15)
[2022-06-26] MEDS: FUROSEMIDE 40 MG/4 ML VIAL IV SCH ×2 (09:15→20:04)
[2022-06-26] MEDS: MAGNESIUM OXIDE 400 MG TAB PO SCH (09:15)
[2022-06-26] MEDS: carvediloL 12.5 MG TAB PO SCH ×2 (09:15→17:12)
[2022-06-26] MEDS: LOSARTAN POTASSIUM 50 MG TABLET PO SCH (09:15)
[2022-06-26] MEDS: CLOPIDOGREL 75 MG TABLET PO SCH (09:16)
[2022-06-26] MEDS: FLUOXETINE 20 MG CAP PO SCH (09:16)
[2022-06-26] MEDS: GABAPENTIN 400 MG CAP PO SCH ×3 (09:16→20:21)
[2022-06-26] MEDS: AMLODIPINE 5 MG TAB PO SCH (09:16)
--- NOTE | 2022-06-26 12:23 | EKG ---
Test Date: 2022-06-24 Test Time: 19:22:41 Cable Puller: HA MEASUREMENT RESULTS: Intervals: Rate: 76 MA: 234 QRSD: 96 QT: 426 QTc: 479 [place]: P: 88 MA: 234 QRS: -14 T: 83 INTERPRETIVE STATEMENTS: Sinus rhythm with 1st degree AV block Anteroseptal infarct, age undetermined Abnormal ECG Compared to ECG 11/29/2019 17:13:40 No significant changes Electronically Signed On 06-26-22 12:21:34 CDT by Edmar Leon
--- NOTE | 2022-06-26 14:34 | ECHO ---
HEIGHT: 5 ft 6 in WEIGHT: 206 lb 11.2 oz DATE OF STUDY: 06/26/[address]: Donald Arellano MD 2-DIMENSIONAL: YES M.MODE: YES DOPPLER: YES COLOR FLOW: YES TDS: NO PORTABLE: YES DEFINITY: NO BUBBLE STUDY: NO DIAGNOSIS: CONGESTIVE HEART FAILURE CARDIAC HISTORY: CATHERIZATION: NO SURGERY: NO PROSTHETIC VALVE: NO PACEMAKER: NO MEASUREMENTS (cm) DIASTOLIC (NORMALS) SYSTOLIC (NORMALS) IVSd 1.1 (0.6-1.2) LA Diam 3.5 (1.9-4.0) LVEF 60-65% LVIDd 3.5 (3.5-5.7) LVIDs 2.7 (2.0-3.5) %FS 25% LVPWd 1.1 (0.6-1.2) Ao Diam 2.5 (2.0-3.7) 2 DIMENSIONAL ASSESSMENT: RIGHT ATRIUM: NORMAL LEFT ATRIUM: NORMAL RIGHT VENTRICLE: NORMAL LEFT VENTRICLE: NORMAL TRICUSPID VALVE: MITRAL VALVE: MITRAL ANNULAR CALCIFICATION PULMONIC VALVE: NORMAL AORTIC VALVE: NORMAL PERICARDIAL EFFUSION: NONE AORTIC ROOT: NORMAL LEFT VENTRICULAR WALL MOTION: NORMAL DOPPLER/COLOR FLOW: SEE BELOW COMMENTS: NORMAL LEFT VENTRICULAR EJECTION FRACTION 60-65%. NORMAL WALL MOTION. MITRAL ANNULAR CALCIFICATION WITH MODERATE MITRAL REGURGITATION. MODERATE TRICUSPID REGURGITATION. SEVERE PULMONARY HYPERTENSION WITH RIGHT VENTRICULAR SYSTOLIC PRESSURE OF >80 mmHg. MODERATE DIASTOLIC DYSFUNCTION. TECHNOLOGIST: Nba PATIÑO
[2022-06-26] MEDS: ATORVASTATIN 20 MG TAB PO SCH (20:21)
[2022-06-27] MEDS: ALBUTEROL 2.5 MG/3 ML NEB SOL NEB SCH ×3 (04:00→08:00)
[2022-06-27] MEDS: LEVOTHYROXINE SOD 0.088 MG TAB PO SCH (05:28)
--- NOTE | 2022-06-27 05:45 | PN ---
Date of Progress Note: 06/26/2022 Subjective: The patient was seen this morning for followup. She was lying in bed, not in any distre ss. No new complaints or problems reported by her. Lying in bed. Objective: Vital Signs: Reviewed. HEENT: Unremarkable. Lungs: Bilateral good equal air entry, not in respiratory distress. Clear to auscultation. Heart: Heart sounds normal. Abdomen: Soft, bowel sounds normal. No guarding, rigidity, tenderness, or distention. Extremities: Leg edema present, but better than before. Laboratory Data: White count 5.3, hemoglobin 9.9, platelets 253. Sodium 124, potassium 3.5, chlorid e 89, bicarb 30, BUN 46, creatinine 1.66, glucose 123, magnesium 2.3. Impression: 1.Congestive heart failure, chronic, systolic, with acute exacerbation. 2.Hyponatremia. 3.Anemia, chronic, unspecified. 4.Hypertension. 5.Diabetes mellitus. 6.Coronary artery disease. Plan: We will go ahead and help Physical Therapy help ambulate the patient. Continue current diuret ic therapy. Echo will be done today. We will follow up on results and we will repeat blood work tomorrow morning. Details and plan of doris atment discussed with her. JAVY/MODL Voice ID: [id number] Report ID: [id number]
[2022-06-27 05:55] LABS: Potassium 3.5 mmol/L (3.5-5.1)
[2022-06-27] MEDS: INSULIN -REGULAR HUMAN 50 UNIT/0.5 ML ML SQ SCH ×4 (07:30→20:50)
[2022-06-27] MEDS: carvediloL 12.5 MG TAB PO SCH ×2 (08:00→17:00)
[2022-06-27] MEDS ORDERED: POTASSIUM CL SA 10 MEQ TAB PO ONE (08:00)
[2022-06-27] MEDS ORDERED: ALBUTEROL 2.5 MG/3 ML NEB SOL NEB PRN (08:14)
[2022-06-27] MEDS: MAGNESIUM OXIDE 400 MG TAB PO SCH (09:00)
[2022-06-27] MEDS: OXYBUTYNIN CHLORIDE 5 MG TAB PO SCH (09:00)
[2022-06-27] MEDS: GABAPENTIN 400 MG CAP PO SCH ×3 (09:00→20:50)
[2022-06-27] MEDS: FUROSEMIDE 40 MG TABLET PO SCH ×2 (09:00→20:50)
[2022-06-27] MEDS: LOSARTAN POTASSIUM 50 MG TABLET PO SCH (09:00)
[2022-06-27] MEDS: MAGNES/ALUMIN/SIMET 30ML UCUP PO SCH ×3 (09:00→20:50)
[2022-06-27] MEDS: CLOPIDOGREL 75 MG TABLET PO SCH (09:00)
[2022-06-27] MEDS: INSULIN GLARGINE 100 UNIT/ML SQ SCH (09:00)
[2022-06-27] MEDS: AMLODIPINE 5 MG TAB PO SCH (09:00)
[2022-06-27] MEDS: FLUOXETINE 20 MG CAP PO SCH (09:00)
[2022-06-27] MEDS: HEPARIN 5000 UNIT/ML 1 ML VIAL SQ SCH ×2 (09:23→21:12)
--- NOTE | 2022-06-27 11:17 | RAD REPORT ---
EXAM DESCRIPTION: RAD - Chest Pa And Lat (2 Views) - 06/27/2022 11:01 am CLINICAL HISTORY: CHF COMPARISON: Portable 06/24/2022, portable 11/30/2019, lateral chest 10/22/2019 TECHNIQUE: Frontal and lateral views of the chest were obtained. FINDINGS: The lungs are underinflated. Chronic interstitial lung disease is present. Pattern is not significantly different from comparison. Central vasculature is mildly prominent. Heart size is uppe r normal, similar to comparison imaging. Small bilateral pleural effusions are present. No pneumothor ax present. Bony degenerative changes are present. No acute finding identifiable. Bone detail is limi saul. No aortic abnormality. IMPRESSION: CHF/volume overload pattern has improved since June 24.
--- NOTE | 2022-06-27 12:17 | RAD REPORT ---
EXAM DESCRIPTION: RAD - Barium Swallow Modified - 06/27/2022 12:07 pm CLINICAL HISTORY: swallowing evaluation COMPARISON: None. TECHNIQUE: The patient was given liquid, semi-solid and solid forms of barium. Lateral view fluorosc opic imaging was performed in conjunction with speech pathology service. FINDINGS: Cineloop acquisitions: 18 Fluoro time: 2:05 min Laryngeal penetration: with thin liquid, that cleared Pharyngeal residue: mild vallecula and posterior wall residue with thin liquid. decreased epiglottic deflection, severe esophageal dysmotility at inferior region, liquid did not emp ty into stomach. IMPRESSION: Modified barium swallow as summarized above and fully detailed on speech pathology repor tChetan
[2022-06-27] MEDS: D5 0.9 NS 1,000 ML IV SCH (12:48)
[2022-06-27] MEDS: NA CHLORIDE 0.9% 1,000 ML ONE (13:30)
[2022-06-27] MEDS ORDERED: Ringers Lactate 1,000 ML IV ONE (13:39)
[2022-06-27] MEDS ORDERED: EPINEPHRINE INH 0.5 ML VIAL IH ONE (14:45)
--- NOTE | 2022-06-27 14:58 | RAD REPORT ---
EXAM DESCRIPTION: RAD - Chest Single View - 06/27/2022 2:52 pm CLINICAL HISTORY: POSSIBLE ASPIRATION Chest pain. COMPARISON: Chest Pa And Lat (2 Views) dated 06/27/2022; Chest Single View dated 06/24/2022; Chest Sing le View dated 11/30/2019; Chest Pa And Lat (2 Views) dated 10/22/2019 FINDINGS: Portable technique limits examination quality. Bilateral interstitial lung markings are mildly prominent suggesting mild pulmonary edema. The heart is mildly enlarged in size. No displaced fractures. IMPRESSION: Mild CHF.
[2022-06-27] MEDS ORDERED: SODIUM CHLORIDE 0.9% 10ML INJ IV PRN (15:09)
[2022-06-27] MEDS: ATORVASTATIN 20 MG TAB PO SCH (20:50)
[2022-06-27] MEDS: PANTOPRAZOLE 40 MG INJ IVP SCH (21:12)
--- NOTE | 2022-06-28 01:50 | PN ---
Date of Progress Note: 06/27/2022 Subjective: The patient was seen this morning for followup. Her daughter was with her at bedside. As of yesterday afternoon, the patient started to have trouble swallowing where she describes as if f ood or liquids get stuck in her lower throat/upper esophagus area and she has to regurgitate back up. After lunch time, she has not had anything to eat and after she informed me about this, this mornin g, modified barium swallow was ordered to be done and speech therapist contacted me and informed me t hat she is concerned about the patient having some obstruction in the upper esophagus area as she tri ed to give her barium and the patient was not able to swallow that and she reports that barium did no t pass through esophagus into the stomach area and the patient had to regurgitate all of it back up. The patient was kept n.p.o. With this information, IV fluid D5 normal saline was started and gastro enterologist, Dr. Emmanuel, who was on-call was consulted and I did discuss all these details with luke slaughter. Objective: This morning when I saw her: HEENT: Unremarkable. Lungs: Clear to auscultation. No rales, not in distress. Heart: Sounds normal. Abdomen: Soft. Bowel sounds normal. No guarding, rigidity, tenderness, or distention. Extremities: No leg edema. Laboratory Data: Sodium 130, potassium 3.5, chloride 91, bicarb 33, BUN 51, creatinine 1.59, glucose 81. Echocardiogram showed ejection fraction 60%-65%, mitral annular calcification, moderate mitral and tricuspid regurgitation, severe pulmonary hypertension, and diastolic dysfunction. Impression: 1.Dysphagia. 2.Congestive heart failure, chronic, diastolic, with acute exacerbation. 3.Coronary artery disease . After I communicated information with Dr. Emmanuel, he took the patient to endoscopy room on an emerg ency basis this afternoon and after the procedure, he informed me that as soon as he started doing en doscopy procedure, he noted that the patient had a very large amount of food in the upper esophagus a nd she was at high risk of aspiration and immediately the patient was intubated to prevent aspiration pneumonia and respiratory failure problem. Dr. Emmanuel was able to remove large amount of food lance t was retained in the esophagus and the way he described to me, the patient had food retained in her esophagus almost throughout the entire esophagus. There was no definite stricture noted. What Dr. Blanca avalos is concerned about is achalasia type of problem with the esophagus. He has suggested for us to keep her n.p.o. right now starting tomorrow, depending on her condition start her on clear liquid diet and then advance to full liquid diet, but right now at least the patient should not eat any kev d food further instructions from him. Chest x-ray earlier today, before this procedure was done, was unremarkable. Repeat chest x-ray after this procedure did not show any aspiration pneumonia, but sh owed changes of mild congestive heart failure. Earlier today, when I communicated with the patient's daughter and the patient, we started talking about discharge planning and considering the patient's condition is deteriorating over period of time, we did talk about possibility of intermediate faci lity placement also and the patient is appropriate to go to such place, if she decides to do so at th is time. We are not sure if she wants to go home or she wants to go to such facility, but the patien t's daughter and the patient will discuss this. Overall long-term prognosis is guarded. I will see her tomorrow for followup. JAVY/MODL Voice ID: [id number] Report ID: [id number]
--- NOTE | 2022-06-28 03:03 | OP ---
Surgeon: Eugene Emmanuel MD Procedure: Esophagogastroduodenoscopy. Indication For Procedure: Suspect foreign body in the esophagus. Plan For Anesthesia: Monitored anesthesia care. Complexity: High due to being an emergent case, the patient's comorbidities. Technique: After obtaining informed consent from the patient explaining risks and complications whic h include but are not limited to bleeding, infection, perforation, and anesthesia complication, the p atient was placed in left lateral position. Sedation was given. Immediately after sedation while th e scope was being advanced to the mouth, the patient did have a coughing reflex with some food conten t coming back into the oropharynx area. This was quickly suctioned. It appears that the whole esoph agueda is full of food with liquid material. Decision was quickly taken to intubate the patient to pro tect the airway. Intubation went seamlessly, then the procedure was continued. The scope was passed again into the esophagus. A large bolus of food was seen from the proximal to the distal esophagus. There was no specific site of impaction or impacted food, but just it was pasted all over around th e esophageal wall. I was able to enter the stomach slowly by pushing some food down. There appeared to be mild resistance in the distal esophagus, but I could not see a definitive stricture. However, there was a lot of food interfering with visualization. Subsequently, the scope was pulled back up to the proximal esophagus and the Braun Net was used to scoop out the chunks of food with multiple att empts. Eventually, the entire esophagus was clean with only minimal residual food attached to the si de of the esophagus still. No definitive stricture seen, but a mild narrowing was appreciated. Scop e was then advanced to the duodenal bulb. Findings: As above with food bolus impaction. Mild distal esophageal stenosis. Plan: Continue current management. Keep n.p.o., start her on a PPI. Can start clear liquid diet fr om tomorrow. Will do a barium esophagogram tomorrow. My concern would be for achalasia in this situ ation. If the findings not consistent with achalasia, we can undertake elective EGD with dilation as an outpatient as well to see if that assists in her symptoms and preventing another recurrence. Thi s plan of care was discussed with Dr. Arellano as well. US/MODL Voice ID: [id number] Report ID: [id number]
[2022-06-28] MEDS: LEVOTHYROXINE SOD 0.088 MG TAB PO SCH (05:42)
[2022-06-28 05:50] LABS: Potassium 3.3 mmol/L (3.5-5.1)
[2022-06-28] MEDS: INSULIN -REGULAR HUMAN 50 UNIT/0.5 ML ML SQ SCH ×4 (07:30→21:41)
[2022-06-28] MEDS ORDERED: POTASSIUM 25 MEQ EFFERV TAB PO ONE (07:30)
[2022-06-28] MEDS: carvediloL 12.5 MG TAB PO SCH ×2 (08:00→17:02)
[2022-06-28] MEDS: LOSARTAN POTASSIUM 50 MG TABLET PO SCH (08:58)
[2022-06-28] MEDS: AMLODIPINE 5 MG TAB PO SCH (08:58)
[2022-06-28] MEDS: MAGNES/ALUMIN/SIMET 30ML UCUP PO SCH ×3 (08:58→21:40)
[2022-06-28] MEDS: GABAPENTIN 400 MG CAP PO SCH ×3 (08:58→21:40)
[2022-06-28] MEDS: MAGNESIUM OXIDE 400 MG TAB PO SCH (08:58)
[2022-06-28] MEDS: FUROSEMIDE 40 MG TABLET PO SCH ×2 (08:58→21:39)
[2022-06-28] MEDS: OXYBUTYNIN CHLORIDE 5 MG TAB PO SCH (08:58)
[2022-06-28] MEDS: INSULIN GLARGINE 100 UNIT/ML SQ SCH (08:59)
[2022-06-28] MEDS: PANTOPRAZOLE 40 MG INJ IVP SCH ×2 (08:59→21:40)
[2022-06-28] MEDS: CLOPIDOGREL 75 MG TABLET PO SCH (08:59)
[2022-06-28] MEDS: FLUOXETINE 20 MG CAP PO SCH (08:59)
[2022-06-28] MEDS: D5 0.9 NS 1,000 ML IV SCH (09:00)
[2022-06-28] MEDS: HEPARIN 5000 UNIT/ML 1 ML VIAL SQ SCH ×2 (09:00→21:39)
[2022-06-28] MEDS: KCL 20 MEQ/100 mL IVPB 20 MEQ/100 ML BAG IV SCH ×2 (09:00→12:53)
--- NOTE | 2022-06-28 13:05 | RAD REPORT ---
EXAM DESCRIPTION: RAD - Esophagram Only - 06/28/2022 11:25 am CLINICAL HISTORY: Dysphagia COMPARISON: None FINDINGS: No permanent filling defects or obstructing lesions seen Mild smooth narrowing distal esophagus The mucosal folds of the esophagus appear normal. The progression of contrast from the esophagus to the stomach is delayed Fluoroscopy time 28 seconds. Eighteen fluoroscopic spot images obtained IMPRESSION: Esophageal dysmotility Mild smooth narrowing distal esophagus
[2022-06-28] MEDS ORDERED: ALBUTEROL 2.5 MG/3 ML NEB SOL NEB PRN (15:00)
[2022-06-28] MEDS: ATORVASTATIN 20 MG TAB PO SCH (21:40)
--- NOTE | 2022-06-29 00:17 | PN ---
Date of Progress Note: 06/28/2022 Subjective: The patient was seen this morning for followup. No new complaints or problems reported by patient, lying in bed, not in distress. Objective: Vital Signs: Reviewed. HEENT: Unremarkable. Lungs: Clear to auscultation. Heart: Heart sounds normal. Abdomen: Soft. Bowel sounds normal. No guarding, rigidity, tenderness, or distention. Extremities: No leg edema. Laboratory Data: Reviewed. Esophagram results reviewed, which was done today. Impression: 1.Congestive heart failure, chronic, diastolic, with acute exacerbation. 2.Coronary artery disease. 3.Hypertension. 4.Diabetes mellitus. 5.Anemia due to chronic kidney disease. 6.Esophageal dysmotility. 7.Dysphagia secondary to above. Plan: We will go ahead and start the patient on clear liquid diet today. Physical therapy to work w ith the patient. We will go ahead and continue the current medical management. The patient requires oxygen replacement therapy and Social Service [facility] assisting the [facility] Once it is arranged, we will be able to discharge her to go to such facility. I did talk to patient this morning if she would consider PEG tube placement or not and she clearly stated that she refuses to have any kind of feeding tube placement. JAVY/MODL Voice ID: [id number] Report ID: [id number]
[2022-06-29] MEDS: LEVOTHYROXINE SOD 0.088 MG TAB PO SCH (05:45)
[2022-06-29] MEDS: D5 0.9 NS 1,000 ML IV SCH (06:29)
[2022-06-29] MEDS: INSULIN -REGULAR HUMAN 50 UNIT/0.5 ML ML SQ SCH ×4 (07:30→21:00)
--- NOTE | 2022-06-29 08:50 | RAD REPORT ---
EXAM DESCRIPTION: US - Extrem Venous W Compress Torres - 06/29/2022 8:17 am CLINICAL HISTORY: rule out DVT Bilateral leg edema and swelling. COMPARISON: Extrem Venous W Compress Torres dated 05/12/2022 TECHNIQUE: Real-time sonographic interrogation of the left and right lower extremity deep venous sys tems was performed. FINDINGS: Normal compressibility, flow augmentation, phasic flow and spontaneous flow is identified in both the left and right lower extremity deep venous systems. IMPRESSION: No sonographic evidence of left or right lower extremity deep venous thrombosis.
[2022-06-29 09:10] LABS: Albumin 2.7 g/dL (3.4-5.0); Bilirubin Total 0.7 mg/dL (0.2-1.0); Protein, Total 6.3 g/dL (6.4-8.2)
[2022-06-29 09:11] LABS: Potassium 4.1 mmol/L (3.5-5.1)
--- NOTE | 2022-06-29 09:12 | RAD REPORT ---
EXAM DESCRIPTION: CT - Thorax Wo Con CLINICAL HISTORY: Chest pain hypoxia COMPARISON: CTANGIO CHEST FOR PE dated 02/26/2014 FINDINGS: Moderate atelectasis are present in both lung bases. Areas of mild ground-glass opacity ar e present bilaterally, greater on the left. Small bilateral pleural effusions. No pneumothorax. No axillary, mediastinal or hilar adenopathy. No concerning bony finding. Cholelithiasis. All CT scans are performed using dose optimization technique as appropriate and may include automated exposure control or mA/KV adjustment according to patient size. IMPRESSION: Areas of ground-glass opacity are present bilaterally likely representing interstitial e jing or mild infection. Moderate areas of atelectasis are seen in both lung bases posteriorly. Small bilateral pleural effusions
[2022-06-29 09:21] LABS: Absolute Lymphocytes (CBC) 1.1 K/uL (0.7-4.9); Hematocrit 34.6 % (36.0-45.0); Lymphocytes % 14.4 % (15.3-44.8); MCV 90.4 fL (80-100); MPV 6.2 fL (7.6-11.3); RBC Red Blood Cell Count 3.83 M/uL (3.86-4.86)
[2022-06-29] MEDS: FLUOXETINE 20 MG CAP PO SCH (09:22)
[2022-06-29] MEDS: FUROSEMIDE 40 MG TABLET PO SCH (09:22)
[2022-06-29] MEDS: MAGNESIUM OXIDE 400 MG TAB PO SCH (09:23)
[2022-06-29] MEDS: carvediloL 12.5 MG TAB PO SCH ×2 (09:23→16:24)
[2022-06-29] MEDS: LOSARTAN POTASSIUM 50 MG TABLET PO SCH (09:23)
[2022-06-29] MEDS: GABAPENTIN 400 MG CAP PO SCH ×3 (09:23→21:01)
[2022-06-29] MEDS: PANTOPRAZOLE 40 MG INJ IVP SCH ×2 (09:23→21:04)
[2022-06-29] MEDS: AMLODIPINE 5 MG TAB PO SCH (09:23)
[2022-06-29] MEDS: HEPARIN 5000 UNIT/ML 1 ML VIAL SQ SCH ×2 (09:23→21:02)
[2022-06-29] MEDS: PIPER TAZO 3.375 GM in NA CHLORIDE 0.9% 100 ML IV SCH ×2 (09:24→16:24)
[2022-06-29] MEDS: CLOPIDOGREL 75 MG TABLET PO SCH (09:24)
[2022-06-29] MEDS: INSULIN GLARGINE 100 UNIT/ML SQ SCH (09:24)
[2022-06-29] MEDS: MAGNES/ALUMIN/SIMET 30ML UCUP PO SCH ×3 (09:24→21:03)
[2022-06-29] MEDS: OXYBUTYNIN CHLORIDE 5 MG TAB PO SCH (09:24)
[2022-06-29] MEDS: FLUTICASONE 50MCG NASAL SPRAY NAS SCH ×2 (10:13→21:00)
[2022-06-29] MEDS ORDERED: FUROSEMIDE 40 MG/4 ML VIAL IV ONE (10:24)
--- NOTE | 2022-06-29 12:57 | RAD REPORT ---
EXAM DESCRIPTION: X-ray single view chest. CLINICAL HISTORY: 82 years Female, CHF COMPARISON: Chest x-ray report from 06/27/2022. The image was not available for comparison. TECHNIQUE: Single portable x-ray view of the chest performed on 06/29/2022 at 6:01 AM FINDINGS: The lungs are well expanded. There is mild patchy perihilar and right basilar patchy paren chymal opacification which may be due to scarring and/or atelectasis. No focal airspace consolidation is identified. The lateral costophrenic sulci are clear. There is no evidence of a pneumothorax. The cardiac silhouette is normal in size and configuration. The mediastinal contours are normal. No acute osseous abnormality is identified. No acute soft tissue abnormalities are seen. Lines and tubes: There are overlying panel monitor leads. Free air: None IMPRESSION: 1. Mild patchy perihilar and right basilar patchy parenchymal opacification which may be due to scarring and/or atelectasis. 2. No definite acute intrathoracic disease. Electronically signed by: Mary Nicholas DO 06/29/2022 6:44 AM CDT Due to temporary technical issues with the PACS/Fluency reporting system, reports are being signed by the in house radiologists without review as a courtesy to insure prompt reporting. The interpreting radiologist is fully responsible for the content of the report.
[2022-06-29] MEDS: FUROSEMIDE 40 MG/4 ML VIAL IV SCH (16:25)
[2022-06-29] MEDS: DIPHENHYDRAMINE 25 MG TAB/CAP PO PRN (21:00)
[2022-06-29] MEDS: ATORVASTATIN 20 MG TAB PO SCH (21:00)
--- NOTE | 2022-06-29 23:06 | PN ---
Date of Progress Note: 06/29/2022 Subjective: The patient was seen this morning for followup. No new complaints or problems reported by the patient. Lying in bed, not in distress except overnight her oxygenation had gotten worse to t he extent that she is on home flow oxygen. She is complaining of "I cannot breathe from nose." Her nasal passage is blocked and she has trouble breathing, but she denies any congestion feeling, denies any nasal discharge. She is not coughing up any mucus. Objective: Vital Signs: Reviewed. HEENT: Examination unremarkable. Lungs: Bilateral good equal air entry. Clear to auscultation except minimal basal rales on both marisol e. Not using accessory muscles of respiration. Heart: Sounds normal. Abdomen: Soft. Bowel sounds normal. No guarding, rigidity, tenderness, or distention. Extremities: No leg edema. Laboratory Data: CBC and chemistry done today, reviewed. Venous Doppler of both lower extremity don e today shows no evidence of DVT and CAT scan of the chest done today, results reviewed as well. Impression: 1.Congestive heart failure, chronic, diastolic, with acute exacerbation. 2.Probable pneumonia. 3.Acute respiratory failure with hypoxia. Plan: We will go ahead and start the patient on Flonase nasal spray per order. Discontinue oral Las ix, start IV Lasix per order. We will go ahead and start empiric antibiotics as well as Zosyn. I di d inform the patient regarding her esophagram result and she has esophageal dysmotility, very likely she may have achalasia cardia and I did recommend a PEG tube placement to her and she refuses that, b ut at the same time, she is willing to stay on liquid diet from now and no solid food. Social servniru ryan is working on fpc placement, but considering her hypoxia and requiring higher amount of ox ygen, she will not be getting discharge tomorrow and very likely she will be in the hospital through the weekend and earliest possible discharge might be Sunday. JAVY/MODL Voice ID: [id number] Report ID: [id number]
[2022-06-30] MEDS: PIPER TAZO 3.375 GM in NA CHLORIDE 0.9% 100 ML IV SCH ×3 (00:27→18:01)
[2022-06-30] MEDS: LEVOTHYROXINE SOD 0.088 MG TAB PO SCH (06:14)
[2022-06-30] MEDS: INSULIN -REGULAR HUMAN 50 UNIT/0.5 ML ML SQ SCH ×4 (07:30→21:00)
[2022-06-30] MEDS: MAGNES/ALUMIN/SIMET 30ML UCUP PO SCH ×3 (09:00→21:00)
[2022-06-30] MEDS: HEPARIN 5000 UNIT/ML 1 ML VIAL SQ SCH ×2 (09:45→21:37)
[2022-06-30] MEDS: FUROSEMIDE 40 MG/4 ML VIAL IV SCH ×2 (09:45→18:01)
[2022-06-30] MEDS: PANTOPRAZOLE 40 MG INJ IVP SCH ×2 (09:45→21:37)
[2022-06-30] MEDS: FLUOXETINE 20 MG CAP PO SCH (09:46)
[2022-06-30] MEDS: AMLODIPINE 5 MG TAB PO SCH (09:46)
[2022-06-30] MEDS: GABAPENTIN 400 MG CAP PO SCH ×3 (09:46→21:37)
[2022-06-30] MEDS: carvediloL 12.5 MG TAB PO SCH ×2 (09:47→18:01)
[2022-06-30] MEDS: LOSARTAN POTASSIUM 50 MG TABLET PO SCH (09:47)
[2022-06-30] MEDS: MAGNESIUM OXIDE 400 MG TAB PO SCH (09:47)
[2022-06-30] MEDS: FLUTICASONE 50MCG NASAL SPRAY NAS SCH ×2 (09:47→21:38)
[2022-06-30] MEDS: OXYBUTYNIN CHLORIDE 5 MG TAB PO SCH (09:47)
[2022-06-30] MEDS: CLOPIDOGREL 75 MG TABLET PO SCH (09:48)
[2022-06-30] MEDS: INSULIN GLARGINE 100 UNIT/ML SQ SCH (09:48)
--- NOTE | 2022-06-30 16:09 | PN ---
Date of Progress Note: 06/30/2022 Subjective: Patient was seen this morning for followup. No new complaints or problems reported by callum valadez. She was overall feeling better than yesterday. She is on nasal cannula oxygen at 5 L/minute , which is much better today than yesterday. She reports that her shortness of breath feeling is bet ter. She is tolerating liquid diet very well. Objective: Vital Signs: Reviewed. HEENT: Unremarkable. Lungs: Clear to auscultation. Heart: Sounds normal. Abdomen: Soft. Bowel sounds normal. No guarding, rigidity, tenderness, or distention. Extremities: No leg edema. Laboratory Data: There were no new labs today. Impression: 1.Congestive heart failure, chronic, diastolic, with acute exacerbation. 2.Acute respiratory failure with hypoxia. 3.Pneumonia. 4.Hypertension. 5.Coronary artery disease. Plan: We will go ahead and continue current medications. Continue current IV Lasix, IV antibiotics. We will repeat blood work tomorrow and Social Service to assist the patient with discharge planning to go to alf. Possible discharge on Sunday, which is 07/03/2022, and details were discussed with the patient. JAVY/MODL Voice ID: [id number] Report ID: [id number]
[2022-06-30] MEDS: ATORVASTATIN 20 MG TAB PO SCH (21:37)
[2022-06-30] MEDS: GLUCERNA SHAKE 237 ML CAN PO SCH (21:39)
[2022-07-01] MEDS: PIPER TAZO 3.375 GM in NA CHLORIDE 0.9% 100 ML IV SCH ×3 (00:21→17:23)
[2022-07-01] MEDS: LEVOTHYROXINE SOD 0.088 MG TAB PO SCH (06:05)
[2022-07-01] MEDS: INSULIN -REGULAR HUMAN 50 UNIT/0.5 ML ML SQ SCH ×4 (07:30→21:00)
[2022-07-01] MEDS: INSULIN GLARGINE 100 UNIT/ML SQ SCH (09:00)
[2022-07-01] MEDS: MAGNESIUM OXIDE 400 MG TAB PO SCH (09:00)
[2022-07-01] MEDS: GLUCERNA SHAKE 237 ML CAN PO SCH ×2 (09:00→21:03)
[2022-07-01] MEDS: PANTOPRAZOLE 40 MG INJ IVP SCH (09:00)
[2022-07-01] MEDS: MAGNES/ALUMIN/SIMET 30ML UCUP PO SCH (09:00)
[2022-07-01] MEDS ORDERED: MAGNESIUM HYDROXIDE 8% 30 ML PO ONE (09:45)
[2022-07-01] MEDS: GABAPENTIN 400 MG CAP PO SCH ×3 (10:45→21:03)
[2022-07-01] MEDS: FLUOXETINE 20 MG CAP PO SCH (10:45)
[2022-07-01] MEDS: carvediloL 12.5 MG TAB PO SCH ×2 (10:45→17:23)
[2022-07-01] MEDS: CLOPIDOGREL 75 MG TABLET PO SCH (10:45)
[2022-07-01] MEDS: HEPARIN 5000 UNIT/ML 1 ML VIAL SQ SCH ×2 (10:45→21:02)
[2022-07-01] MEDS: FUROSEMIDE 40 MG/4 ML VIAL IV SCH ×2 (10:46→17:23)
[2022-07-01] MEDS: LOSARTAN POTASSIUM 50 MG TABLET PO SCH (10:46)
[2022-07-01] MEDS: FLUTICASONE 50MCG NASAL SPRAY NAS SCH ×2 (10:47→21:02)
[2022-07-01] MEDS: AMLODIPINE 5 MG TAB PO SCH (10:47)
[2022-07-01] MEDS: OXYBUTYNIN CHLORIDE 5 MG TAB PO SCH (10:48)
--- NOTE | 2022-07-01 11:08 | PN ---
Date of Progress Note: 07/01/2022 Subjective: Patient was seen this morning for followup. No new complaints or problems reported by callum valadez. She was sitting at bedside, eating her breakfast this morning. She is tolerating full liqui d diet very well without any problems. Has not had a bowel movement in last several days. Vital sig ns reviewed. She denies any abdominal pain, nausea, vomiting. She remains on oxygen 5 L/minute nasa l cannula. Physical Examination: HEENT: Unremarkable. Lungs: Bilateral good equal air entry with minimal basal rales not in respiratory distress. Heart: Sounds normal. Abdomen: Soft. Bowel sounds normal. No guarding, rigidity, tenderness, or distention. Extremities: No leg edema. Impression: 1.Pneumonia. 2.Congestive heart failure. 3.Achalasia cardia. 4.Hypertension. 5.Diabetes mellitus. 6.Coronary artery disease. Plan: We will go ahead and continue current Lasix and antibiotics. We will repeat blood work tomorr ow. We will get a chest x-ray done today. I did communicate with the nursing staff to see if we can possibly cut back on the amount of oxygen that she is getting currently at 5 L/minute. If possible, would like to reduce oxygen to 4 and eventually 2-3 L/minute depending on her oxygen saturation. We will give 1 dose of milk of magnesia today. Discontinue Maalox and change Protonix from every 12 hours to once a day. I will see her tomorrow for followup. JAVY/MODL Voice ID: [id number] Report ID: [id number]
--- NOTE | 2022-07-01 11:20 | RAD REPORT ---
EXAM DESCRIPTION: RAD - Chest Pa And Lat (2 Views) - 07/01/2022 11:07 am CLINICAL HISTORY: CHF, pneumonia Chest pain. COMPARISON: Chest Single View dated 06/29/2022; Chest Single View dated 06/27/2022; Chest Pa And Lat (2 Views) dated 06/27/2022; Chest Single View dated 06/24/2022; Thorax Wo Con dated 06/29/2022 FINDINGS: Mild pulmonary edema is present, greater on the left. The heart is mildly enlarged in size . Small bilateral pleural effusions are present. No displaced fractures. IMPRESSION: Mild CHF.
[2022-07-01] MEDS: ATORVASTATIN 20 MG TAB PO SCH (21:03)
[2022-07-02] MEDS: PIPER TAZO 3.375 GM in NA CHLORIDE 0.9% 100 ML IV SCH ×4 (00:14→23:50)
[2022-07-02 05:58] VITALS: BMI 31.6
[2022-07-02] MEDS: LEVOTHYROXINE SOD 0.088 MG TAB PO SCH (06:15)
[2022-07-02 08:06] LABS: Absolute Lymphocytes (CBC) 1.3 K/uL (0.7-4.9); Lymphocytes % 21.8 % (15.3-44.8); MCV 89.5 fL (80-100); MPV 7.3 fL (7.6-11.3); RBC Red Blood Cell Count 3.58 M/uL (3.86-4.86)
[2022-07-02 08:31] LABS: Potassium 3.8 mmol/L (3.5-5.1)
[2022-07-02] MEDS: INSULIN GLARGINE 100 UNIT/ML SQ SCH (08:42)
[2022-07-02] MEDS: HEPARIN 5000 UNIT/ML 1 ML VIAL SQ SCH ×2 (08:43→20:46)
[2022-07-02] MEDS: INSULIN -REGULAR HUMAN 50 UNIT/0.5 ML ML SQ SCH ×4 (08:43→20:58)
[2022-07-02] MEDS: PANTOPRAZOLE 40 MG INJ IVP SCH (08:46)
[2022-07-02] MEDS: FUROSEMIDE 40 MG/4 ML VIAL IV SCH ×2 (08:46→17:02)
[2022-07-02] MEDS: AMLODIPINE 5 MG TAB PO SCH (08:52)
[2022-07-02] MEDS: MAGNESIUM OXIDE 400 MG TAB PO SCH (08:52)
[2022-07-02] MEDS: GABAPENTIN 400 MG CAP PO SCH ×3 (08:53→20:46)
[2022-07-02] MEDS: carvediloL 12.5 MG TAB PO SCH ×2 (08:53→17:01)
[2022-07-02] MEDS: FLUOXETINE 20 MG CAP PO SCH (08:54)
[2022-07-02] MEDS: CLOPIDOGREL 75 MG TABLET PO SCH (08:54)
[2022-07-02] MEDS: LOSARTAN POTASSIUM 50 MG TABLET PO SCH (08:54)
[2022-07-02] MEDS: GLUCERNA SHAKE 237 ML CAN PO SCH ×2 (08:55→20:51)
[2022-07-02] MEDS: FLUTICASONE 50MCG NASAL SPRAY NAS SCH ×2 (08:55→20:46)
[2022-07-02] MEDS: DIPHENHYDRAMINE 25 MG TAB/CAP PO PRN (09:05)
[2022-07-02] MEDS: OXYBUTYNIN CHLORIDE 5 MG TAB PO SCH (09:05)
[2022-07-02] MEDS ORDERED: BISACODYL 10 MG RECTAL SUPP PR ONE (10:25)
--- NOTE | 2022-07-02 15:27 | PN ---
Date of Progress Note: 07/02/2022 Subjective: The patient was seen this morning for followup. No new complaints or problems reported by her. She was lying in bed, not in distress, on nasal cannula oxygen at 4 L/minute today. Yesterday, she was on 5 L/minute. Denies any shortness of breath. Her 2 daughters were present at bedside. Objective: Vital Signs: Reviewed. HEENT: Unremarkable. Lungs: Bilateral good air entry. Clear to auscultation. No wheezing. No rales. Not in respiratory distress. Heart: Sounds normal. Abdomen: Soft. Bowel sounds normal. No guarding, rigidity, tenderness, distention. Extremities: No leg edema. Laboratory Data: White count today 6, hemoglobin 10.8, platelets 160. Sodium 133, potassium 3.8, chloride 95, bicarb 37, BUN 25, creatinine 1.46, glucose 213. Impression: 1. Congestive heart failure. 2. Pneumonia. 3. Acute respiratory failure with hypoxia. 4. Chronic kidney disease, stage 3B. 5. Hypertension. 6. Coronary artery disease. 7. Achalasia cardia. 8. Dysphagia secondary to above. 9. Anemia due to chronic kidney disease. Plan: The patient's condition is stable today. We will continue Lasix. We will continue antibiotic treatment per order. Continue current DVT prophylaxis using heparin. Yesterday, milk of magnesia was given 1 time dose, but she has not had a bowel movement, so I did not talk to her about using Dulcolax rectal suppository which she did refuse it later on as per nursing staff. When I was in the room with her, I had a long discussion with her and her 2 daughters, explained them about EGD finding and esophagram finding indicating achalasia cardia. The patient is refusing PEG tube placement and at present time she will need to stay on full liquid diet. She wanted to eat solid food and once again I explained it to her today in presence of her daughter that she is not able to eat solid food because of her esophagus condition and best we can do is leave her on right now full liquid diet. I had explained this to her before also. If she wants anything done for this esophagus condition, then she will need to have a followup with Dr. Emmanuel on an elective outpatient basis and he will have to refer her to some specialist in [place] to see if they can do any Botox treatment or any other intervention, but once again she does not want feeding tube and any intervention pertaining to that will need to be done on an elective outpatient basis. Meanwhile, her other problems are stable right now for discharge. Daughter will communicate with Social Service tomorrow regarding placement and once they come up with arrangements for care home facility, I will be able to discharge her. I explained to the patient that in order for her to go home, but she wants to do so right now and not able to go home because she is not able to independently get out of bed and ambulate and until she is able to do so, she will not be able to return back home and in order for her to do so, she will have to go ahead and give sometime and exercise in terms of physical therapy to get better and all those details were discussed with her in presence of her daughters as well today. JAVY/BRAULIO Voice ID: [id number] Report ID: [id number] ELYSSA
[2022-07-02] MEDS: ATORVASTATIN 20 MG TAB PO SCH (20:46)
[2022-07-03] MEDS: LEVOTHYROXINE SOD 0.088 MG TAB PO SCH (05:34)
[2022-07-03] MEDS: GLUCERNA SHAKE 237 ML CAN PO SCH ×2 (09:00→20:16)
[2022-07-03] MEDS: MAGNESIUM OXIDE 400 MG TAB PO SCH (09:00)
[2022-07-03] MEDS: INSULIN GLARGINE 100 UNIT/ML SQ SCH (09:31)
[2022-07-03] MEDS: INSULIN -REGULAR HUMAN 50 UNIT/0.5 ML ML SQ SCH ×4 (09:31→20:16)
[2022-07-03] MEDS: PIPER TAZO 3.375 GM in NA CHLORIDE 0.9% 100 ML IV SCH ×2 (09:31→16:02)
[2022-07-03] MEDS: PANTOPRAZOLE 40 MG INJ IVP SCH (09:32)
[2022-07-03] MEDS: FUROSEMIDE 40 MG/4 ML VIAL IV SCH ×2 (09:32→16:01)
[2022-07-03] MEDS: HEPARIN 5000 UNIT/ML 1 ML VIAL SQ SCH ×2 (09:32→20:15)
[2022-07-03] MEDS: carvediloL 12.5 MG TAB PO SCH ×2 (09:33→16:02)
[2022-07-03] MEDS: AMLODIPINE 5 MG TAB PO SCH (09:34)
[2022-07-03] MEDS: FLUOXETINE 20 MG CAP PO SCH (09:34)
[2022-07-03] MEDS: LOSARTAN POTASSIUM 50 MG TABLET PO SCH (09:35)
[2022-07-03] MEDS: GABAPENTIN 400 MG CAP PO SCH ×3 (09:35→20:15)
[2022-07-03] MEDS: OXYBUTYNIN CHLORIDE 5 MG TAB PO SCH (09:35)
[2022-07-03] MEDS: CLOPIDOGREL 75 MG TABLET PO SCH (09:35)
[2022-07-03] MEDS: FLUTICASONE 50MCG NASAL SPRAY NAS SCH ×2 (09:36→20:16)
[2022-07-03] MEDS: ATORVASTATIN 20 MG TAB PO SCH (20:15)
[2022-07-04] MEDS: PIPER TAZO 3.375 GM in NA CHLORIDE 0.9% 100 ML IV SCH ×2 (00:09→10:41)
[2022-07-04 05:50] LABS: Absolute Lymphocytes (CBC) 1.7 K/uL (0.7-4.9); Hematocrit 31.5 % (36.0-45.0); Lymphocytes % 25.3 % (15.3-44.8); MPV 7.7 fL (7.6-11.3)
[2022-07-04 06:12] LABS: Potassium 3.4 mmol/L (3.5-5.1)
[2022-07-04] MEDS: LEVOTHYROXINE SOD 0.088 MG TAB PO SCH (06:36)
[2022-07-04] MEDS: INSULIN -REGULAR HUMAN 50 UNIT/0.5 ML ML SQ SCH ×2 (07:30→11:30)
[2022-07-04] MEDS: GLUCERNA SHAKE 237 ML CAN PO SCH (09:00)
[2022-07-04] MEDS ORDERED: POTASSIUM 25 MEQ EFFERV TAB PO ONE (09:00)
[2022-07-04] MEDS: INSULIN GLARGINE 100 UNIT/ML SQ SCH (09:00)
[2022-07-04] MEDS: MAGNESIUM OXIDE 400 MG TAB PO SCH (09:00)
[2022-07-04] MEDS: FLUTICASONE 50MCG NASAL SPRAY NAS SCH (09:00)
[2022-07-04] MEDS ORDERED: PANTOPRAZOLE 40MG TABLET PO SCH (09:00)
[2022-07-04 09:32] VITALS: O2SAT 90
--- NOTE | 2022-07-04 09:45 | PN ---
Date of Progress Note: 07/03/2022 Subjective: Patient was seen this morning for followup. No new complaints or problems reported by callum valadez. She was lying in bed, not in any distress. Denies any new complaints. Remains on oxygen at 5 L/minute. Objective: Vital Signs: Reviewed. HEENT: Unremarkable. Lungs: Clear to auscultation. No rales, not in any respiratory distress. Heart: Sounds normal. Abdomen: Soft. Bowel sounds normal. No guarding, rigidity, tenderness, or distention. Extremities: No leg edema. Impression: 1.Pneumonia. 2.Congestive heart failure. 3.Hypertension. 4.Diabetes mellitus. 5.Generalized weakness. 6.Debility. 7.Achalasia cardia. Plan: We will go ahead and continue current medications. Continue oxygen replacement therapy, antib iotic, Lasix. Continue current DVT prophylaxis and current full liquid diet. The patient keeps tell ing me that she really wants to and she really does not want to do any physical therapy and I fee l like she just does not want to even try to get better. On one hand she wants to go home, but on th e other hand, she is not able to go home because she lives by herself at home and she is not able to take care of herself, so she will need to go to care home facility, but at the same time, she d oes not want to try to do any therapy to get strong enough in order for her to go home. Social Service is assisting the patient and family member with care home facility [facility] JAVY/MODL Voice ID: [id number] Report ID: [id number]
[2022-07-04] MEDS: LOSARTAN POTASSIUM 50 MG TABLET PO SCH (10:42)
[2022-07-04] MEDS: ATORVASTATIN 20 MG TAB PO SCH (10:43)
[2022-07-04] MEDS: FLUOXETINE 20 MG CAP PO SCH (10:43)
[2022-07-04] MEDS: carvediloL 12.5 MG TAB PO SCH (10:43)
[2022-07-04] MEDS: FUROSEMIDE 40 MG/4 ML VIAL IV SCH (10:44)
[2022-07-04] MEDS: GABAPENTIN 400 MG CAP PO SCH ×2 (10:44→14:57)
[2022-07-04] MEDS: AMLODIPINE 5 MG TAB PO SCH (10:44)
[2022-07-04] MEDS: CLOPIDOGREL 75 MG TABLET PO SCH (10:44)
[2022-07-04] MEDS: HEPARIN 5000 UNIT/ML 1 ML VIAL SQ SCH (10:45)
[2022-07-04] MEDS: OXYBUTYNIN CHLORIDE 5 MG TAB PO SCH (10:46)
[2022-07-04 12:41] VITALS: BP 162/81; TEMP 98.9
--- NOTE | 2022-07-04 13:09 | RAD REPORT ---
EXAM DESCRIPTION: RAD - Chest Single View - 07/04/2022 12:55 pm CLINICAL HISTORY: CHF, pneumonia Chest pain. COMPARISON: Chest Pa And Lat (2 Views) dated 07/01/2022; Chest Single View dated 06/29/2022; Chest Singl e View dated 06/27/2022; Chest Pa And Lat (2 Views) dated 06/27/2022 FINDINGS: Portable technique limits examination quality. Bilateral pulmonary opacities are again noted and appear essentially unchanged since prior study. The heart is mildly enlarged in size. No displaced fractures. IMPRESSION: Mild CHF without significant change since comparative study.
--- NOTE | 2022-07-05 19:53 | DS ---
Date of Discharge: 07/04/2022 Disposition: Discharged to go to [facility]. Physical Examination: HEENT: Unremarkable. Lungs: Clear to auscultation. Heart: Sounds normal. Abdomen: Soft. Bowel sounds normal. No guarding, rigidity, tenderness, distention. Extremity: No leg edema. Laboratory Data: Today; white count 6.5, hemoglobin 10.5, platelets 159. Upon admission on 06/24/20 22; white count 7, hemoglobin 11, platelets 253. Today; sodium 133, potassium 3.4, chloride 94, bica rb 39, BUN 21, creatinine 1.53, glucose 146, magnesium 2. Discharge Medications And Instructions: 1.Albuterol inhaler 2 puffs every 4 hours as needed for shortness of breath. 2.Amlodipine 5 mg daily. 3.Aspirin 81 mg daily. 4.Clopidogrel 75 mg daily. 5.Atorvastatin 20 mg daily. 6.Carvedilol 12.5 mg, the patient to take 1-1/2 tablet 2 times a day. 7.Fluoxetine 40 mg daily. 8.Furosemide 80 mg 2 times a day. 9.Gabapentin 400 mg 3 times a day. 10.Lantus 15 units subcutaneous injection daily in morning with breakfast. 11.Levothyroxine 88 mcg daily. 12.Losartan 100 mg daily. 13.Magnesium oxide 400 mg daily. 14.Oxybutynin 5 mg daily. 15.Augmentin 500 mg 2 times a day for 1 week. 16.Pantoprazole 40 mg daily. 17.Oxygen 5 L/minute nasal cannula all the time. 18.Albuterol nebulizer treatment 4 times a day as needed for shortness of breath. 19.Prednisone 10 mg, the patient to take 2 tablets by mouth daily for 4 days, then 1 tablet by mouth daily for 4 days, then half tablet by mouth daily for 4 days, then stop, take it with food. 20.Consult Physical Therapy, Occupational Therapy. 21.Fall precautions. 22.Diet, do not give any solid food and the patient to have liquid diet only. 23.Fingerstick blood sugar a.c. and at bedtime with mild sliding scale. Hospital Course: An 82-year-old very pleasant female patient, admitted to the hospital with shortnes s of breath and pain in her both feet. Please see dictated H and P for more information. After the patient was evaluated in the emergency room, she was admitted to the hospital. The patient had hypon atremia on the initial blood work with sodium level of 120. She was treated with IV diuretic therapy for congestive heart failure problem and her sodium level improved and normalized. Her gabapentin d ose was increased from 300 mg to 400 mg 3 times a day and that actually has helped to control her amanda betic neuropathy pain in her feet. Overall, her condition as far as congestive heart failure problem is concerned improved. She actually had problem with dysphagia and was to the extent that she was n ot able to swallow anything and she would bring it right back up. She denies any pain. Dr. Emmanuel from GI Service was consulted and he did EGD on her and found out that the patient had significant a mount of food retained in her almost entire esophagus that he was able to remove it and he did not se e any 1 particular area of any stricture, but he was concerned about achalasia and esophagram was ord ered, which actually confirmed this diagnosis. During EGD, he was concerned about possibility of asp iration. So prophylactically, the patient was intubated and after EGD, the patient was extubated. A fter the procedure, she was brought back to her room. She required higher amount of oxygen replaceme nt after EGD and was having some shortness of breath and hypoxia. So along with oxygen replacement, we also gave her IV Lasix again and we started her on empiric antibiotic, Zosyn. With this combinati on of treatment, her condition improved and her oxygen requirement improved and now she is down to 4- 5 L nasal cannula oxygen, maintaining adequate oxygenation. Physical Therapy was consulted. The destiney christiansen really has not been able to do much therapy and she has significant debility and generalized wea kness. She is living at home by herself and not able to return back home. Social Service was consul saul and she wanted to go to [facility] and this particular nursing facility declined to acc ept her, so today she was discharged to go to [facility] as per her choice. As per advanc ed directive, discussed with the patient, DNR order was written in the chart. The patient really has said multiple times that she is ready to and she really does not want to honestly put any effort in improving or any physical therapy and she has shown this by lack of desire or lack of willingness to do any therapy. We also recommended PEG tube placement, which she refuses PEG tube placement. S he was instructed that she will have to stay on liquid diet from now on and she has accepted that. I f she wants any further intervention done for this achalasia, she will have to go to [place] for furt her testing and management, which she does not want to do so. Her overall prognosis is poor. Final Diagnoses: 1.Congestive heart failure, chronic, systolic, with acute exacerbation. 2.Hyponatremia. 3.Pneumonia, likely aspiration pneumonia. 4.Acute respiratory failure with hypoxia. 5.Diabetic neuropathy. 6.Anemia, chronic, unspecified. 7.Hypertension. 8.Hyperlipidemia. 9.Coronary artery disease. 10.Type 2 diabetes mellitus. 11.Hypomagnesemia. 12.Hypothyroidism. JAVY/MODL Voice ID: [id number] Report ID: [id number]
== END 2022-07-04 15:51 | DRG 291 ==
LOC: ER 19:01 → ERHOLD 22:07 → 2ND 23:27
PROVIDERS: ADMIT Internal Medicine; ATTEND Internal Medicine
PROC: 0DC58ZZ Extirpation of Matter from Esophagus, Via Natural or Artificial Opening Endoscopic (ICD-10-PCS; principal; 2022-06-27 12:15)
DX: I13.0 Hypertensive heart and chronic kidney disease with heart failure and stage 1 through stage 4 chronic kidney disease, or unspecified chronic kidney disease (principal); I50.23 Acute on chronic systolic (congestive) heart failure; J96.01 Acute respiratory failure with hypoxia; J69.0 Pneumonitis due to inhalation of food and vomit; E87.1 Hypo-osmolality and hyponatremia; N18.32 Chronic kidney disease, stage 3b; E11.22 Type 2 diabetes mellitus with diabetic chronic kidney disease; I25.10 Atherosclerotic heart disease of native coronary artery without angina pectoris; E11.40 Type 2 diabetes mellitus with diabetic neuropathy, unspecified; E78.5 Hyperlipidemia, unspecified; E83.42 Hypomagnesemia; E03.9 Hypothyroidism, unspecified; K22.2 Esophageal obstruction; T18.128A Food in esophagus causing other injury, initial encounter; D64.9 Anemia, unspecified; K22.0 Achalasia of cardia; R53.81 Other malaise; Z66 Do not resuscitate; R13.10 Dysphagia, unspecified; Z20.822 Contact with and (suspected) exposure to COVID-19
CPT/HCPCS: 36415; 71045; 71046; 71250; 74220; 74230; 80048; 80053; 80076; 82947; 83735; 83880; 84132; 84439; 84443; 84484; 85025; 85610; 87811; 92611; 93005; 93306; 93970; 94002; 94003; 94640; 94760; 96374; 96375; 97110; 97116; 97161; 97530; 99285; C9113; J1644; J1815; J1940; J2543; J2930; J3480; J7030; J7042; J7120; U0003

== ENCOUNTER 2022-08-02 13:22 | Inpatient (IN) | payer OTHER, MEDICARE ==
--- NOTE | 2022-08-02 14:34 | RAD REPORT ---
EXAM DESCRIPTION: RAD - Chest Single View - 08/02/2022 2:23 pm CLINICAL HISTORY: fatigue Chest pain. COMPARISON: Chest Single View dated 07/04/2022; Chest Pa And Lat (2 Views) dated 07/01/2022; Chest Singl e View dated 06/29/2022; Chest Single View dated 06/27/2022 FINDINGS: Portable technique limits examination quality. The lungs are grossly clear. The heart is normal in size. No displaced fractures. IMPRESSION: No acute intrathoracic process suspected.
[2022-08-02 14:50] LABS: Absolute Lymphocytes (CBC) 3.2 K/uL (0.7-4.9); Hematocrit 35.5 % (36.0-45.0); Lymphocytes % 26.4 % (15.3-44.8); MCV 86.8 fL (80-100); MPV 8.3 fL (7.6-11.3); RBC Red Blood Cell Count 4.08 M/uL (3.86-4.86)
[2022-08-02 14:52] LABS: Blood Morphology Comment NOT SEEN (NOT SEEN); Platelet Estimate ADEQ; White Blood Cell Scan OK (OK)
[2022-08-02 15:48] LABS: Troponin High Sensitivity 24.3 pg/mL (<58.9)
[2022-08-02 15:52] LABS: Potassium 2.5 mmol/L (3.5-5.1)
--- NOTE | 2022-08-02 16:48 | ER ---
Nurse's Notes [facility] Name: Tsering Osman Age: 82 yrs Sex: Female : 1940 Arrival Date: 08/02/2022 Time: 13:29 Bed 6 Private MD: Diagnosis: Hypokalemia;Altered mental status, unspecified Presentation: 08/02 13:36 Chief complaint: EMS states: " Daughter states that she visited her mother and appeared em6 more altered than usual. She usually talks in few word, but today she just seemed different. on our way here she's been responsive to verbal stimuli and states that she's tired. BP 100/70 O2 92% on 2 L of 02 and Blood sugar 99. EKG was NSR. NKA. Coronavirus screen: At this time, the client does not indicate any symptoms associated with coronavirus-19. Ebola Screen: Patient negative for fever greater than or equal to 101.5 degrees Fahrenheit, and additional compatible Ebola Virus Disease symptoms. Initial Sepsis Screen: Does the patient meet any 2 criteria? Altered Mental Status. No. Patient's initial sepsis screen is negative. Does the patient have a suspected source of infection? No. Patient's initial sepsis screen is negative. Risk Assessment: Do you want to hurt yourself or someone else? Patient reports no desire to harm self or others. Onset of symptoms was August 01, 2022. 13:36 Method Of Arrival: EMS: [facility] em6 13:36 Acuity: MANNIE 2 em6 Triage Assessment: 13:42 General: Appears comfortable, ill, Behavior is listless, quiet. Pain: Denies pain. em6 EENT: Oral mucosa is dry. Neuro: Grover Agitation-Sedation Scale (RASS): -1 Drowsy Level of Consciousness is awake, alert, listless, Oriented to. Cardiovascular: Heart tones present Rhythm is sinus rhythm. Respiratory: Airway is patent Respiratory effort is even, unlabored, Respiratory pattern is regular, symmetrical, Breath sounds are clear bilaterally. GI: Abdomen is round non-distended, Abd is soft and non tender X 4 quads. : No signs and/or symptoms were reported regarding the genitourinary system. Derm: Parent/caregiver reports the patient having caregiver reports that they have been treating her for a pressure ulcer in her lower sacral area. Dressing is clean, dry intact and no drainage noted. Musculoskeletal: Range of motion: limited in all extremities. Historical: - Allergies: 14:43 NKA; em6 - Home Meds: 14:43 aspirin 81 mg Oral chew 1 tab once daily [Active]; atorvastatin 20 mg Oral tab 1 tab em6 nightly [Active]; Centrum Silver Oral daily [Active]; Coreg 6.25 mg Oral tab 1 tab 2 times per day [Active]; ferrous sulfate 325 mg (65 mg iron) Oral tab 2 tab daily [Active]; Flovent Inhl 100 mcg twice a day [Active]; furosemide 40 mg Oral tab 1 tab 2 times per day [Active]; gabapentin 300 mg Oral cap 3 times per day [Active]; glimepiride 4 mg Oral tab 1 tab twice a day [Active]; insulin [Active]; magnesium oxide 400 mg Oral tab 400 mg daily [Active]; Onglyza 5 mg Oral tab 1 tab once daily [Active]; Oxybutynin Chloride Oral 1 tab once daily [Active]; Plavix 75 mg Oral tab 1 tab once daily [Active]; trazodone 50 mg Oral tab nightly [Active]; Ventolin HFA 90 mcg/actuation Nebulizer HFAA 2 puffs Q4H prn [Active]; - PMHx: 14:43 Asthma; CHF; Diabetes - IDDM; Diabetes - NIDDM; Hyperlipidemia; Hypertension; em6 neuropathy; - PSHx: 14:43 R knee replacement; heart stent; back sx; em6 - Immunization history:: Adult Immunizations unknown. - Social history:: Smoking status: unknown. Screenin:42 Abuse screen: Denies threats or abuse. Nutritional screening: No deficits noted. em6 Tuberculosis screening: No symptoms or risk factors identified. 14:30 Fall Risk Secondary diagnosis (15 points) IV access (20 points). Ambulatory Aid- em6 None/Bed Rest/Nurse Assist (0 pts). Gait- Normal/Bed Rest/Wheelchair (0 pts) Mental Status- Overestimates/Forgets Limitations (15 pts.). Total Handy Fall Scale indicates High Risk Score (45 or more points). Fall prevention measures have been instituted. Side Rails Up X 2 Placed Close to Nursing Station Frequent Obs/Assessments Occuring Family Present and informed to notify staff if the need to leave the bedside As available patient and family educated on Fall Prevention Program and Strategies. Assessment: 13:42 General: see triage assessment. . em6 15:00 Reassessment: Patient appears in no apparent distress at this time. No changes from em6 previously documented assessment. Patient and/or family updated on plan of care and expected duration. Pain level reassessed. Neuro: Level of Consciousness is awake, alert, listless. 16:00 Reassessment: Patient appears in no apparent distress at this time. No changes from em6 previously documented assessment. Patient and/or family updated on plan of care and expected duration. Pain level reassessed. 17:00 Reassessment: Patient appears in no apparent distress at this time. No changes from em6 previously documented assessment. Patient and/or family updated on plan of care and expected duration. Pain level reassessed. 18:00 Reassessment: Patient appears in no apparent distress at this time. Patient and/or em6 family updated on plan of care and expected duration. Pain level reassessed. Neuro: Level of Consciousness is awake, alert. 20:26 Reassessment: pt is awake but oriented to 0, resp unlabored, pt uncomfortable moaning, bb IV site intact, patent, with no erythema or edema noted notified of room assignment, family at bedside. 22:30 Reassessment: No changes from previously documented assessment. report called to Fuad noble RN for room 431. Vital Signs: 13:36 BP 120 / 51; Pulse 76; Resp 16; Temp 98.4; Pulse Ox 93% on 2 lpm NC; Weight 86.18 kg; em6 Height 5 ft. 8 in. (172.72 cm); Pain 0/10; 15:05 BP 131 / 55; Pulse 74; Resp 20; Pulse Ox 93% 2 lpm ; em6 16:00 BP 122 / 56; Pulse 68; Resp 20; Pulse Ox 95% on 2 lpm NC; em6 17:00 BP 135 / 61; Pulse 76; Resp 19; Pulse Ox 96% on 2 lpm NC; em6 18:00 BP 136 / 54; Pulse 73; Resp 19; Pulse Ox 95% on 2 lpm NC; em6 20:28 BP 130 / 56; Pulse 71; Resp 20 S; Temp 98(TE); Pulse Ox 96% on 3 lpm NC; bb 22:31 BP 121 / 53; Pulse 72; Resp 20 S; Pulse Ox 93% on 3 lpm NC; bb 13:36 Body Mass Index 28.89 (86.18 kg, 172.72 cm) em6 ED Course: 13:29 Patient arrived in ED. ms3 13:29 Evans Hunt DO is Attending Physician. ms3 13:40 Arm band placed on. em6 13:42 Triage completed. em6 13:42 Bed in low position. Call light in reach. Side rails up X2. Adult w/ patient. Cardiac em6 monitor on. Pulse ox on. NIBP on. Warm blanket given. 13:52 Theron Scruggs, RN is Primary Nurse. jd3 14:24 XRAY Chest (1 view) In Process Unspecified. EDMS 15:07 Inserted saline lock: 22 gauge in left antecubital area, using aseptic technique. Blood jd3 collected. 16:46 Alexia Arellano MD is Hospitalizing Provider. ms3 19:20 Urine Microscopic Only Sent. em6 20:29 No provider procedures requiring assistance completed. Patient admitted, IV remains in bb place. Administered Medications: 16:56 Drug: Potassium Chloride 20 mEq Route: IV; Rate: calculated rate; Site: right em6 antecubital; 18:56 Follow up: Response: No adverse reaction; IV Status: Completed infusion jd3 19:20 Follow up: Response: No adverse reaction; IV Status: Completed infusion em6 19:55 Drug: Rocephin (cefTRIAXone) 1 grams Route: IV; Rate: calculated rate; Site: left bb antecubital; Medication: 14:55 VIS not applicable for this client. em6 Outcome: 16:47 Decision to Hospitalize by Provider. ms3 20:28 Admitted to Tele accompanied by tech, family with patient, via stretcher, room 431, bb with oxygen, with chart. 20:28 Condition: stable 20:28 Instructed on the need for admit. 22:41 Patient left the ED. bb Signatures: Dispatcher [employer] EDAvis Brooks RN RN bb Davies, Jonathon, Evans Klein RN, DO DO ms3 Lana Rodriguez RN RN em6 Corrections: (The following items were deleted from the chart) 17:38 15:00 Neuro: Level of Consciousness is awake, alert, obeys commands, confused, em6 em6 19:19 15:00 Neuro: Grover Agitation-Sedation Scale (RASS): -1 Drowsy Level of Consciousness em6 is awake, alert, listless, em6 19:26 15:05 BP 131 / 55; Pulse 74bpm; Resp 20bpm; Pulse Ox 93%; em6 em6
--- NOTE | 2022-08-02 16:48 | EDPHYS ---
Physician Documentation [facility] Name: Tsering Osman Age: 82 yrs Sex: Female : 1940 Arrival Date: 08/02/2022 Time: 13:29 Bed 6 Private MD: ED Physician Evans Hunt HPI: 08/02 16:21 This 82 yrs old Female presents to ER via EMS with complaints of Altered Mental Status. ms3 16:21 82-year-old female with past medical history of asthma, congestive heart failure, ms3 diabetes, hyperlipidemia presents for increased altered mental status that began yesterday. EMS states patient has had fatigue and stated multiple times she is tired. Patient denies pain at this time. Patient denies alleviating or inciting factors.. Historical: - Allergies: 14:43 NKA; em6 - Home Meds: 14:43 aspirin 81 mg Oral chew 1 tab once daily [Active]; atorvastatin 20 mg Oral tab 1 tab em6 nightly [Active]; Centrum Silver Oral daily [Active]; Coreg 6.25 mg Oral tab 1 tab 2 times per day [Active]; ferrous sulfate 325 mg (65 mg iron) Oral tab 2 tab daily [Active]; Flovent Inhl 100 mcg twice a day [Active]; furosemide 40 mg Oral tab 1 tab 2 times per day [Active]; gabapentin 300 mg Oral cap 3 times per day [Active]; glimepiride 4 mg Oral tab 1 tab twice a day [Active]; insulin [Active]; magnesium oxide 400 mg Oral tab 400 mg daily [Active]; Onglyza 5 mg Oral tab 1 tab once daily [Active]; Oxybutynin Chloride Oral 1 tab once daily [Active]; Plavix 75 mg Oral tab 1 tab once daily [Active]; trazodone 50 mg Oral tab nightly [Active]; Ventolin HFA 90 mcg/actuation Nebulizer HFAA 2 puffs Q4H prn [Active]; - PMHx: 14:43 Asthma; CHF; Diabetes - IDDM; Diabetes - NIDDM; Hyperlipidemia; Hypertension; em6 neuropathy; - PSHx: 14:43 R knee replacement; heart stent; back sx; em6 - Immunization history:: Adult Immunizations unknown. - Social history:: Smoking status: unknown. ROS: 16:21 Neck: Negative for injury, pain, and swelling, Cardiovascular: Negative for chest pain, ms3 and palpitations. Respiratory: Negative for shortness of breath, cough, wheezing, and pleuritic chest pain, Abdomen/GI: Negative for abdominal pain, nausea, vomiting, diarrhea, and constipation. 16:21 Constitutional: Positive for fatigue. 16:21 All other systems are negative. Exam: 14:02 ECG was reviewed by the Attending Physician. ms3 16:21 Constitutional: This is a well developed, well nourished patient who is awake, alert, ms3 and in no acute distress. Head/Face: Normocephalic, atraumatic. Neck: Trachea midline, no cervical lymphadenopathy. Supple, full range of motion without nuchal rigidity, or vertebral point tenderness. No Meningismus. Chest/axilla: Normal chest wall appearance and motion. Nontender with no deformity. Cardiovascular: Regular rate and rhythm with a normal S1 and S2. No gallops, murmurs, or rubs. Normal PMI, no JVD. No pulse deficits. Respiratory: Lungs have equal breath sounds bilaterally, clear to auscultation and percussion. No rales, rhonchi or wheezes noted. No increased work of breathing, no retractions or nasal flaring. Abdomen/GI: Soft, non-tender, with normal bowel sounds. No distension or tympany. No guarding or rebound. No evidence of tenderness throughout. Skin: Warm, dry with normal turgor. Normal color with no rashes, no lesions, and no evidence of cellulitis. MS/ Extremity: Pulses equal, no cyanosis. Neurovascular intact. Full, normal range of motion. Vital Signs: 13:36 BP 120 / 51; Pulse 76; Resp 16; Temp 98.4; Pulse Ox 93% on 2 lpm NC; Weight 86.18 kg; em6 Height 5 ft. 8 in. (172.72 cm); Pain 0/10; 15:05 BP 131 / 55; Pulse 74; Resp 20; Pulse Ox 93% 2 lpm ; em6 16:00 BP 122 / 56; Pulse 68; Resp 20; Pulse Ox 95% on 2 lpm NC; em6 17:00 BP 135 / 61; Pulse 76; Resp 19; Pulse Ox 96% on 2 lpm NC; em6 18:00 BP 136 / 54; Pulse 73; Resp 19; Pulse Ox 95% on 2 lpm NC; em6 20:28 BP 130 / 56; Pulse 71; Resp 20 S; Temp 98(TE); Pulse Ox 96% on 3 lpm NC; bb 22:31 BP 121 / 53; Pulse 72; Resp 20 S; Pulse Ox 93% on 3 lpm NC; bb 13:36 Body Mass Index 28.89 (86.18 kg, 172.72 cm) em6 MDM: 13:29 Patient medically screened. ms3 16:21 Differential Diagnosis: electrolyte abnormality, pneumonia, UTI, volume depletion. ms3 17:31 ED course: Dr Arellano would like patient placed in observation. He discussed this with ms3 patient and her .. 19:41 Data reviewed: vital signs, nurses notes, lab test result(s), EKG, radiologic studies, ms3 and as a result, I will admit patient. Data interpreted: pvc monitor: rate is 70 beats/min, rhythm is normal sinus rhythm, regular, with no ectopy, Interpretation: normal rate, normal rhythm. Counseling: I had a detailed discussion with the patient and/or guardian regarding: the historical points, exam findings, and any diagnostic results supporting the discharge/admit diagnosis, lab results, radiology results, the need for further work-up and treatment in the hospital, to return to the emergency department if symptoms worsen or persist or if there are any questions or concerns that arise at home. 08/02 13:45 Order name: Basic Metabolic Panel; Complete Time: 15:58 ms3 08/02 13:45 Order name: CBC with Diff; Complete Time: 15:58 ms3 08/02 13:45 Order name: Troponin HS; Complete Time: 15:58 ms3 08/02 14:53 Order name: CBC Smear Scan; Complete Time: 15:58 EDMS 08/02 16:11 Order name: Urine Microscopic Only; Complete Time: 19:42 ms3 08/02 17:45 Order name: Basic Metabolic Panel EDMS 08/02 13:45 Order name: XRAY Chest (1 view); Complete Time: 14:36 ms3 08/02 17:45 Order name: Basic Metabolic Panel EDMS 08/02 17:45 Order name: CBC with Automated Diff EDMS 08/02 17:45 Order name: CBC with Automated Diff EDMS 08/02 18:48 Order name: SARS-COV-2 Antigen Rapid bd 08/02 19:16 Order name: SARS-COV-2 Antigen Rapid; Complete Time: 19:42 EDMS 08/02 13:45 Order name: EKG; Complete Time: 13:46 ms3 08/02 13:45 Order name: Cardiac monitoring; Complete Time: 13:51 ms3 08/02 13:45 Order name: EKG - Nurse/Tech; Complete Time: 14:37 ms3 08/02 13:45 Order name: IV Saline Lock; Complete Time: 15:07 ms3 08/02 13:45 Order name: Labs collected and sent; Complete Time: 14:35 ms3 08/02 13:45 Order name: O2 Per Protocol; Complete Time: 13:51 ms3 08/02 13:45 Order name: O2 Sat Monitoring; Complete Time: 13:51 ms3 08/02 14:50 Order name: Labs - recollect needed: recollect green top; Complete Time: 15:07 bd EC:02 Rate is 85 beats/min. Rhythm is regular. QRS [place] is Normal. TN interval is normal. ms3 Clinical impression: NSR w/ Non-specific ST/T Changes. Interpreted by me. Reviewed by me. Administered Medications: 16:56 Drug: Potassium Chloride 20 mEq Route: IV; Rate: calculated rate; Site: right em6 antecubital; 18:56 Follow up: Response: No adverse reaction; IV Status: Completed infusion jd3 19:20 Follow up: Response: No adverse reaction; IV Status: Completed infusion em6 19:55 Drug: Rocephin (cefTRIAXone) 1 grams Route: IV; Rate: calculated rate; Site: left bb antecubital; Disposition Summary: 08/02/22 16:47 Hospitalization Ordered Hospitalization Status: Inpatient Admission ms3 Provider: Alexia Arellano ms3 Location: Telemetry/MedSurg (Inpatient) ms3 Condition: Stable ms3 Problem: new ms3 Symptoms: are unchanged ms3 Bed/Room Type: Standard ms3 Room Assignment: 431(08/02/22 19:23) dw Diagnosis - Hypokalemia ms3 - Altered mental status, unspecified ms3 Forms: - Medication Reconciliation Form ms3 - SBAR form ms3 Signatures: Dispatcher [employer] EDMarta Kevin Diana, RN RN Avis Yarbrough RN RN Evans Lynn DO DO ms3 Lana Rodriguez RN RN em6 Theron Scruggs RN jd3 Corrections: (The following items were deleted from the chart) : 16:47 ms3 dw
[2022-08-02] MEDS ORDERED: KCL 20 MEQ/100 mL IVPB 100 ML IV ONE (16:55)
[2022-08-02] MEDS ORDERED: NA CHLORIDE 0.9% 100 ML ONE (16:58)
[2022-08-02] MEDS ORDERED: ONDANSETRON 4 MG/2 ML VIAL IV PRN (17:39)
[2022-08-02] MEDS ORDERED: ACETAMINOPHEN 500 MG TAB PO PRN (17:39)
[2022-08-02] MEDS ORDERED: NA CHLORIDE 0.9% 1,000 ML IV SCH (18:00)
[2022-08-02] MEDS: KCL 20 MEQ/100 mL IVPB 20 MEQ/100 ML BAG IV SCH ×2 (18:00→23:11)
[2022-08-02 19:16] LABS: SARS-CoV-2 Antigen Rapid Res Negative (Negative)
[2022-08-02 19:33] LABS: Urine Bacteria >50 /HPF (<20)
[2022-08-02] MEDS: CEFTRIAXONE 1,000 MG in NA CHLORIDE 0.9% 50 ML IVPB SCH (20:00)
[2022-08-02] MEDS ORDERED: CEFTRIAXONE 1000 MG/VIAL ONE (20:08)
[2022-08-02] MEDS ORDERED: D50W 25 GM/50 ML SYRINGE IV PRN (21:25)
[2022-08-02] MEDS ORDERED: GLUCAGON 1 MG/VIAL IM PRN (21:25)
[2022-08-02] MEDS ORDERED: D10W 125 ML IV PRN (21:33)
[2022-08-02] MEDS: D5 0.45 NS 1,000 ML IV SCH (23:11)
[2022-08-02] MEDS: HEPARIN 5000 UNIT/ML 1 ML VIAL SQ SCH (23:11)
[2022-08-03 02:30] VITALS: BMI 28.8
[2022-08-03 03:49] LABS: Absolute Lymphocytes (CBC) 1.1 K/uL (0.7-4.9); Hematocrit 33.9 % (36.0-45.0); Lymphocytes % 13.2 % (15.3-44.8); MCV 87.8 fL (80-100); MPV 8.1 fL (7.6-11.3); RBC Red Blood Cell Count 3.86 M/uL (3.86-4.86)
[2022-08-03 04:14] LABS: Albumin 2.3 g/dL (3.4-5.0); Bilirubin Total 0.5 mg/dL (0.2-1.0); Magnesium 2.4 mg/dL (1.8-2.4); Protein, Total 6.5 g/dL (6.4-8.2)
[2022-08-03 04:16] LABS: Potassium 2.7 mmol/L (3.5-5.1)
[2022-08-03] MEDS: KCL 20 MEQ/100 mL IVPB 20 MEQ/100 ML BAG IV SCH ×3 (04:44→09:12)
--- NOTE | 2022-08-03 06:58 | HP ---
Date of Admission: 08/02/2022 Chief Complaint: Altered mental status. History Of Present Illness: This is an 82-year-old pleasant female patient who is in the jail for last month or so, was sent to emergency room today with altered mental status after nurse contacted me and informed me that the patient was appearing very sleepy and she was having confusion. This was noted today by nursing staff and I was contacted. Her blood pressure was stable. Fingerstick blood sugar was around 93 or so, and nurse was advised to send her to the emergency room. After she was evaluated in the ER, she was admitted to the hospital with urinary tract infection, acute kidney injury, and volume depletion. I saw her in the emergency room. The patient appeared very weak, sleepy. She opened her eyes, looked at me and smiled, but did not answer any questions. Daughter was with her at bedside, who reports that yesterday when she visited the patient, the patient was appearing weaker than usual and had trouble completing sentences. No vomiting. No diarrhea. No fever or chills. No abdominal pain. Medications: List reviewed. Allergies: NO KNOWN ALLERGIES. Review of Systems: Constitutional: As mentioned above, all other systems reviewed and negative. Past Medical History: Significant for achalasia cardia, peripheral neuropathy due to diabetes, allergic rhinitis, type 2 diabetes mellitus, asthma, pulmonary hypertension, hyperlipidemia, coronary artery disease, chronic systolic heart failure, hypertension, chronic kidney disease, osteoarthritis at multiple sites, hypomagnesemia, anemia, monoclonal gammopathy of unknown significance, depression, and osteopenia. Past Surgical History: Hysterectomy, back surgery, knee surgery. Family History: Mother had lung cancer. Social History: Negative for smoking and alcohol use. Physical Examination: Vital Signs: Temperature 97.8, pulse 79, respiratory rate 18, blood pressure 133/59, oxygen saturation 96%, height 5 feet and 8 inches, and weight 190 pounds. General: The patient appears very weak, tired, and sleepy. Does not answer any questions. Not in any distress. HEENT: Head atraumatic, normocephalic. Conjunctivae nonerythematous. Sclerae white. Mouth: The patient's oral mucosa is very dry. Ears/Nose, no mass, lesion, discharge noted. Neck: Supple. No JVD, lymph nodes, bruit, thyromegaly noted. Lungs: Bilateral good equal air entry. Clear to auscultation. No rhonchi. No rales. Heart: Normal heart sounds, no murmur or gallop. Abdomen: Soft, bowel sounds normal. No guarding, rigidity, tenderness, mass, hepatosplenomegaly, distention, or bruit noted. Extremities: No leg edema. No calf tenderness. Skin: No rash, ulcer, cellulitis. Lymphatics: No lymph node enlargement in neck, supraclavicular, infraclavicular region. Neuro: No focal neurological deficit. Chest: Unremarkable. External Genitalia: Deferred. Rectal: Deferred. Laboratory Data: White count 12, hemoglobin 11.9, platelets 185. COVID-19 test negative. Sodium 140, potassium 2.5, chloride 95, bicarb 37, BUN 134, creatinine 2.02, glucose 75. Troponin 24.3. Urinalysis more than 50 wbc's, more than 50 bacteria. Chest x-ray, no acute cardiopulmonary changes. Impression: 1. Acute kidney failure. 2. Volume depletion. 3. Urinary tract infection. 4. Encephalopathy, metabolic. 5. Hypokalemia. 6. Chronic systolic heart failure. 7. Coronary artery disease. 8. Hypertension. 9. Hyperlipidemia. 10. Type 2 diabetes mellitus. 11. Asthma. 12. Osteoarthritis, multiple sites. 13. Hypomagnesemia. 14. Anemia. Plan: We will go ahead and admit the patient to hospital for further evaluation and management of this problem. The patient is appropriate for inpatient and is expected to spend 2 midnights in hospital. We will go ahead and give her IV fluid instead of normal saline. I will change it to D5 half-normal saline. Monitor electrolytes, renal function with tomorrow morning's blood work. Empiric antibiotic, ceftriaxone will be started. We will follow up on urine culture and if necessary make adjustment on antibiotics. Replace potassium per order 20 mEq of potassium replacement x3 doses, has to be given when I communicated with the ER physician. We will go ahead and give her DVT prophylaxis using heparin per order. As per my discussion with the patient in the past, she wanted DNR order to be in place today. I did communicate with the patient's daughter to confirm that decision and DNR order was placed in the chart. We will monitor fingerstick blood sugar with mild sliding scale. Rest of her usual medications will be restarted at appropriate time. I will see her tomorrow morning for followup. JAVY/BRAULIO Voice ID: [id number] ELYSSA
[2022-08-03] MEDS: INSULIN -REGULAR HUMAN 50 UNIT/0.5 ML ML SQ SCH ×4 (07:30→21:45)
[2022-08-03] MEDS: D5 0.45 NS 1,000 ML IV SCH ×2 (09:11→17:48)
[2022-08-03] MEDS: HEPARIN 5000 UNIT/ML 1 ML VIAL SQ SCH ×2 (09:11→21:44)
--- NOTE | 2022-08-03 10:53 | EKG ---
Test Date: 2022-08-02 Test Time: 14:02:06 Treatment Plant Mechanic: MEASUREMENT RESULTS: Intervals: Rate: 85 [place]: QRSD: 92 QT: 394 QTc: 468 [place]: P: TX: QRS: 3 T: 60 INTERPRETIVE STATEMENTS: Accelerated Junctional rhythm Anterior infarct, age undetermined Abnormal ECG Compared to ECG 06/24/2022 19:22:41 Accelerated junctional rhythm now present Sinus rhythm no longer present First degree AV block no longer present Myocardial infarct finding still present Electronically Signed On 08-03-22 10:50:24 CDT by Dariel Paulino
--- NOTE | 2022-08-03 10:53 | EKG ---
Test Date: 2022-08-02 Test Time: 14:01:25 Drugless Physician: MEASUREMENT RESULTS: Intervals: Rate: 86 [place]: QRSD: 92 QT: 408 QTc: 488 [place]: P: DE: QRS: 4 T: 59 INTERPRETIVE STATEMENTS: Accelerated Junctional rhythm with occasional premature ventricular complexes Anterior infarct, age undetermined Abnormal ECG Compared to ECG 06/24/2022 19:22:41 Accelerated junctional rhythm now present Ventricular premature complex(es) now present Sinus rhythm no longer present First degree AV block no longer present Myocardial infarct finding still present Electronically Signed On 08-03-22 10:50:26 CDT by Dariel Paulino
[2022-08-03] MEDS ORDERED: POTASSIUM CL SA 10 MEQ TAB PO ONE (15:18)
[2022-08-03] MEDS ORDERED: CEFTRIAXONE 1000 MG/VIAL ONE (20:12)
[2022-08-03] MEDS ORDERED: NA CHLORIDE 0.9% 50 ML ONE (21:11)
[2022-08-03] MEDS: CEFTRIAXONE 1,000 MG in NA CHLORIDE 0.9% 50 ML IVPB SCH (21:43)
[2022-08-04 06:33] LABS: Magnesium 2.5 mg/dL (1.8-2.4); Potassium 3.3 mmol/L (3.5-5.1)
[2022-08-04] MEDS: INSULIN -REGULAR HUMAN 50 UNIT/0.5 ML ML SQ SCH ×4 (07:30→21:00)
[2022-08-04] MEDS ORDERED: POTASSIUM CL SA 10 MEQ TAB PO ONE (09:00)
[2022-08-04] MEDS: HEPARIN 5000 UNIT/ML 1 ML VIAL SQ SCH ×2 (09:53→22:13)
[2022-08-04] MEDS ORDERED: carvediloL 6.25 MG TAB PO ONE (11:00)
[2022-08-04] MEDS: D5 0.45 NS 1,000 ML IV SCH (12:03)
--- NOTE | 2022-08-04 14:15 | PN ---
Date of Progress Note: 08/03/2022 Subjective: The patient was seen this morning for followup. No new complaints or problems reported by her. She was lying in bed, sleeping, arousable, looks little better than yesterday. Still has al tered mental status, but slight improvement noted today. Objective: Vital Signs: Reviewed. HEENT: Unremarkable. Lungs: Clear to auscultation. Heart: Sounds normal. Abdomen: Soft. Bowel sounds normal. No guarding, rigidity, tenderness, or distention. Extremities: No leg edema. Laboratory Data: White count 8.4, hemoglobin 11.7, platelets 156. Sodium 140, potassium 3.7, chlori de 100, bicarb 35, BUN 116, creatinine 1.84, glucose 125. Liver function tests unremarkable. Impression: 1.Acute kidney injury. 2.Volume depletion. 3.Urinary tract infection. 4.Hypokalemia. Plan: We will go ahead and replace potassium per protocol. Continue current IV fluid. Volume deple tion and acute kidney injury problems are improving well with IV fluid hydration. We will repeat blo od work tomorrow. Continue current empiric antibiotic and once her mental status improves and she is able to swallow safely we will start to feed her diet. Order was given to nursing staff. JAVY/MODL Voice ID: [id number] Report ID: [id number]
--- NOTE | 2022-08-04 19:19 | PN ---
Date of Progress Note: 08/04/2022 Subjective: Patient was seen this morning for followup. Her daughter was with her at bedside. She is still having significant altered mental status, but it is little better than what it was at the ti me of admission. She wakes up, open her eyes, but not able to carry out any meaningful conversation. Does not answer any questions. Objective: Vital Signs: Reviewed. HEENT: Unremarkable except dry tongue and dry oral mucosa still present. Lungs: Clear to auscultation. Heart: Sounds normal. Abdomen: Soft. Bowel sounds normal. No guarding, rigidity, tenderness, or distention. Extremities : No leg edema. Laboratory Data: Sodium 143, potassium 3.3, chloride 105, bicarb 33, BUN 81, creatinine 1.56, glucos e 215. Impression: 1.Acute kidney injury. 2.Volume depletion. 3.Hypokalemia. 4.Achalasia cardia. Plan: We will go ahead and continue current IV fluid. Replace electrolyte per protocol. We will re peat blood work tomorrow. The patient was not drinking enough liquid at [facility] and she was on liquid diet and she really does not like that. Daughter was telling me that if possible, they would like to go ahead and at least have some soft food and I did discuss possible increased risk of chokin g and aspiration type of problem, but we can try to see if she tolerates that because liquid diet, sh e is just simply not getting adequate nutrition or hydration with that as we have seen and as per my discussion with the daughter and daughter understands and she agrees to try soft diet with understand ing that might be somewhat increased risk with that with choking and type of episode with her achalas ia problem compared to liquid diet, but she is willing to take that risk. The patient has refused fo od as per our discussion with her in the past. So, once her mental status improves, we will try soft diet for home. Continue current antibiotic for urinary tract infection and we will see her tomorrow for followup. JAVY/MODL Voice ID: [id number] Report ID: [id number]
[2022-08-04] MEDS: CEFTRIAXONE 1,000 MG in NA CHLORIDE 0.9% 50 ML IVPB SCH (20:00)
[2022-08-04] MEDS: carvediloL 6.25 MG TAB PO SCH (22:11)
[2022-08-05] MEDS: D5 0.45 NS 1,000 ML IV SCH ×4 (01:44→18:27)
[2022-08-05] MEDS: INSULIN -REGULAR HUMAN 50 UNIT/0.5 ML ML SQ SCH ×4 (07:30→21:00)
[2022-08-05 07:41] LABS: Absolute Lymphocytes (CBC) 1.9 K/uL (0.7-4.9); Hematocrit 31.5 % (36.0-45.0); Lymphocytes % 34.6 % (15.3-44.8); MCV 87.3 fL (80-100); RBC Red Blood Cell Count 3.61 M/uL (3.86-4.86)
[2022-08-05 07:48] LABS: Magnesium 2.1 mg/dL (1.8-2.4); Potassium 3.5 mmol/L (3.5-5.1)
[2022-08-05] MEDS ORDERED: POTASSIUM CL SA 10 MEQ TAB PO ONE (08:20)
[2022-08-05] MEDS: carvediloL 6.25 MG TAB PO SCH ×2 (10:19→21:01)
[2022-08-05] MEDS: HEPARIN 5000 UNIT/ML 1 ML VIAL SQ SCH ×2 (10:19→21:01)
[2022-08-05] MEDS: Meropenem 1,000 MG in NA CHLORIDE 0.9% 100 ML IV SCH ×2 (10:20→21:01)
--- NOTE | 2022-08-05 12:07 | PN ---
Date of Progress Note: 08/05/2022 Subjective: The patient was seen this morning for followup. No new complaints or problems reported by the patient. Overall, her mental status has improved. There is still confusion noted as reported by the patient's daughter and obviously she is better, but not back to her baseline yet. She is kassidy erating diet well, although her appetite is very poor. Objective: Vital Signs: Reviewed. HEENT: Unremarkable. Lungs: Clear to auscultation. Heart: Sounds normal. Abdomen: Soft. Bowel sounds normal. No guarding, rigidity, tenderness, or distention. Extremities: No leg edema. Laboratory Data: White count 5.4, hemoglobin 10.8, platelets 166. Sodium 142, potassium 3.5, chlori de 106, bicarb 32, BUN 56, creatinine 1.43, glucose 208, magnesium 2.1. Impression: 1.Acute kidney injury. 2.Volume depletion. 3.Urinary tract infection, organism Escherichia coli, ESBL. Plan: Urine culture results reviewed. The patient is currently on ceftriaxone. We will discontinue that and start her on meropenem 1000 mg IV every 12 hours. Continue IV fluid, but reduce rate from 75 cc to 40 cc/hour. The patient will need a PICC line placement and once we have PICC line in place , then we can plan to discharge her to go back to senior care. Details were discussed with the paulie ent's daughter and the patient today. Upon discharge, we will have to discontinue her diuretic medic ation that she normally takes on a routine basis because her oral intake of food and liquids has gone down lately and at this point, risk of diuretic medication is more than the benefit and in the future if we need to restart diuretic medication, we will definitely need to consider that. JAVY/MODL Voice ID: [id number] Report ID: [id number]
--- NOTE | 2022-08-05 18:13 | RAD REPORT ---
EXAM DESCRIPTION: RAD - Chest Single View - 08/05/2022 5:01 pm CLINICAL HISTORY: PICC line placement COMPARISON: Chest Single View dated 08/02/2022; Chest Single View dated 07/04/2022; Chest Pa And Lat (2 Views) dated 07/01/2022; Chest Single View dated 06/29/2022 FINDINGS: Lines: The PICC tip overlies the SVC. Lungs: No evidence of edema or pneumonia. Pleural: No significant pleural effusions or pneumothorax. Cardiac: Similar size and configuration. Mediastinum: Within normal limits. Bones: No acute fractures. Other: None IMPRESSION: No acute cardiopulmonary disease. PICC tip overlies the SVC in satisfactory position.
[2022-08-06] MEDS: INSULIN -REGULAR HUMAN 50 UNIT/0.5 ML ML SQ SCH ×4 (07:30→20:28)
[2022-08-06] MEDS ORDERED: POTASSIUM CL SA 10 MEQ TAB PO ONE (08:15)
[2022-08-06 09:10] LABS: Potassium 3.5 mmol/L (3.5-5.1)
[2022-08-06] MEDS: Meropenem 1,000 MG in NA CHLORIDE 0.9% 100 ML IV SCH ×2 (09:33→20:26)
[2022-08-06] MEDS: carvediloL 6.25 MG TAB PO SCH ×2 (09:34→20:28)
[2022-08-06] MEDS: HEPARIN 5000 UNIT/ML 1 ML VIAL SQ SCH ×2 (09:34→20:29)
--- NOTE | 2022-08-06 13:34 | PN ---
Date of Progress Note: 08/06/2022 Subjective: The patient was seen this morning for followup. No new complaints or problems reported by her. Lying in bed, not in distress. Her mental status has improved. Denies any abdominal pain, nausea, vomiting. Objective: Vital Signs: Reviewed. HEENT: Unremarkable. Lungs: Clear to auscultation. Heart: Sounds normal. Abdomen: Soft. Bowel sounds normal. No guarding, rigidity, tenderness, distention. Extremities: No leg edema. Laboratory Data: Sodium 143, potassium 3.5, chloride 106, bicarb 32, BUN 37, creatinine 1.22, glucos e 138. Impression: 1.Acute kidney injury. 2.Volume depletion. 3.Achalasia cardia. 4.Hypertension. 5.Diabetes mellitus. Plan: We will go ahead and continue current medications. Continue current IV fluids and meropenem w ill be continued for urinary tract infection which is due to the E coli and it is ESBL. PICC line is in place in right upper extremity and I did communicate with the alf today. We will have t o wait until tomorrow for arrangements to be completed for the patient to receive IV meropenem at [facility] and once we finished that arrangements, we can possibly discharge her to go back to alf tomorrow. The patient's daughter was not present in room today when I visited her, so I will try to communicate with her on phone later today. JAVY/BRAULIO Voice ID: [id number] Report ID: [id number]
[2022-08-06] MEDS: D5 0.45 NS 1,000 ML IV SCH (17:46)
[2022-08-07 00:50] VITALS: O2SAT 99
[2022-08-07 05:29] LABS: Potassium 3.5 mmol/L (3.5-5.1)
[2022-08-07] MEDS: INSULIN -REGULAR HUMAN 50 UNIT/0.5 ML ML SQ SCH ×3 (07:30→16:30)
[2022-08-07] MEDS: HEPARIN 5000 UNIT/ML 1 ML VIAL SQ SCH (08:34)
[2022-08-07] MEDS: carvediloL 6.25 MG TAB PO SCH (08:34)
[2022-08-07] MEDS: Meropenem 1,000 MG in NA CHLORIDE 0.9% 100 ML IV SCH (08:35)
[2022-08-07] MEDS ORDERED: POTASSIUM CL SA 10 MEQ TAB PO ONE (09:00)
[2022-08-07 16:34] VITALS: TEMP 98.1
[2022-08-07 17:14] VITALS: BP 151/96
--- NOTE | 2022-08-09 08:07 | DS ---
Date of Discharge: 08/07/2022 Disposition: Discharged to [facility] to [facility]. Physical Examination: HEENT: Unremarkable. Lungs: Clear to auscultation. Heart: Sounds normal. Abdomen: Soft. Bowel sounds normal. No guarding, rigidity, tenderness, or distention. Extremities: No leg edema. Laboratory Data: Upon admission; white count 12, hemoglobin 11.9, platelets 185, this was on 022. Last CBC from 08/05/2022; white count 5.4, hemoglobin 10.8, platelets 166. Last chemistry toda y; sodium 141, potassium 3.5, chloride 104, bicarb 33, BUN 28, creatinine 1.14, glucose 161, magnesiu m . Upon admission; sodium 140, potassium 2.5, chloride 95, bicarb 37, BUN 134, creatinine 2.02, glucose 75. Troponin 24.3. Discharge Medications And Instructions: 1.Albuterol inhaler 2 puffs every 4 hours as needed for shortness of breath, amlodipine 5 mg daily, aspirin 81 mg daily, clopidogrel 75 mg daily, atorvastatin 20 mg in the evening, carvedilol 12.5 mg 2 times a day, fluoxetine 40 mg daily, gabapentin 400 mg 3 times a day, Lantus 10 units subcutaneous i njection daily in the morning with breakfast, levothyroxine 88 mcg daily, oxybutynin 5 mg daily, pant oprazole 40 mg daily, oxygen 2 L/minute per nasal cannula all the time, albuterol nebulizer treatment 4 times a day as needed for shortness of breath, meropenem 1000 mg IV every 12 hours for 10 days. 2.Flush PICC line per protocol. 3.Change PICC line dressing per protocol. 4.Remove PICC line after 10 days of IV antibiotic therapy completed. 5.Stop furosemide, losartan, and magnesium oxide. 6.Consult PT and OT. 7.Fall precautions. 8.Diet: Do not give any solid food. The patient to have a mechanical soft diet, make sure that the patient stays in upright position sitting at 90 degrees angle while eating and fingerstick blood sug ar a.c. and at bedtime with a mild sliding scale. Hospital Course: An 82-year-old very pleasant female patient from prison, who was brought into emergency room with altered mental status. Please see dictated H and P for more information. The callum valadez was evaluated in the ER and was admitted to the hospital with acute kidney failure and volume depletion. She also was noted to have urinary tract infection. Empiric antibiotic, ceftriaxone was started and finally when we got the culture results over the weekend, it came back positive as E coli which was ESBL. At that time, we discontinued ceftriaxone and started her on meropenem as per cultu re and sensitivity results. PICC line was placed over the weekend. Overall, her altered mental stat us and volume depletion as well as acute kidney injury problem has resolved with the above IV fluid h ydration. Her advanced directive status was do not resuscitate as per the patient's decision and thi s was confirmed with the patient's daughter as well during this hospitalization. Overall once the lilo kilgore's condition improved, she was discharged to go back to prison in stable condition with ab ove-mentioned medications and instructions. Final Diagnoses: 1.Acute kidney failure. 2.Volume depletion. 3.Urinary tract infection, organism is Escherichia coli, ESBL. 4.Hypokalemia. 5.Encephalopathy, metabolic. 6.Chronic systolic heart failure. 7.Coronary artery disease. 8.Hypertension. 9.Hyperlipidemia. 10.Type 2 diabetes mellitus. 11.Asthma, mild, intermittent. 12.Osteoarthritis, multiple sites. 13.Hypomagnesemia. 14.Anemia. JAVY/MODL Voice ID: [id number] Report ID: [id number]
== END 2022-08-07 18:33 | DRG 682 ==
LOC: ER 13:22 → ERHOLD 17:38 → 4TH 20:19
PROVIDERS: ADMIT Internal Medicine; ATTEND Internal Medicine
PROC: 02HV33Z Insertion of Infusion Device into Superior Vena Cava, Percutaneous Approach (ICD-10-PCS; principal; 2022-08-05)
DX: N17.9 Acute kidney failure, unspecified (principal); G93.41 Metabolic encephalopathy; N39.0 Urinary tract infection, site not specified; I50.22 Chronic systolic (congestive) heart failure; I13.0 Hypertensive heart and chronic kidney disease with heart failure and stage 1 through stage 4 chronic kidney disease, or unspecified chronic kidney disease; Z16.12 Extended spectrum beta lactamase (ESBL) resistance; N18.9 Chronic kidney disease, unspecified; E11.22 Type 2 diabetes mellitus with diabetic chronic kidney disease; L89.322 Pressure ulcer of left buttock, stage 2; L89.312 Pressure ulcer of right buttock, stage 2; E11.42 Type 2 diabetes mellitus with diabetic polyneuropathy; E86.9 Volume depletion, unspecified; E83.42 Hypomagnesemia; D64.9 Anemia, unspecified; K22.0 Achalasia of cardia; J45.20 Mild intermittent asthma, uncomplicated; E78.5 Hyperlipidemia, unspecified; E87.6 Hypokalemia; M19.09 Primary osteoarthritis, other specified site; I25.10 Atherosclerotic heart disease of native coronary artery without angina pectoris; B96.20 Unspecified Escherichia coli [E. coli] as the cause of diseases classified elsewhere; Z23 Encounter for immunization; Z66 Do not resuscitate; Z95.5 Presence of coronary angioplasty implant and graft; Z79.4 Long term (current) use of insulin; Z79.02 Long term (current) use of antithrombotics/antiplatelets; Z79.84 Long term (current) use of oral hypoglycemic drugs; Z79.82 Long term (current) use of aspirin; Z96.651 Presence of right artificial knee joint; Z90.710 Acquired absence of both cervix and uterus; Z79.899 Other long term (current) drug therapy; Z20.822 Contact with and (suspected) exposure to COVID-19
CPT/HCPCS: 36415; 71045; 80048; 80053; 81015; 82947; 83735; 84132; 84484; 85025; 87077; 87086; 87088; 87186; 87811; 93005; 96365; 96366; 96375; 99285; J1644; J1815; J2185; J2405; J3480; J7799; U0003

== ENCOUNTER 2022-09-19 08:30 | Inpatient (IN) | payer OTHER, MEDICARE ==
[2022-09-19 08:58] LABS: Arterial Blood Carboxyhemoglob 2.1 % (0-1.5); Blood Gas Oxyhemoglobin 90.8 % (94-97); Blood O2 Saturation 94.1 % (92-98.5)
--- NOTE | 2022-09-19 09:31 | RAD REPORT ---
EXAM DESCRIPTION: RAD - Chest Single View - 09/19/2022 9:16 am CLINICAL HISTORY: DYSPNEA COMPARISON: Portable September 05 and August 05 TECHNIQUE: AP portable chest image was obtained 09/19/2022 9:16 am . FINDINGS: Patient has a baseline prominent interstitial pattern that is accentuated by under penetra saul portable technique and shallow inspiration. Interstitial markings are more prominent and suspecte d to be a true interstitial edema or infiltrate. Findings are slightly more pronounced in the right b ase. A concurrent infiltrate is not excluded. Heart size is prominent but not clearly different from the comparison. Central vasculature is increas ed in prominence. No pneumothorax or large pleural effusions seen. No acute bony abnormality seen. No acute aortic fin dings suspected. IMPRESSION: Mild CHF/volume overload pattern superimposed on chronic interstitial lung pattern. Lung markings are slightly more pronounced than the right. Concurrent right base pneumonia is not exc luded.
[2022-09-19 09:32] LABS: Absolute Lymphocytes (CBC) 1.2 K/uL (0.7-4.9); Hematocrit 31.1 % (36.0-45.0); Lymphocytes % 15.2 % (15.3-44.8); MCV 88.9 fL (80-100); MPV 7.6 fL (7.6-11.3); RBC Red Blood Cell Count 3.49 M/uL (3.86-4.86)
--- NOTE | 2022-09-19 09:44 | ER ---
Nurse's Notes [facility] Name: Tsering Osman Age: 82 yrs Sex: Female : 1940 Arrival Date: 09/19/2022 Time: 08:31 Bed 16 Private MD: Diagnosis: Congestive heart failure, Respiratory distress Presentation: 09/19 08:35 Chief complaint: EMS states: [facility] CALLED FOR SOB AND AMS, PT AT BASELINE MENTATION. bp Coronavirus screen: At this time, the client does not indicate any symptoms associated with coronavirus-19. Ebola Screen: No symptoms or risks identified at this time. Initial Sepsis Screen: Does the patient meet any 2 criteria? No. Patient's initial sepsis screen is negative. Does the patient have a suspected source of infection? No. Patient's initial sepsis screen is negative. Risk Assessment: Do you want to hurt yourself or someone else? Patient reports no desire to harm self or others. Onset of symptoms is unknown. Care prior to arrival: Glucose check: 300. 08:35 Method Of Arrival: EMS: [facility] bp 08:35 Acuity: MANNIE 2 bp Triage Assessment: 08:36 General: Appears in no apparent distress. obese, Behavior is cooperative, appropriate bp for age, drowsy. Pain: Denies pain. EENT: No deficits noted. Neuro: Level of Consciousness is obeys commands, lethargic, Oriented to person, place. Cardiovascular: Rhythm is sinus rhythm. Respiratory: Reports shortness of breath Breath sounds are clear bilaterally. Onset: The symptoms/episode began/occurred at an unknown time. the patient has moderate shortness of breath. GI: No signs and/or symptoms were reported involving the gastrointestinal system. : No signs and/or symptoms were reported regarding the genitourinary system. Derm: No signs and/or symptoms reported regarding the dermatologic system. Musculoskeletal: No deficits noted. Historical: - Allergies: 08:36 NKA; bp - Home Meds: 08:36 aspirin 81 mg Oral chew 1 tab once daily [Active]; atorvastatin 20 mg Oral tab 1 tab bp nightly [Active]; Centrum Silver Oral daily [Active]; Coreg 6.25 mg Oral tab 1 tab 2 times per day [Active]; ferrous sulfate 325 mg (65 mg iron) Oral tab 2 tab daily [Active]; Flovent Inhl 100 mcg twice a day [Active]; furosemide 40 mg Oral tab 1 tab 2 times per day [Active]; gabapentin 300 mg Oral cap 3 times per day [Active]; glimepiride 4 mg Oral tab 1 tab twice a day [Active]; magnesium oxide 400 mg Oral tab 400 mg daily [Active]; Onglyza 5 mg Oral tab 1 tab once daily [Active]; Oxybutynin Chloride Oral 1 tab once daily [Active]; Ventolin HFA 90 mcg/actuation Nebulizer nebu 2 puffs Q4H prn [Active]; trazodone 50 mg Oral tab nightly [Active]; Plavix 75 mg Oral tab 1 tab once daily [Active]; Lantus U-100 Insulin 100 unit/mL Sub-Q soln 10 unit daily [Active]; Novolog U-100 Insulin aspart 100 unit/mL Sub-Q soln [Active]; - PMHx: 08:36 neuropathy; Hypertension; Hyperlipidemia; Diabetes - IDDM; CHF; Asthma; bp - PSHx: 08:36 R knee replacement; heart stent; back sx; bp - Immunization history:: Adult Immunizations up to date. - Social history:: Smoking status: Patient denies any tobacco usage or history of. Screenin:42 Abuse screen: Denies threats or abuse. Denies injuries from another. Nutritional bp screening: No deficits noted. Tuberculosis screening: No symptoms or risk factors identified. Fall Risk None identified. Assessment: 08:42 General: SEE TRIAGE NOTE. bp 09:35 Reassessment: PHLEBOTOMY CONTACTED FOR LAB REDRAW. bp 10:30 Reassessment: Patient states symptoms have improved. Cardiovascular: Rhythm is sinus bp rhythm. 11:30 Reassessment: ADMIT IN PROCESS. bp 12:33 Reassessment: ADMIT COMPLETE. bp 12:35 Respiratory: Airway is patent Respiratory effort is even, labored. bp Vital Signs: 08:35 BP 135 / 76; Pulse 100; Resp 26; Temp 99.6; Pulse Ox 91% on 12% Non-rebreather mask; bp 09:15 BP 105 / 64; Pulse 94; Resp 24; Pulse Ox 100% ; bp 10:30 BP 108 / 75; Pulse 94; Resp 22; Pulse Ox 100% ; bp 11:30 BP 126 / 79; Pulse 93; Resp 21; Pulse Ox 100% ; bp ED Course: 08:31 Patient arrived in ED. am2 08:32 Yaron Marie MD is Attending Physician. sp3 08:[address], RN is Primary Nurse. bp 08:36 Triage completed. bp 08:36 Arm band placed on. bp 08:42 Patient has correct armband on for positive identification. Bed in low position. Call bp light in reach. Side rails up X2. 08:42 Client placed on continuous cardiac and pulse oximetry monitoring. NIBP monitoring bp applied. 09:15 Inserted saline lock: 22 gauge in left forearm, using aseptic technique. Blood bp collected. 09:18 XRAY Chest (1 view) In Process Unspecified. EDMS 09:42 Yaron Marie MD is Hospitalizing Provider. sp3 09:42 Alexia Arellano MD is Hospitalizing Provider. sp3 10:00 Gonzalez cath inserted, using sterile technique, 16 Fr., by digital hardware design engineer, balloon inflated, to bp gravity drainage. 12:34 No provider procedures requiring assistance completed. Patient admitted, IV remains in bp place. Administered Medications: 08:35 CANCELLED (): DuoNeb (albuterol 2.5 mg, ipratropium 0.5 mg) (3:1) (2.5 mg - 0.5 mg) 3 sp3 ml Nebulizer once 10:00 Drug: Lasix (furosemide) 40 mg Route: IVP; Site: left forearm; bp 11:35 Follow up: Response: No adverse reaction bp Medication: 08:42 VIS not applicable for this client. bp Outcome: 09:43 Decision to Hospitalize by Provider. sp3 12:34 Admitted to Med/surg accompanied by tech, family with patient, via stretcher, room 428, bp with chart, Report called to JASMIN THURMAN 12:34 Condition: stable 12:34 Instructed on the need for admit. 12:35 Patient left the ED. bp Signatures: Dispatcher [employer] EDTN Sherrie Mason am2 Luis Lane, RN RN bp Yaron Marie MD MD sp3 Corrections: (The following items were deleted from the chart) 08:40 08:36 PMHx: Diabetes - NIDDM; bp bp
--- NOTE | 2022-09-19 09:44 | EDPHYS ---
Physician Documentation [facility] Name: Tsering Osman Age: 82 yrs Sex: Female : 1940 Arrival Date: 09/19/2022 Time: 08:31 Bed 16 Private MD: ED Physician Yaron Marie HPI: 09/19 08:37 This 82 yrs old Female presents to ER via EMS with complaints of Shortness Of Breath. sp3 08:37 82-year-old female with a history of CHF, hypertension, hyperlipidemia, asthma presents sp3 to the ED for low pulse oxygenation and altered mental status/shortness of breath. [facility] was found by jail staff this morning acutely short of breath and they gave "2 duo nebs" as per EMS and activated EMS to bring patient here. Patient per EMS is alert and oriented and interactive dyspneic in the 20+ range in route. Patient is awake and interactive but not fully answering questions. She denies any pain including chest and back not answering more complex questions. I am unsure of her baseline. Limited history, ROS, and physical exam secondary to mental status.. Historical: - Allergies: 08:36 NKA; bp - Home Meds: 08:36 aspirin 81 mg Oral chew 1 tab once daily [Active]; atorvastatin 20 mg Oral tab 1 tab bp nightly [Active]; Centrum Silver Oral daily [Active]; Coreg 6.25 mg Oral tab 1 tab 2 times per day [Active]; ferrous sulfate 325 mg (65 mg iron) Oral tab 2 tab daily [Active]; Flovent Inhl 100 mcg twice a day [Active]; furosemide 40 mg Oral tab 1 tab 2 times per day [Active]; gabapentin 300 mg Oral cap 3 times per day [Active]; glimepiride 4 mg Oral tab 1 tab twice a day [Active]; magnesium oxide 400 mg Oral tab 400 mg daily [Active]; Onglyza 5 mg Oral tab 1 tab once daily [Active]; Oxybutynin Chloride Oral 1 tab once daily [Active]; Ventolin HFA 90 mcg/actuation Nebulizer nebu 2 puffs Q4H prn [Active]; trazodone 50 mg Oral tab nightly [Active]; Plavix 75 mg Oral tab 1 tab once daily [Active]; Lantus U-100 Insulin 100 unit/mL Sub-Q soln 10 unit daily [Active]; Novolog U-100 Insulin aspart 100 unit/mL Sub-Q soln [Active]; - PMHx: 08:36 neuropathy; Hypertension; Hyperlipidemia; Diabetes - IDDM; CHF; Asthma; bp - PSHx: 08:36 R knee replacement; heart stent; back sx; bp - Immunization history:: Adult Immunizations up to date. - Social history:: Smoking status: Patient denies any tobacco usage or history of. ROS: 08:39 Unable to obtain ROS due to patient's inability to understand questions. sp3 Exam: 08:39 Head/Face: Normocephalic, atraumatic. Eyes: Pupils equal round and reactive to light, sp3 extra-ocular motions intact. Lids and lashes normal. Conjunctiva and sclera are non-icteric and not injected. Cornea within normal limits. Periorbital areas with no swelling, redness, or edema. Neck: Trachea midline, no thyromegaly or masses palpated, and no cervical lymphadenopathy. Supple, full range of motion without nuchal rigidity, or vertebral point tenderness. No Meningismus. Chest/axilla: Normal chest wall appearance and motion. Nontender with no deformity. No lesions are appreciated. Cardiovascular: Regular rate and rhythm with a normal S1 and S2. No gallops, murmurs, or rubs. Normal PMI, no JVD. No pulse deficits. Abdomen/GI: Soft, non-tender, with normal bowel sounds. No distension or tympany. No guarding or rebound. No evidence of tenderness throughout. Back: No spinal tenderness. No costovertebral tenderness. Full range of motion. Skin: Warm, dry with normal turgor. Normal color with no rashes, no lesions, and no evidence of cellulitis. 08:39 Constitutional: The patient appears lethargic. 08:39 Respiratory: Respiratory rate 20 to 24 breaths/min. Lungs are clear in the upper lobes with mild rales noted lower posteriorly. Pulse oxygenation varies from the 60s to the 90s and patient has cool extremities. She also has 2+ pitting edema in the lower extremities bilaterally.. Vital Signs: 08:35 BP 135 / 76; Pulse 100; Resp 26; Temp 99.6; Pulse Ox 91% on 12% Non-rebreather mask; bp 09:15 BP 105 / 64; Pulse 94; Resp 24; Pulse Ox 100% ; bp 10:30 BP 108 / 75; Pulse 94; Resp 22; Pulse Ox 100% ; bp 11:30 BP 126 / 79; Pulse 93; Resp 21; Pulse Ox 100% ; bp MDM: 08:34 Patient medically screened. sp3 08:40 Data reviewed: vital signs, nurses notes. ED course: 82-year-old female with multiple sp3 medical problems now with shortness of breath likely from congestive heart failure exacerbation. I'm not highly suspicious of asthma or infection as root cause. Will obtain cardiac work-up including chest x-ray and laboratory values. Diagnosis includes CHF (potentially induced by diet or ACS spectrum), pneumonia, asthma, aspiration. Will admit patient under her PCP Dr. Arellano for care plan once etiology is obtained.. 09:41 ED course: Patient given Lasix and will be admitted to Dr. Arellano's service. Of note sp3 patient is a DO NOT INTUBATE and DO NOT RESUSCITATE as verified with Dr. Arellano.. 09/19 08:33 Order name: Basic Metabolic Panel 3 09/19 08:33 Order name: CBC with Diff; Complete Time: 09:38 3 09/19 08:33 Order name: LFT's 3 09/19 08:33 Order name: Magnesium 3 09/19 08:33 Order name: NT PRO-BNP 3 09/19 08:33 Order name: Troponin HS 3 09/19 08:33 Order name: XRAY Chest (1 view); Complete Time: 09:38 3 09/19 08:33 Order name: EKG; Complete Time: 08:34 3 09/19 08:33 Order name: Cardiac monitoring; Complete Time: 08:43 3 09/19 08:33 Order name: EKG - Nurse/Tech; Complete Time: 10:20 3 09/19 08:33 Order name: ABG: VBG!!!; Complete Time: 09:44 3 09/19 09:24 Order name: SARS RAPID 3 09/19 08:33 Order name: IV Saline Lock; Complete Time: 09:32 3 09/19 08:33 Order name: Labs collected and sent; Complete Time: 09:32 3 09/19 08:33 Order name: O2 Per Protocol; Complete Time: 08:43 sp3 09/19 08:33 Order name: O2 Sat Monitoring; Complete Time: 08:43 sp3 Administered Medications: 08:35 CANCELLED (): DuoNeb (albuterol 2.5 mg, ipratropium 0.5 mg) (3:1) (2.5 mg - 0.5 mg) 3 sp3 ml Nebulizer once 10:00 Drug: Lasix (furosemide) 40 mg Route: IVP; Site: left forearm; bp 11:35 Follow up: Response: No adverse reaction bp Disposition Summary: 09/19/22 09:43 Hospitalization Ordered Hospitalization Status: Inpatient Admission sp3 Provider: Alexia Arellano3 Location: Telemetry/MedSurg (Inpatient) sp3 Condition: Stable sp3 Problem: an acute exacerbation sp3 Symptoms: have worsened sp3 Bed/Room Type: Standard sp3 Room Assignment: 428(09/19/22 11:00) bd Diagnosis - Congestive heart failure, Respiratory distress sp3 Forms: - Medication Reconciliation Form sp3 - SBAR form sp3 Signatures: Dispatcher [employer] EDMarta Kevin Brian, RN RN bp Yaron Marie MD MD sp3 Corrections: (The following items were deleted from the chart) 08:35 08:34 DuoNeb (albuterol 2.5 mg, ipratropium 0.5 mg) (3:1) (2.5 mg - 0.5 mg) 3 ml sp3 Nebulizer once ordered. sp3 08:40 08:36 PMHx: Diabetes - NIDDM; bp bp 11:00 09:43 sp3 bd
[2022-09-19] MEDS ORDERED: FUROSEMIDE 40 MG/4 ML VIAL ONE (09:53)
[2022-09-19 10:11] LABS: Albumin 2.5 g/dL (3.4-5.0); Bilirubin Direct 0.2 mg/dL (0-0.2); Bilirubin Total 0.7 mg/dL (0.2-1.0); Magnesium 1.9 mg/dL (1.8-2.4); Potassium 3.4 mmol/L (3.5-5.1); Protein, Total 7.6 g/dL (6.4-8.2)
[2022-09-19 10:16] LABS: Troponin High Sensitivity 198.4 pg/mL (<58.9)
[2022-09-19 10:31] LABS: SARS-CoV-2 Antigen Rapid Res Negative (Negative)
[2022-09-19] MEDS ORDERED: ALBUTEROL 2.5 MG/3 ML NEB SOL NEB PRN ×2 (12:05→17:00)
[2022-09-19] MEDS ORDERED: IPRATROPIUM BROM 0.5MG/2.5ML NEB PRN ×2 (12:05→17:00)
[2022-09-19 13:44] VITALS: BMI 30.7
[2022-09-19] MEDS: FUROSEMIDE 40 MG/4 ML VIAL IV SCH (17:04)
[2022-09-20 06:25] LABS: Absolute Lymphocytes (CBC) 1.8 K/uL (0.7-4.9); Hematocrit 25.8 % (36.0-45.0); Lymphocytes % 16.9 % (15.3-44.8); MCV 89.5 fL (80-100); MPV 7.7 fL (7.6-11.3); RBC Red Blood Cell Count 2.88 M/uL (3.86-4.86)
[2022-09-20 06:52] LABS: Potassium 3.1 mmol/L (3.5-5.1)
[2022-09-20] MEDS ORDERED: GLUCAGON 1 MG/VIAL IM PRN (07:17)
[2022-09-20] MEDS ORDERED: D50W 25 GM/50 ML SYRINGE IV PRN (07:17)
[2022-09-20] MEDS ORDERED: DEXTROSE 10%-WATER 125 ML IV PRN (07:23)
[2022-09-20] MEDS: INSULIN -REGULAR HUMAN 50 UNIT/0.5 ML ML SQ SCH ×4 (07:30→21:00)
[2022-09-20] MEDS: ENOXAPARIN 30 MG/0.3 ML SQ SCH (09:04)
[2022-09-20] MEDS: FUROSEMIDE 40 MG/4 ML VIAL IV SCH ×2 (09:04→17:34)
[2022-09-20] MEDS ORDERED: ONDANSETRON 4 MG/2 ML VIAL IV PRN (09:36)
[2022-09-20] MEDS: MORPHINE 2 MG/ML SYR IV PRN ×3 (09:40→21:15)
--- NOTE | 2022-09-20 13:09 | EKG ---
Test Date: 2022-09-19 Test Time: 10:09:17 Drag Car Racer: BP MEASUREMENT RESULTS: Intervals: Rate: 95 OR: 222 QRSD: 82 QT: 392 QTc: 492 [place]: P: 92 OR: 222 QRS: 55 T: 83 INTERPRETIVE STATEMENTS: Sinus rhythm with 1st degree AV block Anterior infarct, age undetermined Abnormal ECG Compared to ECG 09/05/2022 12:02:46 Fusion complex(es) no longer present Myocardial infarct finding still present Electronically Signed On 09-20-22 13:07:09 CDT by Edmar Leon
--- NOTE | 2022-09-20 16:44 | HP ---
Date of Admission: 09/19/2022 Chief Complaint: Shortness of breath. History Of Present Illness: This is an 82-year-old female patient, living at [facility], was sent to emergency room when nurse found that her oxygen saturation was low 72% range and she was having altered mental status and shortness of breath with this. After she was evaluated in the ER, s he was admitted to the hospital with acute respiratory failure and acute exacerbation of congestive h eart failure problem. Medications: List reviewed. Review of Systems: Respiratory: As mentioned above. 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 Cardiovascular: Has leg edema and shortness of breath. All other systems reviewed and negative. Allergies: NO KNOWN ALLERGIES. Past Medical History: Significant for achalasia cardia, peripheral neuropathy due to diabetes, hyper tension, allergic rhinitis, type 2 diabetes mellitus, asthma, pulmonary hypertension, hyperlipidemia, coronary artery disease, chronic systolic heart failure, chronic kidney disease, osteoarthritis at m ultiple sites, hypomagnesemia, anemia, monoclonal gammopathy of unknown significance, depression, and osteopenia. Past Surgical History: Significant for hysterectomy, back surgery, knee surgery. Family History: Mother had lung cancer. Social History: Negative for smoking and alcohol use. Physical Examination: Vital Signs: Temperature 97.6, pulse 88, respiratory rate 21, blood pressure 134/65, oxygen saturati on 92% on BiPAP. Height 5 feet 6 inches, weight 190 pounds. General: The patient is lying in bed, not in distress. Does not answer questions as she has some al tered mental status at this time and on BiPAP. HEENT: Head atraumatic, normocephalic. Conjunctivae nonerythematous. Sclerae white. Mouth, no thr ush or edema noted. Ears/Nose, no mass, lesion, discharge noted. Neck: Supple. No JVD, lymph nodes, bruit, thyromegaly noted. Lungs: Bilateral good equal air entry with presence of rales noted in lower lung eckert. Heart: Normal heart sounds, no murmur or gallop. Abdomen: Soft, bowel sounds normal. No guarding, rigidity, tenderness, mass, hepatosplenomegaly, dis tention, or bruit noted. Extremities: Has grade 2 edema of both lower extremities, trace edema of upper extremity. Skin: No rash, ulcer, cellulitis. Lymphatics: No lymph node enlargement in neck, supraclavicular, infraclavicular region. Neuro: No focal neurological deficit. Chest: Unremarkable. External Genitalia: Deferred. Rectal: Deferred. Laboratory Data: COVID-19 test negative. WBC 7.7, hemoglobin 10.2, platelets 257. Blood gas; pH 7. 43, pCO2 of 51, pO2 74, saturation 94% on 100% FiO2. Sodium 137, potassium 3.4, chloride 95, bicarb 33, BUN 35, creatinine 2.16, glucose 294. Troponin 198. Liver function tests unremarkable. Chest x -ray shows changes of congestive heart failure. Impression: 1.Acute respiratory failure. 2.Congestive heart failure, chronic, systolic, with acute exacerbation. 3.Anemia due to chronic kidney disease. 4.Chronic kidney disease, stage 3B. 5.Hypertension. 6.Diabetes mellitus with chronic kidney disease. 7.Hyperlipidemia. 8.Peripheral neuropathy. 9.Achalasia cardia. 10.Osteoarthritis, multiple sites. Plan: We will admit the patient to hospital for further evaluation and management of this problem. The patient is appropriate for inpatient and is expected to spend 2 midnights in hospital. We will c ontinue current BiPAP and oxygen support for acute respiratory failure problem. We will go ahead and give IV Lasix per order for congestive heart failure treatment. We will monitor blood pressure, giv e antihypertensive medication as it becomes necessary per order and we will give DVT prophylaxis per order using Lovenox. I did call the patient's daughter. Details were discussed with her this viv larkin The patient did not want to come to the hospital. She has out of hospital DNR in place and this DNR order was written while in the hospital per the patient's decision and she has told me later here and also told her daughter lately that she is ready to and really does not want to keep on going on like this, so what I would like to recommend now is hospice care upon discharge from the hospital when she goes back to [facility] and these details were discussed with the patient's daughter, who understands that she will communicate with her other sister and I will communicate with the patient as well and at the time of discharge, our plan is to send her back to [facility] with [facility] care. Her overall prognosis is very poor. JAVY/MODL Voice ID: [id number]
[2022-09-21] MEDS: MORPHINE 4 MG/ML SYR IV PRN ×4 (00:34→22:56)
[2022-09-21] MEDS: INSULIN -REGULAR HUMAN 50 UNIT/0.5 ML ML SQ SCH ×4 (07:30→21:00)
[2022-09-21] MEDS: ENOXAPARIN 30 MG/0.3 ML SQ SCH (09:13)
[2022-09-21] MEDS: FUROSEMIDE 40 MG/4 ML VIAL IV SCH ×2 (09:13→17:26)
--- NOTE | 2022-09-21 09:56 | PN ---
Date of Progress Note: 09/20/2022 Subjective: The patient was seen this morning for followup. She was lying in bed, on BiPAP. She is still not completely back to her baseline mental status cain. She does open her eyes and looks at m e, but really did not answer any meaningful questions. Objective: Vital Signs: Reviewed. HEENT: Unremarkable. Lungs: Bilateral good equal air entry, but presence of some rales noted in the lung bases. Not usin g accessory muscles of respiration. Heart: Sounds normal. Abdomen: Soft. Bowel sounds normal. No guarding, rigidity, tenderness, or distention. Extremity: Leg edema present. Laboratory Data: White count 10.6, hemoglobin 8.7, platelets 240. Sodium 139, potassium 3.1, chlori de 96, bicarb 34, BUN 36, creatinine 1.93, glucose 183. Impression: 1.Acute respiratory failure with hypoxia. 2.Hyperkalemia. 3.Congestive heart failure. 4.Hypertension. 5.Diabetes mellitus. 6.Chronic kidney disease, stage 4. Plan: We will go ahead and continue current oxygen and BiPAP support for respiratory failure problem . We will continue current diuretic therapy. Overall prognosis is guarded and during the course of day today, the patient was complaining a lot of back pain requiring some IV morphine. She does have chronic back pain as she has reported in the past. JAVY/MODL Voice ID: [id number] Report ID: [id number]
[2022-09-21 10:00] LABS: Absolute Lymphocytes (CBC) 1.4 K/uL (0.7-4.9); Hematocrit 25.6 % (36.0-45.0); Lymphocytes % 21.8 % (15.3-44.8); MCV 89.9 fL (80-100); MPV 7.5 fL (7.6-11.3); RBC Red Blood Cell Count 2.84 M/uL (3.86-4.86)
[2022-09-21 10:15] LABS: Magnesium 1.8 mg/dL (1.8-2.4); Potassium 3.1 mmol/L (3.5-5.1)
--- NOTE | 2022-09-21 14:34 | EKG ---
Test Date: 2022-09-19 Test Time: 10:11:37 Arcade Attendant: BP MEASUREMENT RESULTS: Intervals: Rate: 96 OR: 214 QRSD: 84 QT: 382 QTc: 482 [place]: P: 111 OR: 214 QRS: 52 T: 99 INTERPRETIVE STATEMENTS: Sinus rhythm with 1st degree AV block Anterior infarct, age undetermined Abnormal ECG Compared to ECG 09/19/2022 10:09:17 No significant changes Electronically Signed On 09-21-22 14:31:21 CDT by Edmar Leon
[2022-09-22] MEDS: MORPHINE 4 MG/ML SYR IV PRN ×3 (02:52→09:38)
[2022-09-22] MEDS: INSULIN -REGULAR HUMAN 50 UNIT/0.5 ML ML SQ SCH ×2 (07:30→11:30)
[2022-09-22 09:35] VITALS: O2SAT 93
[2022-09-22] MEDS: FUROSEMIDE 40 MG/4 ML VIAL IV SCH (09:38)
[2022-09-22] MEDS: ENOXAPARIN 30 MG/0.3 ML SQ SCH (09:38)
[2022-09-22 12:38] VITALS: BP 149/61; TEMP 98.7
--- NOTE | 2022-09-23 15:14 | PN ---
Date of Progress Note: 09/21/2022 Subjective: The patient was seen this morning for followup. She remains sleepy. Moans from time to time but does not answer any meaningful questions. Her daughter was with her when I saw her. No ne w complaints or problems reported. Objective: Vital Signs: Reviewed. HEENT: Examination unremarkable. Lungs: Bilateral good equal air entry. Clear to auscultation. No wheezing. No rales. Heart: Sounds normal. Abdomen: Soft. Bowel sounds normal. No guarding, rigidity, tenderness, or distention. Extremities: Trace leg edema. Laboratory Data: Fingerstick blood sugar readings reviewed. Last blood glucose this morning was 260 . Impression: 1.Acute respiratory failure with hypoxia. 2.Coronary artery disease. 3.Congestive heart failure. 4.Hypertension. 5.Diabetes mellitus. Plan: I did talk to patient's daughter today. The patient is not improving and I am concerned about ongoing rapid decline in her condition. We did talk about hospice care and daughter has informed me that she is ready for the patient to go on hospice care and we will go ahead and start making arrang ements for patient to return back to [facility] with hospice care probably tomorrow. The patient's another daughter from out of town will be arriving today, and I will communicate with the [facility] agency to start the process of admission to hospice upon discharge from the hospital. Overall prognosis is poor. JAVY/MODL Voice ID: [id number] Report ID: [id number]
--- NOTE | 2022-09-24 04:28 | DS ---
Date of Discharge: 09/22/2022 Disposition: The patient was discharged to go to group home with hospice care. Objective: General: The patient is lying in bed, not in distress. Does not communicate, does not a nswer any questions. Remains on oxygen. Vital Signs: Reviewed. HEENT: Unremarkable. Lungs: Bilateral good equal air entry. Clear to auscultation. Heart: Sounds normal. Abdomen: Soft. Bowel sounds normal. No guarding, rigidity, tenderness, or distention. Extremities: No leg edema. Discharge Medication And Instruction: The patient to be admitted to [facility] hospice care upon arrival to group home and [facility] to take over care. Laboratory Data: Labs done during this hospitalization: Upon admission white count was 7.7, hemoglo bin 10.2, platelets 257. Yesterday white count was 6.3, hemoglobin 8.5, platelets 229. Yesterday so dium was 142, potassium 3.1, chloride 98, bicarb 35, BUN 35, creatinine 1.73, glucose 230, magnesium 1.8. Upon admission BUN was 35, creatinine 2.16, glucose 294, sodium 137, potassium 3.4. Troponin u michelle admission was 198. COVID-19 test negative. Hospital Course: This is an 82-year-old pleasant female patient who was sent to emergency room with shortness of breath and hypoxia problem. Please see dictated H and P for more information. After th e patient was sent to the emergency room from group home, she was evaluated and admitted to the [facility] with acute respiratory failure with hypoxia and acute exacerbation of chronic systolic congesti ve heart failure. The patient was given IV Lasix and her leg swelling has improved, but her respirat ory failure with hypoxia did not improve. Her mental status did not improve during this hospitalizat ion and she continued to remain extremely sleepy throughout this hospitalization and did not communic ate, did not answer any questions and continued to have metabolic encephalopathy related to respirato ry failure and hypoxia. She remained on oxygen replacement therapy. Overall, prognosis was poor and the patient's advance directive status is Do Not Resuscitate. I did communicate with the patient's daughter regarding all these details and we talked about hospice care and the patient's daughter was agreeable with hospice care. Arrangements to be made at group home and once all those arrangements were completed, the patient was discharged to go back to group home with hospice care. Final Diagnoses: 1.Acute respiratory failure with hypoxia. 2.Congestive heart failure, chronic, systolic, with acute exacerbation. 3.Coronary artery disease. 4.Anemia due to chronic kidney disease. 5.Hypertension. 6.Chronic kidney disease, stage 3B. 7.Diabetes mellitus with chronic kidney disease. 8.Hyperlipidemia. 9.Peripheral neuropathy. 10.Achalasia cardia. 11.Osteoarthritis, multiple sites. JAVY/MODL Voice ID: [id number] Report ID: [id number]
== END 2022-09-22 16:19 | DRG 291 ==
LOC: ER 08:30 → ERHOLD 09:48 → 4TH 12:02
PROVIDERS: ADMIT Internal Medicine; ATTEND Internal Medicine
DX: I13.0 Hypertensive heart and chronic kidney disease with heart failure and stage 1 through stage 4 chronic kidney disease, or unspecified chronic kidney disease (principal); G93.41 Metabolic encephalopathy; I50.23 Acute on chronic systolic (congestive) heart failure; J96.01 Acute respiratory failure with hypoxia; N18.32 Chronic kidney disease, stage 3b; E11.22 Type 2 diabetes mellitus with diabetic chronic kidney disease; E11.42 Type 2 diabetes mellitus with diabetic polyneuropathy; D63.1 Anemia in chronic kidney disease; E78.5 Hyperlipidemia, unspecified; E87.5 Hyperkalemia; G89.29 Other chronic pain; M54.9 Dorsalgia, unspecified; K22.0 Achalasia of cardia; M19.09 Primary osteoarthritis, other specified site; I25.10 Atherosclerotic heart disease of native coronary artery without angina pectoris; J45.909 Unspecified asthma, uncomplicated; Z66 Do not resuscitate; Z79.4 Long term (current) use of insulin; Z95.5 Presence of coronary angioplasty implant and graft; Z79.82 Long term (current) use of aspirin; Z79.84 Long term (current) use of oral hypoglycemic drugs; Z79.02 Long term (current) use of antithrombotics/antiplatelets; Z79.899 Other long term (current) drug therapy; Z90.710 Acquired absence of both cervix and uterus; Z96.652 Presence of left artificial knee joint; Z20.822 Contact with and (suspected) exposure to COVID-19
CPT/HCPCS: 36415; 51702; 71045; 80048; 80076; 82805; 82947; 83735; 83880; 84484; 85025; 87811; 93005; 94003; 94660; 94760; 96374; 99285; J1650; J1940; J2270